=== PATIENT | male | born 1955 | race Caucasian/White ===

== ENCOUNTER 2023-01-25 06:43 | Emergency (ER) | payer OTHER ==
--- OUTSIDE RECORDS SUMMARY | 2023-01-25 06:51 | XMS REPORT | Continuity of Care Document ---
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 insulin 2020-08 Yes 80U Inject 80 [facility] glargine 2-13 Units into Colle ge (LANTUS) 13:08: the skin. of 100 UNIT/ML 50 Medicin injection e lisinopril 2020-08 Yes 10mg Take 10 mg [facility] (PRINIVIL, 2-13 by mouth. Sharad BERG) 10 13:08: of MG tablet 50 Medicin e Multiple 2020-08 Yes Take by [facility] Vitamins-Mi 2-13 mouth. [facility] e nerals 13:08: of (CENTRUM) 50 Medicin CHEW e rosuvastati 2020-08 Yes 10mg Take 10 mg Juan J n (CRESTOR) 2-13 by mouth. Col lege 10 MG 13:08: of tablet 50 Medicin e Icosapent 2020-08 Yes Take by [facility] Ethyl 1 g 2-13 mouth. [facility] CAPS 13:08: of 50 Medicin e clopidogrel 2020-08 Yes 75mg Take 75 mg Juan J (PLAVIX) 75 2-13 by mouth. [facility] lege MG tablet 13:08: of 50 Medicin e Coenzyme 2020-08 Yes 200mg Take 200 [facility] Q-10 200 MG 2-13 mg by [facility] CAPS 13:08: mouth. of 50 Medicin e folic acid 2020-08 Yes 1mg Take 1 mg [facility] (FOLVITE) 1 2-13 by mouth. [facility] lege MG tablet 13:08: of 50 Medicin e insulin 2020-08 Yes 80U Inject 80 [facility] glargine 2-13 Units into Colle ge (LANTUS) 13:08: the skin. of 100 UNIT/ML 50 Medicin injection e lisinopril 2020-08 Yes 10mg Take 10 mg [facility] (PRINIVIL, 2-13 by mouth. Sharad ege ZESTRIL) 10 13:08: of MG tablet 50 Medicin e Multiple 2020-08 Yes Take by [facility] Vitamins-Mi 2-13 mouth. [facility] e nerals 13:08: of (CENTRUM) 50 Medicin CHEW e rosuvastati 2020-08 Yes 10mg Take 10 mg [facility] n (CRESTOR) 2-13 by mouth. Col lege 10 MG 13:08: of tablet 50 Medicin e Icosapent 2020-08 Yes Take by [facility] Ethyl 1 g 2-13 mouth. College CAPS 13:08: of 50 Medicin e clopidogrel 2020-08 Yes 75mg Take 75 mg Juan J (PLAVIX) 75 1-08 by mouth. Col lege MG tablet 13:54: of 48 Medicin e Coenzyme 2020-08 Yes 200mg Take 200 [facility] Q-10 200 MG 1-08 mg by [facility] CAPS 13:54: mouth. of 48 Medicin e folic acid 2020-08 Yes 1mg Take 1 mg [facility] (FOLVITE) 1 1-08 by mouth. Col lege MG tablet 13:54: of 48 Medicin e insulin 2020-08 Yes 80U Inject 80 [facility] glargine 1-08 Units into Colle ge (LANTUS) 13:54: the skin. of 100 UNIT/ML 48 Medicin injection e lisinopril 2020-08 Yes 10mg Take 10 mg [facility] (PRINIVIL, 1-08 by mouth. Sharad GAYLERIL) 10 13:54: of MG tablet 48 Medicin e Multiple 2020-08 Yes Take by [facility] Vitamins-Mi 1-08 mouth. [facility] e nerals 13:54: of (CENTRUM) 48 Medicin CHEW e rosuvastati 2020-08 Yes 10mg Take 10 mg Juan J n (CRESTOR) 1-08 by mouth. Col lege 10 MG 13:54: of tablet 48 Medicin e Icosapent 2020-08 Yes Take by [facility] Ethyl 1 g 1-08 mouth. College CAPS 13:54: of 48 Medicin e insulin 2019-0 Yes 80U Inject 80 [facility] glargine 6-29 Units into Colle ge (LANTUS) 19:55: the skin. of 100 UNIT/ML 23 Medicin injection e lisinopril 0 Yes 10mg Take 10 mg [facility] (PRINIVIL, 6-29 by mouth. Sharad BERG) 10 19:55: of MG tablet 23 Medicin e Multiple 2020-0 Yes Take by [facility] Vitamins-Mi 6-29 mouth. [facility] e nerals 19:55: of (CENTRUM) 23 Medicin CHEW e rosuvastati 2020-0 Yes 10mg Take 10 mg [facility] n (CRESTOR) 6-29 by mouth. Col lege 10 MG 19:55: of tablet 23 Medicin e Icosapent 2020-0 Yes Take by [facility] Ethyl 6-29 mouth. [facility] 1 19:55: of g CAPS 23 Medicin e clopidogrel 2020-0 Yes 75mg Take 75 mg Juan J (PLAVIX) 75 6-29 by mouth. Col lege MG tablet 19:55: of 23 Medicin e folic acid 2020-0 Yes 1mg Take 1 mg [facility] (FOLVITE) 1 6-29 by mouth. Col lege MG tablet 19:55: of 23 Medicin e insulin 2020-0 Yes 80U Inject 80 [facility] glargine 6-29 Units into Colle ge (LANTUS) 19:55: the skin. of 100 UNIT/ML 23 Medicin injection e lisinopril 2020-0 Yes 10mg Take 10 mg [facility] (PRINIVIL, 6-29 by mouth. Sharad BERG) 10 19:55: of MG tablet 23 Medicin e Multiple 2020-0 Yes Take by [facility] Vitamins-Mi 6-29 mouth. [facility] e nerals 19:55: of (CENTRUM) 23 Medicin CHEW e rosuvastati 2020-0 Yes 10mg Take 10 mg [facility] n (CRESTOR) 6-29 by mouth. Col lege 10 MG 19:55: of tablet 23 Medicin e Icosapent 2020-0 Yes Take by [facility] Ethyl 6-29 mouth. [place] ([facility] 1 19:55: of g CAPS 23 Medicin e clopidogrel 2020-0 Yes 75mg Take 75 mg Juan J (PLAVIX) 75 6-29 by mouth. Col lege MG tablet 19:55: of 23 Medicin e folic acid 2020-0 Yes 1mg Take 1 mg [facility] (FOLVITE) 1 6-29 by mouth. Col lege MG tablet 19:55: of 23 Medicin e arginine 2020-0 2020- No 1000mg Take 1,000 Juan J 500 MG 6-29 06-29 mg by [place] tablet 19:55: 00:00 mouth. of 23 :00 Medicin e B Complex 2020-0 2020- No 1{tbl} Take 1 Altha kathy Vitamins 6-29 06-29 tablet by [facility] (VITAMIN-B 19:55: 00:00 mouth. of COMPLEX) 23 :00 Medicin TABS e Icosapent 2020-0 Yes Take by [facility] Ethyl 4-09 mouth. [place] (VASCEPA) 1 15:05: of g CAPS 18 Medicin e arginine 2020-0 Yes 1000mg Take 1,000 B aylor 500 MG 4-09 mg by [place] tablet 15:04: mouth. of 05 Medicin e B Complex 2020-0 Yes 1{tbl} Take 1 [facility]l or Vitamins 4-09 tablet by [facility] (VITAMIN-B 15:04: mouth. of COMPLEX) 05 Medicin TABS e clopidogrel 2020-0 Yes 75mg Take 75 mg [facility] (PLAVIX) 75 4-09 by mouth. Col lege MG tablet 15:04: of 05 Medicin e Coenzyme 2020-0 Yes 200mg Take 200 [facility] or Q-10 200 MG 4-09 mg by [place] CAPS 15:04: mouth. of 05 Medicin e folic acid 2020-0 Yes 1mg Take 1 mg [facility] (FOLVITE) 1 4-09 by mouth. Col lege MG tablet 15:04: of 05 Medicin e insulin 2020-0 Yes 80U Inject 80 [facility] r glargine 4-09 Units into [facility] (LANTUS) 15:04: the skin. of 100 UNIT/ML 05 Medicin injection e lisinopril 2020-0 Yes 10mg Take 10 mg [facility] (PRINIVIL, 4-09 by mouth. Sharad ege ZESTRIL) 10 15:04: of MG tablet 05 Medicin e Multiple 2020-0 Yes Take by [facility] Vitamins-Mi 4-09 mouth. [facility] nerals 15:04: of (CENTRUM) 05 Medicin CHEW e rosuvastati 2020-0 Yes 10mg Take 10 mg [facility] n (CRESTOR) 4-09 by mouth. Col lege 10 MG 15:04: of tablet 05 Medicin e Coenzyme 2019-0 Yes 200mg Take 200 [facility] Q-10 200 MG 4-09 mg by [facility] CAPS 15:04: mouth. of 05 Medicin e Coenzyme 2019-0 Yes 200mg Take 200 [facility] Q-10 200 MG 4-09 mg by [facility] CAPS 15:04: mouth. of 05 Medicin e Garlic 1000 2020- No 1000mg Take 1,000 Juan J MG CAPS 4 04-09 mg by College 15:04: 00:00 mouth. of 05 :00 Medicin e RaNITidine 2020- No 150mg Take 150 [facility] HCl 150 MG 4- 04-09 mg by [facility] CAPS 15:03: 00:00 mouth. of 50 :00 Medicin e Newborn-3-aci 2019- No 2g Take 2 g [facility] d Ethyl 11-25 04-09 by mouth. Colleg e Esters 1 g 15:03: 00:00 of CAPS 17 :00 Medicin e levofloxaci 2017-08 2020- No 750mg Take 1 Tab Juan J n 2-21 04-09 by mouth [place] ([facility]) 00:00: 00:00 daily. of 750 MG 00 :00 Medicin tablet e multivit-ir 2017-08 Yes Chew. Metho di on-min-foli 2-10 st c acid 10:35: Hospita (multivitam 06 l in-iron-min erals-folic acid) 3,500-18-0. 4 unit-mg-mg tablet,chew able chewable tablet folic acid 2017-08 Yes 1mg Take 1 mg [facility] (FOLVITE) 1 2-[address] [facility] tablet 10:35: Hospita 06 l ranitidine 2017-08 Yes 150mg Take 150 [facility] (ZANTAC) 2-[address] 150 MG 10:35: mouth. Hospita capsule 06 l TRULICITY 2017-08 Yes INJECT 1 [facility] 0.75 mg/0.5 0-[address] mL pen 00:00: ONCE A Hospita injector 00 WEEK l Cadexomer 2017-08 2020- No Apply to Altha kathy Iodine 0.9 0-03 04-09 affected Sharad ege % GEL 00:00: 00:00 area every of 00 :00 other day Medicin e omega-3 Yes TAKE 2 [facility] acid ethyl 05-[address] esters 00:00: BY MOUTH 2 Hospi ta (LOVAZA) 1 00 TIMES A l gram DAY capsule NOVOLOG 100 2017-0 Yes USE PER [facility] UNIT/ML 05-09 SLIDING College injection 00:00: SCALE of 00 TWICE A Medicin DAY e NOVOLOG 100 2018-0 Yes USE PER [facility] UNIT/ML 05-09 SLIDING College injection 00:00: SCALE of 00 TWICE A Medicin DAY e NOVOLOG 100 2018-0 Yes USE PER Juan J UNIT/ML 05-09 SLIDING College injection 00:00: SCALE of 00 TWICE A Medicin DAY e NOVOLOG 100 2017-0 Yes USE PER [facility] UNIT/ML 05-09 SLIDING College injection 00:00: SCALE of 00 TWICE A Medicin DAY e NOVOLOG 100 2017-0 Yes USE PER Juan J UNIT/ML 05-09 SLIDING College injection 00:00: SCALE of 00 TWICE A Medicin DAY e NOVOLOG 100 2018-0 Yes USE PER [facility] UNIT/ML 05-09 SLIDING College injection 00:00: SCALE of 00 TWICE A Medicin DAY e NOVOLOG 100 2017-0 Yes USE PER [facility] UNIT/ML 05-09 SLIDING College injection 00:00: SCALE of 00 TWICE A Medicin DAY e NOVOLOG 100 2018-0 Yes USE PER [facility] UNIT/ML 05-09 SLIDING College injection 00:00: SCALE of 00 TWICE A Medicin DAY e NOVOLOG 100 2018-0 Yes USE PER Juan J UNIT/ML 05-09 SLIDING College injection 00:00: SCALE of 00 TWICE A Medicin DAY e NOVOLOG 100 2018-0 Yes USE PER Juan J UNIT/ML 05-09 SLIDING College injection 00:00: SCALE of 00 TWICE A Medicin DAY e NOVOLOG 100 2018-0 Yes USE PER Juan J UNIT/ML 05-09 SLIDING College injection 00:00: SCALE of 00 TWICE A Medicin DAY e NOVOLOG 100 2018-0 Yes USE PER Juan J UNIT/ML 05-09 SLIDING College injection 00:00: SCALE of 00 TWICE A Medicin DAY e NOVOLOG 100 2018-0 Yes USE PER [facility] UNIT/ML 05-09 SLIDING College injection 00:00: SCALE of 00 TWICE A Medicin DAY e insulin 2018-0 Yes 20U Inject 20 Metho di ASPART 9-[address] (NovoLOG) 00:00: under the Hos nghia 100 unit/mL 00 skin. l injection NOVOLOG Yes USE PER Meth roula U-100 - SLIDING st INSULIN 00:00: SCALE Hospita ASPART 100 00 TWICE A l unit/mL DAY 90 injection lisinopril Yes 10mg Take 10 mg M ethodi (PRINIVIL,Z -[address] ESTRIL) 10 00:00: Hospita mg tablet 00 l rosuvastati Yes TAKE 1 Meth r[facility] n (CRESTOR) 05-[address] 10 MG 00:00: MOUTH Hospita tablet 00 EVERY l NIGHT AT BEDTIME 90 clopidogrel 2020- No TAKE 1 Altha kathy (PLAVIX) 75 05-08- TABLET BY Co llege MG tablet 00:00: 00:00 MOUTH of 00 :00 EVERY DAY Medicin e lisinopril 2019- No TAKE 1 [facility] (PRINIVIL, 05-08- TABLET BY Col legfarzana ZERIL) 10 00:00: 00:00 MOUTH of MG tablet 00 :00 EVERY DAY Medic in e ONE TOUCH Yes TEST TWICE [facility] ULTRA TEST 18 DAILY College 00:00: of 00 Medicin e ONE TOUCH Yes TEST TWICE [facility] ULTRA TEST 05-06 DAILY College 00:00: of 00 Medicin e ONE TOUCH Yes TEST TWICE [facility] ULTRA TEST 05-06 DAILY College 00:00: of 00 Medicin e ONE TOUCH Yes TEST TWICE [facility] ULTRA TEST 18 DAILY College 00:00: of 00 Medicin e ONE TOUCH Yes TEST TWICE [facility] ULTRA TEST 18 DAILY College 00:00: of 00 Medicin e ONE TOUCH Yes TEST TWICE [facility] ULTRA TEST 18 DAILY College 00:00: of 00 Medicin e ONE TOUCH Yes TEST TWICE [facility] ULTRA TEST 18 DAILY College 00:00: of 00 Medicin e ONE TOUCH Yes TEST TWICE [facility] ULTRA TEST 18 DAILY College 00:00: of 00 Medicin e ONE TOUCH Yes TEST TWICE [facility] ULTRA TEST 18 DAILY College 00:00: of 00 Medicin e ONE TOUCH Yes TEST TWICE [facility] ULTRA TEST 05-06 DAILY College 00:00: Medicin e ONE TOUCH Yes TEST TWICE [facility] ULTRA TEST 05-06 DAILY College 00:00: Medicin e ONE TOUCH Yes TEST TWICE [facility] ULTRA TEST 05-06 DAILY College 00:00: Medicin e ONE TOUCH Yes TEST TWICE [facility] ULTRA TEST 05-06 DAILY College 00:00: of Medicin e insulin Yes INJECT [facility] detemir 03-[address] U-100 00:00: SKIN 70 Hospita (LEVEMIR 00 UNITS l U-100 DAILY INSULIN) 100 unit/mL injection LEVEMIR 100 2019- No INJECT Altha kathy UNIT/ML 03-12 UNDER THE Colleg e injection 00:00: 00:00 SKIN 70 of 00 :00 UNITS Medicin DAILY e mafenide 2019- No Apply [facility] (SULFAMYLON 2-13 11-25 topically. C ollege ) cream 00:00: 00:00 of 00 :00 Medicin e nitrofurant nitrofurant No nitrofuran Mata oin oin toin [facility] monohydrate monohydrate monohydrat Urology /macrocryst /macrocryst e/macrocry als 100 mg als 100 mg stals 100 capsule capsule mg capsule Take 1 Take 1 Take 1 capsule capsule capsule every 12 every 12 every 12 hours by hours by hours by oral route. oral route. oral route. omega-3 omega-3 No omega-3 [place] acid ethyl acid ethyl acid ethyl [facility] esters 1 esters 1 esters 1 Uro logy gram gram gram capsule capsule capsule TAKE 2 TAKE 2 TAKE 2 CAPSULES BY CAPSULES BY CAPSULES MOUTH TWICE MOUTH TWICE BY MOUTH A DAY A DAY TWICE A DAY rosuvastati rosuvastati No rosuvastat [place] n 40 mg n 40 mg in 40 mg [facility] tablet TAKE tablet TAKE tablet Urology 1 TABLET BY 1 TABLET BY TAKE 1 MOUTH EVERY MOUTH EVERY TABLET BY DAY WITH DAY WITH MOUTH EVENING EVENING EVERY DAY MEAL MEAL WITH EVENING MEAL Rybelsus 3 Rybelsus 3 No Rybelsus 3 Mtaa mg tablet mg tablet mg tablet [facility] PLEASE SEE PLEASE SEE PLEASE SEE Urology ATTACHED ATTACHED ATTACHED FOR FOR FOR DETAILED DETAILED DETAILED DIRECTIONS DIRECTIONS DIRECTIONS Spiriva Spiriva No Spiriva [place] Respimat Respimat Respimat Met ro 1.25 1.25 1.25 Urology mcg/actuati mcg/actuati mcg/actuat on solution on solution ion for for solution inhalation inhalation for INHALE 2 INHALE 2 inhalation PUFFS BY PUFFS BY INHALE 2 MOUTH DAILY MOUTH DAILY PUFFS BY MOUTH DAILY tadalafil tadalafil No tadalafil [place] 10 mg 10 mg 10 mg [facility] tablet TAKE tablet TAKE tablet Urology ONE (1) ONE (1) TAKE ONE TABLET(S) TABLET(S) (1) BY MOUTH BY MOUTH TABLET(S) DAILY. DAILY. BY MOUTH DAILY. tamsulosin tamsulosin No tamsulosin [place] 0.4 mg 0.4 mg 0.4 mg [facility] capsule capsule capsule Urolog y TAKE ONE TAKE ONE TAKE ONE (1) (1) (1) CAPSULE(S) CAPSULE(S) CAPSULE(S) BY MOUTH BY MOUTH BY MOUTH DAILY. DAILY. DAILY. amoxicillin amoxicillin No amoxicilli [place] 500 mg 500 mg n 500 mg [facility] capsule capsule capsule Urolog y TAKE 1 TAKE 1 TAKE 1 CAPSULE BY CAPSULE BY CAPSULE BY MOUTH THREE MOUTH THREE MOUTH TIMES A DAY TIMES A DAY THREE UNTIL UNTIL TIMES A FINISHED FINISHED DAY UNTIL FINISHED BD Veo BD Veo No BD Veo [place] Insulin Insulin Insulin [facility] Syringe Syringe Syringe Urolog y Ultra-Fine Ultra-Fine Ultra-Fine 1 mL 31 1 mL 31 1 mL 31 gauge x gauge x gauge x 15/64" USE 15/64" USE 15/64" USE FOR INSULIN FOR INSULIN FOR INJECTIONS INJECTIONS INSULIN 3 TIMES A 3 TIMES A INJECTIONS DAY DAY 3 TIMES A DAY brimonidine brimonidine No brimonidin [place] 0.2 % eye 0.2 % eye e 0.2 % Me tro drops drops eye drops Urology INSTILL 1 INSTILL 1 INSTILL 1 DROP INTO DROP INTO DROP INTO BOTH EYES BOTH EYES BOTH EYES TWICE A DAY TWICE A DAY TWICE A DAY ciprofloxac ciprofloxac No ciprofloxa [place] in 500 mg in 500 mg yasmine 500 mg [facility] tablet TAKE tablet TAKE tablet Urology 1 TABLET BY 1 TABLET BY TAKE 1 MOUTH EVERY MOUTH EVERY TABLET BY 12 HOURS 12 HOURS MOUTH EVERY 12 HOURS clopidogrel clopidogrel No clopidogre Mata 75 mg 75 mg l 75 mg [facility] tablet TAKE tablet TAKE tablet Urology 1 TABLET BY 1 TABLET BY TAKE 1 MOUTH EVERY MOUTH EVERY TABLET BY DAY DAY MOUTH EVERY DAY Co Q-10 100 Co Q-10 100 No Co Q-10 Mata mg capsule mg capsule 100 mg M etro capsule Urology hydrocodone hydrocodone No hydrocodon [place] 10 10 e 10 [facility] mg-acetamin mg-acetamin mg-acetami Urology ophen 325 ophen 325 nophen 325 mg tablet mg tablet mg tablet TAKE 1 TAKE 1 TAKE 1 TABLET BY TABLET BY TABLET BY MOUTH EVERY MOUTH EVERY MOUTH 6 HOURS 6 HOURS EVERY 6 NEEDED NEEDED HOURS NEEDED Lantus Lantus No Lantus [place] U-100 U-100 U-100 [facility] Insulin Insulin Insulin Urolog y Lantus Lantus No Lantus [place] U-100 U-100 U-100 [facility] Insulin 100 Insulin 100 Insulin Urology unit/mL unit/mL 100 subcutaneou subcutaneou unit/mL s solution s solution subcutaneo INJECT 90 INJECT 90 us UNITS UNITS solution SUBCUTANEOU SUBCUTANEOU INJECT 90 SLY ONCE A SLY ONCE A UNITS DAY AT THE DAY AT THE SUBCUTANEO SAME TIME SAME TIME USLY ONCE A DAY AT THE SAME TIME lisinopril lisinopril No lisinopril [place] 20 mg 20 mg 20 mg [facility] tablet TAKE tablet TAKE tablet Urology 1 TABLET BY 1 TABLET BY TAKE 1 MOUTH EVERY MOUTH EVERY TABLET BY DAY DAY MOUTH EVERY DAY metoprolol metoprolol No metoprolol [place] succinate succinate succinate [facility] ER 25 mg ER 25 mg ER 25 mg Uro logy tablet,exte tablet,exte tablet,ext nded nded ended release 24 release 24 release 24 hr TAKE 1 hr TAKE 1 hr TAKE 1 TABLET BY TABLET BY TABLET BY MOUTH EVERY MOUTH EVERY MOUTH DAY DAY EVERY DAY nitrofurant nitrofurant No nitrofuran [place] oin oin toin [facility] macrocrysta macrocrysta macrocryst Urology l 100 mg l 100 mg al 100 mg capsule capsule capsule TAKE 1 TAKE 1 TAKE 1 CAPSULE BY CAPSULE BY CAPSULE BY MOUTH EVERY MOUTH EVERY MOUTH DAY FOR 90 DAY FOR 90 EVERY DAY DAYS DAYS FOR 90 DAYS nitrofurant nitrofurant No nitrofuran [place] oin oin toin [facility] monohydrate monohydrate monohydrat Urology /macrocryst /macrocryst e/macrocry als 100 mg als 100 mg stals 100 capsule capsule mg capsule Take 1 Take 1 Take 1 capsule capsule capsule every 12 every 12 every 12 hours by hours by hours by oral route. oral route. oral route. Novolog Novolog No Novolog [place] U-100 U-100 U-100 [facility] Insulin Insulin Insulin Urolog y aspart aspart aspart omega-3 omega-3 No omega-3 [place] acid ethyl acid ethyl acid ethyl [facility] esters 1 esters 1 esters 1 Uro logy gram gram gram capsule capsule capsule TAKE 2 TAKE 2 TAKE 2 CAPSULES BY CAPSULES BY CAPSULES MOUTH TWICE MOUTH TWICE BY MOUTH A DAY A DAY TWICE A DAY rosuvastati rosuvastati No rosuvastat [place] n 20 mg n 20 mg in 20 mg [facility] tablet tablet tablet Urology rosuvastati rosuvastati No rosuvastat [place] n 40 mg n 40 mg in 40 mg [facility] tablet TAKE tablet TAKE tablet Urology 1 TABLET BY 1 TABLET BY TAKE 1 MOUTH EVERY MOUTH EVERY TABLET BY DAY WITH DAY WITH MOUTH EVENING EVENING EVERY DAY MEAL MEAL WITH EVENING MEAL Rybelsus 3 Rybelsus 3 No Rybelsus 3 Mata mg tablet mg tablet mg tablet [facility] PLEASE SEE PLEASE SEE PLEASE SEE Urology ATTACHED ATTACHED ATTACHED FOR FOR FOR DETAILED DETAILED DETAILED DIRECTIONS DIRECTIONS DIRECTIONS amoxicillin amoxicillin No amoxicilli [place] 500 mg 500 mg n 500 mg [facility] capsule capsule capsule Urolog y TAKE 1 TAKE 1 TAKE 1 CAPSULE BY CAPSULE BY CAPSULE BY MOUTH THREE MOUTH THREE MOUTH TIMES A DAY TIMES A DAY THREE UNTIL UNTIL TIMES A FINISHED FINISHED DAY UNTIL FINISHED Spiriva Spiriva No Spiriva [place] Respimat Respimat Respimat Met ro 1.25 1.25 1.25 Urology mcg/actuati mcg/actuati mcg/actuat on solution on solution ion for for solution inhalation inhalation for INHALE 2 INHALE 2 inhalation PUFFS BY PUFFS BY INHALE 2 MOUTH DAILY MOUTH DAILY PUFFS BY MOUTH DAILY tadalafil tadalafil No tadalafil [place] 10 mg 10 mg 10 mg [facility] tablet TAKE tablet TAKE tablet Urology ONE (1) ONE (1) TAKE ONE TABLET(S) TABLET(S) (1) BY MOUTH BY MOUTH TABLET(S) DAILY. DAILY. BY MOUTH DAILY. tadalafil tadalafil No tadalafil [place] 20 mg 20 mg 20 mg [facility] tablet TAKE tablet TAKE tablet Urology ONE (1) ONE (1) TAKE ONE TABLET(S) TABLET(S) (1) BY MOUTH BY MOUTH TABLET(S) DAILY. DAILY. BY MOUTH DAILY. tamsulosin tamsulosin No tamsulosin [place] 0.4 mg 0.4 mg 0.4 mg [facility] capsule capsule capsule Urolog y TAKE ONE TAKE ONE TAKE ONE (1) (1) (1) CAPSULE(S) CAPSULE(S) CAPSULE(S) BY MOUTH BY MOUTH BY MOUTH DAILY. DAILY. DAILY. BD Veo BD Veo No BD Veo [facility] Insulin Insulin Insulin [facility] Syringe Syringe Syringe Urolog y Ultra-Fine Ultra-Fine Ultra-Fine 1 mL 31 1 mL 31 1 mL 31 gauge x gauge x gauge x " USE " USE " USE FOR INSULIN FOR INSULIN FOR INJECTIONS INJECTIONS INSULIN 3 TIMES A 3 TIMES A INJECTIONS DAY DAY 3 TIMES A DAY brimonidine brimonidine No brimonidin Mata 0.2 % eye 0.2 % eye e 0.2 % Me tro drops PUT drops PUT eye drops Urology ONE DROP ONE DROP PUT ONE TWICE A DAY TWICE A DAY DROP TWICE INTO RIGHT INTO RIGHT A DAY INTO EYE EYE RIGHT EYE Cialis 10 Cialis 10 No 1 Q1D Cialis 10 Mata mg tablet mg tablet mg tablet [facility] Take 1 Take 1 Take 1 Urology tablet tablet tablet every day every day every day by oral by oral by oral route. route. route. ciprofloxac ciprofloxac No ciprofloxa [place] in 500 mg in 500 mg yasmine 500 mg [facility] tablet TAKE tablet TAKE tablet Urology 1 TABLET BY 1 TABLET BY TAKE 1 MOUTH TWICE MOUTH TWICE TABLET BY A DAY A DAY MOUTH TWICE A DAY clopidogrel clopidogrel No clopidogre [place] 75 mg 75 mg l 75 mg [facility] tablet TAKE tablet TAKE tablet Urology 1 TABLET BY 1 TABLET BY TAKE 1 MOUTH EVERY MOUTH EVERY TABLET BY DAY DAY MOUTH EVERY DAY Flomax 0.4 Flomax 0.4 No 1capsul Q1D Flomax 0.4 Mata mg capsule mg capsule e(s) mg capsule [facility] Take 1 Take 1 Take 1 Urology capsule capsule capsule every day every day every day by oral by oral by oral route. route. route. hydrocodone hydrocodone No hydrocodon [place] 10 10 e 10 [facility] mg-acetamin mg-acetamin mg-acetami Urology ophen 325 ophen 325 nophen 325 mg tablet mg tablet mg tablet TAKE 1 TAKE 1 TAKE 1 TABLET BY TABLET BY TABLET BY MOUTH EVERY MOUTH EVERY MOUTH 6 HOURS 6 HOURS EVERY 6 NEEDED NEEDED HOURS NEEDED Lantus Lantus No Lantus [place] U-100 U-100 U-100 [facility] Insulin 100 Insulin 100 Insulin Urology unit/mL unit/mL 100 subcutaneou subcutaneou unit/mL s solution s solution subcutaneo INJECT 90 INJECT 90 us UNITS UNITS solution SUBCUTANEOU SUBCUTANEOU INJECT 90 SLY ONCE A SLY ONCE A UNITS DAY AT THE DAY AT THE SUBCUTANEO SAME TIME SAME TIME USLY ONCE A DAY AT THE SAME TIME lisinopril lisinopril No lisinopril [place] 20 mg 20 mg 20 mg [facility] tablet TAKE tablet TAKE tablet Urology 1 TABLET BY 1 TABLET BY TAKE 1 MOUTH EVERY MOUTH EVERY TABLET BY DAY DAY MOUTH EVERY DAY metoprolol metoprolol No metoprolol [place] succinate succinate succinate [facility] ER 25 mg ER 25 mg ER 25 mg Uro logy tablet,exte tablet,exte tablet,ext nded nded ended release 24 release 24 release 24 hr TAKE 1 hr TAKE 1 hr TAKE 1 TABLET BY TABLET BY TABLET BY MOUTH EVERY MOUTH EVERY MOUTH DAY DAY EVERY DAY omega-3 omega-3 No omega-3 [place] acid ethyl acid ethyl acid ethyl [facility] esters 1 esters 1 esters 1 Uro logy gram gram gram capsule capsule capsule TAKE 2 TAKE 2 TAKE 2 CAPSULES BY CAPSULES BY CAPSULES MOUTH TWICE MOUTH TWICE BY MOUTH A DAY A DAY TWICE A DAY rosuvastati rosuvastati No rosuvastat [place] n 40 mg n 40 mg in 40 mg [facility] tablet TAKE tablet TAKE tablet Urology 1 TABLET BY 1 TABLET BY TAKE 1 MOUTH EVERY MOUTH EVERY TABLET BY DAY WITH DAY WITH MOUTH EVENING EVENING EVERY DAY MEAL MEAL WITH EVENING MEAL Rybelsus 3 Rybelsus 3 No Rybelsus 3 Mata mg tablet mg tablet mg tablet [facility] PLEASE SEE PLEASE SEE PLEASE SEE Urology ATTACHED ATTACHED ATTACHED FOR FOR FOR DETAILED DETAILED DETAILED DIRECTIONS DIRECTIONS DIRECTIONS Spiriva Spiriva No Spiriva [place] Respimat Respimat Respimat Met ro 1.25 1.25 1.25 Urology mcg/actuati mcg/actuati mcg/actuat on solution on solution ion for for solution inhalation inhalation for INHALE 2 INHALE 2 inhalation PUFFS BY PUFFS BY INHALE 2 MOUTH DAILY MOUTH DAILY PUFFS BY MOUTH DAILY amoxicillin amoxicillin No amoxicilli [place] 500 mg 500 mg n 500 mg [facility] capsule capsule capsule Urolog y TAKE 1 TAKE 1 TAKE 1 CAPSULE BY CAPSULE BY CAPSULE BY MOUTH THREE MOUTH THREE MOUTH TIMES A DAY TIMES A DAY THREE UNTIL UNTIL TIMES A FINISHED FINISHED DAY UNTIL FINISHED BD Veo BD Veo No BD Veo [facility] Insulin Insulin Insulin [facility] Syringe Syringe Syringe Urolog y Ultra-Fine Ultra-Fine Ultra-Fine 1 mL 31 1 mL 31 1 mL 31 gauge x gauge x gauge x " USE " USE " USE FOR INSULIN FOR INSULIN FOR INJECTIONS INJECTIONS INSULIN 3 TIMES A 3 TIMES A INJECTIONS DAY DAY 3 TIMES A DAY brimonidine brimonidine No brimonidin [place] 0.2 % eye 0.2 % eye e 0.2 % Me tro drops PUT drops PUT eye drops Urology ONE DROP ONE DROP PUT ONE TWICE A DAY TWICE A DAY DROP TWICE INTO RIGHT INTO RIGHT A DAY INTO EYE EYE RIGHT EYE Cialis 20 Cialis 20 No 1 Q1D Cialis 20 Mata mg tablet mg tablet mg tablet [facility] Take 1 Take 1 Take 1 Urology tablet tablet tablet every day every day every day by oral by oral by oral route. route. route. ciprofloxac ciprofloxac No ciprofloxa [place] in 500 mg in 500 mg yasmine 500 mg [facility] tablet TAKE tablet TAKE tablet Urology 1 TABLET BY 1 TABLET BY TAKE 1 MOUTH TWICE MOUTH TWICE TABLET BY A DAY A DAY MOUTH TWICE A DAY clopidogrel clopidogrel No clopidogre [place] 75 mg 75 mg l 75 mg [facility] tablet TAKE tablet TAKE tablet Urology 1 TABLET BY 1 TABLET BY TAKE 1 MOUTH EVERY MOUTH EVERY TABLET BY DAY DAY MOUTH EVERY DAY hydrocodone hydrocodone No hydrocodon [place] 10 10 e 10 [facility] mg-acetamin mg-acetamin mg-acetami Urology ophen 325 ophen 325 nophen 325 mg tablet mg tablet mg tablet TAKE 1 TAKE 1 TAKE 1 TABLET BY TABLET BY TABLET BY MOUTH EVERY MOUTH EVERY MOUTH 6 HOURS 6 HOURS EVERY 6 NEEDED NEEDED HOURS NEEDED Lantus Lantus No Lantus [place] U-100 U-100 U-100 [facility] Insulin 100 Insulin 100 Insulin Urology unit/mL unit/mL 100 subcutaneou subcutaneou unit/mL s solution s solution subcutaneo INJECT 90 INJECT 90 us UNITS UNITS solution SUBCUTANEOU SUBCUTANEOU INJECT 90 SLY ONCE A SLY ONCE A UNITS DAY AT THE DAY AT THE SUBCUTANEO SAME TIME SAME TIME USLY ONCE A DAY AT THE SAME TIME lisinopril lisinopril No lisinopril [place] 20 mg 20 mg 20 mg [facility] tablet TAKE tablet TAKE tablet Urology 1 TABLET BY 1 TABLET BY TAKE 1 MOUTH EVERY MOUTH EVERY TABLET BY DAY DAY MOUTH EVERY DAY metoprolol metoprolol No metoprolol [place] succinate succinate succinate [facility] ER 25 mg ER 25 mg ER 25 mg Uro logy tablet,exte tablet,exte tablet,ext nded nded ended release 24 release 24 release 24 hr TAKE 1 hr TAKE 1 hr TAKE 1 TABLET BY TABLET BY TABLET BY MOUTH EVERY MOUTH EVERY MOUTH DAY DAY EVERY DAY nitrofurant nitrofurant No 1capsul Q1D nitrofuran [place] oin oin e(s) toin [facility] macrocrysta macrocrysta macrocryst U[facility] l 100 mg l 100 mg al 100 mg capsule capsule capsule Take 1 Take 1 Take 1 capsule capsule capsule every day every day every day by oral by oral by oral route for route for route for 90 days. 90 days. 90 days. take twice take twice take twice a day for a day for a day for the first the first the first week, then week, then week, then take one take one take one pill daily pill daily pill daily x 3 months x 3 months x 3 months Vital Signs Vital Name Observation Time Observation Value Comments Source HEIGHT 2023-01-07 11:46:00 180.3 cm WEIGHT 2023-01-07 11:46:00 88.451 kg HEIGHT 2023-01-07 11:46:00 180.3 cm WEIGHT 2023-01-07 11:46:00 88.451 kg HEIGHT 2023-01-07 11:46:00 180.3 cm WEIGHT 2023-01-07 11:46:00 88.451 kg Body height 2022-11-01 16:16:00 180.3 cm [facility] [place] weight 2022-11-01 16:16:00 94.802 kg [facility] BMI 2022-11-01 16:16:00 29.15 kg/m2 [facility] HEIGHT 2022-10-17 10:05:00 180.3 cm WEIGHT 2022-10-17 10:05:00 92.3 kg HEIGHT 2022-09-27 11:34:00 180.3 cm WEIGHT 2022-09-27 11:34:00 89.359 kg HEIGHT 2022-10-17 10:05:00 180.3 cm WEIGHT 2022-10-17 10:05:00 92.3 kg HEIGHT 2022-09-27 11:34:00 180.3 cm WEIGHT 2022-09-27 11:34:00 89.359 kg HEIGHT 2022-10-17 10:05:00 180.3 cm WEIGHT 2022-10-17 10:05:00 92.3 kg HEIGHT 2022-09-27 11:34:00 180.3 cm WEIGHT 2022-09-27 11:34:00 89.359 kg Height 2022-10-11 00:00:00 71 [in_i] [facility] Urolog BMI (Body Mass Index) 2022-10-11 00:00:00 27.2 kg/m2 [facility] Body Weight 2022-10-11 00:00:00 195 [lb_av] [facility] Systolic blood 2022-07-24 15:45:00 130 mm[Hg] [facility] of pressure Medicine Diastolic blood 2022-07-24 15:45:00 80 mm[Hg] [facility] of pressure Medicine Heart rate 2022-07-24 15:45:00 78 /min [facility] Body height 2022-07-24 15:45:00 180.3 cm [facility] Body weight 2022-07-24 15:45:00 90.719 kg [facility] BMI 2022-07-24 15:45:00 27.89 kg/m2 [facility] Body height 2022-07-16 21:31:00 180.3 cm [facility] Body weight 2022-07-16 21:31:00 90.719 kg [facility] BMI 2022-07-16 21:31:00 27.89 kg/m2 [facility] Height 2022-07-16 00:00:00 71 [in_i] [facility] Urolog BMI (Body Mass Index) 2022-07-16 00:00:00 27.2 kg/m2 [facility] Body Weight 2022-07-16 00:00:00 195 [lb_av] [facility] BP Diastolic 2022-05-22 00:00:00 84 mm[Hg] [facility] Height 2022-05-22 00:00:00 71 [in_i] [facility] BMI (Body Mass Index) 2022-05-22 00:00:00 27.2 kg/m2 [facility] BP Systolic 2022-05-22 00:00:00 138 mm[Hg] [facility] Body Weight 2022-05-22 00:00:00 195 [lb_av] [facility] Body height 2021-11-16 16:08:00 180.3 cm [facility] Body weight 2021-11-16 16:08:00 90.719 kg [facility] BMI 2021-11-16 16:08:00 27.89 kg/m2 [facility] Body height 2021-10-19 14:55:00 180.3 cm [facility] Body weight 2021-10-19 14:55:00 90.719 kg [facility] BMI 2021-10-19 14:55:00 27.89 kg/m2 [facility] HEIGHT 2021-10-04 13:55:00 180.3 cm WEIGHT 2021-10-04 13:55:00 90.719 kg HEIGHT 2021-09-25 17:17:00 180.3 cm WEIGHT 2021-09-25 17:17:00 90.719 kg HEIGHT 2021-10-04 13:55:00 180.3 cm WEIGHT 2021-10-04 13:55:00 90.719 kg HEIGHT 2021-09-25 17:17:00 180.3 cm WEIGHT 2021-09-25 17:17:00 90.719 kg Body height 2021-08-10 15:04:00 180.3 cm [facility] Body weight 2021-08-10 15:04:00 90.719 kg [facility] BMI 2021-08-10 15:04:00 27.89 kg/m2 [facility] Body height 2021-08-08 20:15:00 180.3 cm [facility] Body weight 2021-08-08 20:15:00 90.719 kg [facility] BMI 2021-08-08 20:15:00 27.89 kg/m2 [facility] Systolic blood 2021-08-03 15:29:00 153 mm[Hg] [facility] Medicine Diastolic blood 2021-08-03 15:29:00 66 mm[Hg] [facility] Medicine Heart rate 2021-08-03 15:29:00 74 /min [facility] Body temperature 2021-08-03 15:29:00 36.11 Lelo [facility] Body height 2021-08-03 15:29:00 180.3 cm [facility] Body weight 2021-08-03 15:29:00 92.987 kg [facility] ol[facility] of Medicine BMI 2021-08-03 15:29:00 28.59 kg/m2 [facility] Systolic blood 2021-07-31 19:08:00 176 mm[Hg] [facility] Medicine Diastolic blood 2021-07-31 19:08:00 74 mm[Hg] [facility] Medicine Heart rate 2021-07-31 19:08:00 76 /min [facility] Body height 2021-07-31 19:08:00 180.3 cm [facility] Body weight 2021-07-31 19:08:00 92.987 kg [facility] ol[facility] of Medicine BMI 2021-07-31 19:08:00 28.59 kg/m2 [facility] ol[facility] of Medicine Systolic blood 2021-06-26 19:52:00 192 mm[Hg] [facility] pressure Medicine Diastolic blood 2021-06-26 19:52:00 72 mm[Hg] [facility] Medicine Heart rate 2021-06-26 19:52:00 78 /min [facility] ol[facility] of Medicine Respiratory rate 2021-06-26 19:52:00 17 /min [facility] Body height 2021-06-26 19:52:00 180.3 cm [facility] of Medicine Body weight 2021-06-26 19:52:00 93.078 kg [facility] ol[facility] of Medicine BMI 2021-06-26 19:52:00 28.62 kg/m2 [facility] ol[facility] of Medicine Systolic blood 2020-02-15 19:54:00 158 mm[Hg] [facility] Medicine Diastolic blood 2020-02-15 19:54:00 75 mm[Hg] [facility] Medicine Heart rate 2020-02-15 19:54:00 84 /min [facility] ol[facility] of Medicine Body height 2020-02-15 19:54:00 180.3 cm [facility] of Medicine Body weight 2020-02-15 19:54:00 90.719 kg [facility] ol[facility] of Medicine BMI 2020-02-15 19:54:00 27.89 kg/m2 [facility] of Medicine Systolic blood 2019-11-26 15:04:00 160 mm[Hg] [facility] Medicine Diastolic blood 2019-11-26 15:04:00 75 mm[Hg] [facility] Medicine Heart rate 2019-11-26 15:04:00 80 /min [facility] of Medicine Body height 2019-11-26 15:04:00 180.3 cm [facility] of Medicine Body weight 2019-11-26 15:04:00 90.719 kg [facility] of Medicine BMI 2019-11-26 15:04:00 27.89 kg/m2 [facility] of Medicine Systolic blood 2023-01-16 13:20:00 126 mm[Hg] [facility] Diastolic blood 2023-01-16 13:20:00 57 mm[Hg] [facility] Heart rate 2023-01-16 13:20:00 78 /min [facility] Body temperature 2023-01-16 13:20:00 36.17 Leol [facility] Respiratory rate 2023-01-16 13:20:00 16 /min [facility] Oxygen saturation in 2023-01-16 13:20:00 100 /min [facility] Arterial blood by Medical Ce nter Pulse oximetry Body height 2023-01-07 11:46:00 180.3 cm [facility] Body weight 2023-01-07 11:46:00 88.451 kg [facility] BMI 2023-01-07 11:46:00 27.20 kg/m2 [facility] Systolic blood 2022-10-18 07:06:00 148 mm[Hg] [facility] Diastolic blood 2022-10-18 07:06:00 70 mm[Hg] [facility] Heart rate 2022-10-18 07:06:00 75 /min [facility] Body temperature 2022-10-18 07:06:00 36.61 Lelo [facility] Respiratory rate 2022-10-18 07:06:00 17 /min [facility] Oxygen saturation in 2022-10-18 07:06:00 93 /min [facility] Arterial blood by Medical Ce nter Pulse oximetry Body height 2022-10-17 10:05:00 180.3 cm [facility] Body weight 2022-10-17 10:05:00 92.3 kg [facility] BMI 2022-10-17 10:05:00 28.38 kg/m2 [facility] Procedures Procedure Date / Time Performing Clinician Source Performed POCT-GLUCOSE METER 2023-01-16 17:03:00 [facility] ARTHROPLASTY, HIP 2023-01-16 13:20:00 [place] [facility] PROCEDURE W/ C-ARM 2023-01-16 13:20:00 [facility] POCT-GLUCOSE METER 2023-01-16 11:37:00 [facility] XR PELVIS 1 OR 2 VIEWS 2023-01-16 10:23:00 Marcia Doan [facility] POCT-GLUCOSE METER 2023-01-16 09:54:00 Martinez Michael [facility] ANESTHESIA SPINAL BLOCK 2023-01-16 07:53:02 Bar Henderson [facility] ARTHROPLASTY, HIP, 2023-01-16 07:29:[address] [facility] ANTERIOR APPROACH [facility] PROCEDURE W/ C-ARM 2023-01-16 07:29:00 [place] [facility] TYPE AND SCREEN, 2023-01-16 07:13:[address] [facility] AUTOMATED [facility] POCT-GLUCOSE METER 2023-01-16 07:12:00 Martinez [facility] POCT-GLUCOSE METER 2022-10-18 07:03:00 Henriquez, [facility] HEMOGLOBIN AND HEMATOCRIT 2022-10-18 03:55:00 Mary Marshall [facility] BASIC METABOLIC PANEL 2022-10-18 03:55:00 Mary Marshall [facility] POCT-GLUCOSE METER 2022-10-17 20:25:00 Martinez Michael [facility] POCT-GLUCOSE METER 2022-10-17 16:45:00 Alexus Henriquezvyn [facility] XR KNEE 1 OR 2 VIEWS 2022-10-17 15:24:[address] [facility] RIGHT [facility] POCT-GLUCOSE METER 2022-10-17 15:06:00 Michael Henriquez [facility] TISSUE EXAM 2022-10-17 13:26:00 Martinez Michael [facility] ANESTHESIA PERIPHERAL 2022-10-17 13:25:06 Enzo Lopez [facility] ANESTHESIA SPINAL BLOCK 2022-10-17 13:22:04 Enzo Lopez I [facility] ARTHROPLASTY, KNEE, 2022-10-17 12:54:00 Michael Henriquez [facility] UNILATERAL [facility] POCT-GLUCOSE METER 2022-10-17 10:12:00 Michael Henriquez [facility] TYPE AND SCREEN, 2022-10-17 10:11:00 ChriseloisadanyelleTommie [facility] s [facility] HANDICAPPED MEREARD 2022-08-31 14:54:27 [facility] LARGE JOINT 2022-08-31 13:50:53 [facility] Colle ge of INJECTION/ARTHROCENTESIS Medicin e MO ARTHROCENTESIS 2022-07-16 22:10:14 Sherie Becerra [facility]/INJ MAJOR JT/BURSA Medici ne W/O US LARGE JOINT 2022-07-16 16:10:14 [facility] of INJECTION/ARTHROCENTESIS Medicin e AMB REF TO PHYSICAL MED 2022-07-16 16:05:39 [facility] Plan of Care Planned Activity Planned Date Details Comments Source Future Scheduled 2024-01-[address] [facility] Test 00:00:00 [facility] (12+) [code = Tobacco Cessation Counseling and Screening (12+)] Future Scheduled 2023-10-[address] [facility] Test 00:00:00 [facility] r Screening (12+) [code = Tobacco Cessation Counseling and Screening (12+)] Future Scheduled 2023-04-[address] [facility] Test 00:00:00 (Season Ended) [code Medical Center = INFLUENZA VACCINE (Season Ended)] Future Scheduled 2022-11-18 COVID-[address] Test 02:51:19 (#1) [code = Hospital COVID-19 VACCINE (#1)] Future Scheduled 2022-11-18 Screening for [facility] Test 02:51:19 malignant neoplasm Hospital of colon (procedure) [code = 509125419] Future Scheduled 2022-11-18 SHINGLES VACCINES (1 [facility] Test 02:51:19 of 2) [code = Hospital SHINGLES VACCINES (1 of 2)] Future Scheduled 2022-11-18 65+ PNEUMOCOCCAL [facility] Test 02:51:19 VACCINE (1 - PCV) Hospital [code = 65+ PNEUMOCOCCAL VACCINE (1 - PCV)] Future Scheduled 2022-11-18 INFLUENZA VACCINE Method ist Test 02:51:19 [code = INFLUENZA Hospital VACCINE] Future Scheduled 2022-11-05 Screening for [facility]ge Test 13:57:56 malignant neoplasm of Medici ne of colon (procedure) [code = 808454678] Future Scheduled 2022-11-05 COVID-19 Vaccine [facility] Test 13:57:56 (#1) [code = of Medicine COVID-19 Vaccine (#1)] Future Scheduled 2022-11-05 Pneumococcal 65+ (1 [facility] Test 13:57:56 - PCV) [code = of Medicine Pneumococcal 65+ (1 - PCV)] Future Scheduled 2022-11-05 TETANUS SHOT (ADULT) [facility] Test 13:57:56 [code = TETANUS SHOT of Medi cine (ADULT)] Future Scheduled 2022-11-05 Annual Diabetic [facility] Test 13:57:56 Retinopathy of Medicine Screening [code = Annual Diabetic Retinopathy Screening] Future Scheduled 2022-11-05 Hepatitis C [facility] Test 13:57:56 screening of Medicine (procedure) [code = 566535531] Future Scheduled 2022-11-05 ZOSTER VACCINE (1 of [facility] Test 13:57:56 2) [code = ZOSTER of Medicin e VACCINE (1 of 2)] Future Scheduled 2022-11-05 Abdominal aortic [facility] Test 13:57:56 aneurysm screening of Medici ne (procedure) [code = 102216327] Future Scheduled 2022-11-05 Diabetic foot [facility] Test 13:57:56 examination of Medicine (regime/therapy) [code = 368813877] Future Scheduled 2022-11-05 BMI Follow Up Plan [facility] Test 13:57:56 [code = BMI Follow of Medici ne Up Plan] Future Scheduled 2022-11-05 Medicare Awv [facility] Test 13:57:56 (Initial) [code = of Medicin e Medicare Awv (Initial)] Future Scheduled 2022-11-05 Fall Screen [code = [facility] Test 13:57:56 Fall Screen] of Medicine Future Scheduled 2022-08-19 FALLS RISK SCREENING [facility] Test 00:00:00 [code = FALLS RISK Medical C enter SCREENING] Future Scheduled 2022-08-19 FALLS RISK SCREENING [facility] Test 00:00:00 [code = FALLS RISK Medical C enter SCREENING] Future Scheduled 2022-07-24 MRI LUMBAR SPINE WO 1 Occurrences [facility] College Test 10:46:11 CONTRAST [code = starting of Medicine 39493-9] 07/24/2022 until 07/24/2023 Future Scheduled 2022-07-24 Screening for [facility] Test 09:45:57 malignant neoplasm of Medici ne of colon (procedure) [code = 865582088] Future Scheduled 2022-07-24 COVID-19 Vaccine [facility] Test 09:45:57 (#1) [code = of Medicine COVID-19 Vaccine (#1)] Future Scheduled 2022-07-24 Pneumococcal 65+ (1 [facility] Test 09:45:57 - PCV) [code = of Medicine Pneumococcal 65+ (1 - PCV)] Future Scheduled 2022-07-24 TETANUS SHOT (ADULT) [facility] Test 09:45:57 [code = TETANUS SHOT of Medi cine (ADULT)] Future Scheduled 2022-07-24 ANNUAL DIABETIC [facility] Test 09:45:57 RETINOPATHY of Medicine SCREENING [code = ANNUAL DIABETIC RETINOPATHY SCREENING] Future Scheduled 2022-07-24 Hepatitis C [facility] Test 09:45:57 screening of Medicine (procedure) [code = 464295209] Future Scheduled 2022-07-24 ZOSTER VACCINE (1 of [facility] Test 09:45:57 2) [code = ZOSTER of Medicin e VACCINE (1 of 2)] Future Scheduled 2022-07-24 Abdominal aortic [facility] Test 09:45:57 aneurysm screening of Medici ne (procedure) [code = 018937321] Future Scheduled 2022-07-24 Diabetic foot [facility] Test 09:45:57 examination of Medicine (regime/therapy) [code = 927863016] Future Scheduled 2022-07-24 BMI FOLLOW UP PLAN [facility] Test 09:45:57 [code = BMI FOLLOW of Medici ne UP PLAN] Future Scheduled 2022-07-24 MEDICARE AWV [facility] Test 09:45:57 (Initial) [code = of Medicin e MEDICARE AWV (Initial)] Future Scheduled 2022-07-24 FALL SCREEN [code = [facility] Test 09:45:57 FALL SCREEN] of Medicine Future Scheduled 2022-07-16 Screening for [facility] Test 16:15:21 malignant neoplasm of Medici ne of colon (procedure) [code = 253372362] Future Scheduled 2022-07-16 COVID-19 Vaccine [facility] Test 16:15:21 (#1) [code = of Medicine COVID-19 Vaccine (#1)] Future Scheduled 2022-07-16 Pneumococcal 65+ (1 [facility] Test 16:15:21 - PCV) [code = of Medicine Pneumococcal 65+ (1 - PCV)] Future Scheduled 2022-07-16 TETANUS SHOT (ADULT) [facility] Test 16:15:21 [code = TETANUS SHOT of Medi cine (ADULT)] Future Scheduled 2022-07-16 ANNUAL DIABETIC [facility] Test 16:15:21 RETINOPATHY of Medicine SCREENING [code = ANNUAL DIABETIC RETINOPATHY SCREENING] Future Scheduled 2022-07-16 Hepatitis C [facility] Test 16:15:21 screening of Medicine (procedure) [code = 849279317] Future Scheduled 2022-07-16 ZOSTER VACCINE (1 of [facility] Test 16:15:21 2) [code = ZOSTER of Medicin e VACCINE (1 of 2)] Future Scheduled 2022-07-16 Abdominal aortic [facility] Test 16:15:21 aneurysm screening of Medici ne (procedure) [code = 158368085] Future Scheduled 2022-07-16 Diabetic foot [facility] Test 16:15:21 examination of Medicine (regime/therapy) [code = 736881952] Future Scheduled 2022-07-16 BMI FOLLOW UP PLAN [facility] Test 16:15:21 [code = BMI FOLLOW of Medici ne UP PLAN] Future Scheduled 2022-07-16 MEDICARE AWV [facility] Test 16:15:21 (Initial) [code = of Medicin e MEDICARE AWV (Initial)] Future Scheduled 2022-07-16 FALL SCREEN [code = [facility] [place] Test 16:15:21 FALL SCREEN] of Medicine Diagnostic Test 2022-07-16 culture, urine + [facility] Pending 00:00:00 sensitivity [code = Urology culture, urine + sensitivity] Future Scheduled 2022-04-[address] [facility] Test 00:00:00 (#1) [code = Medical Center INFLUENZA VACCINE (#1)] Future Scheduled 2022-01-[address] [facility] Test 00:00:00 WELLNESS (YEAR 2 or Medical Center FIRST YEAR if no IPPE) [code = MEDICARE ANNUAL WELLNESS (YEAR 2 or FIRST YEAR if no IPPE)] Future Scheduled 2022-01-[address] [facility] Test 00:00:00 WELLNESS (YEAR 2 or Medical Center FIRST YEAR if no IPPE) [code = MEDICARE ANNUAL WELLNESS (YEAR 2 or FIRST YEAR if no IPPE)] Future Scheduled 2021-11-16 Screening for [facility] Test 11:22:52 malignant neoplasm of Medici ne of colon (procedure) [code = 516771232] Future Scheduled 2021-11-16 COVID-19 Vaccine (1) [facility] Test 11:22:52 [code = COVID-19 of Medicine Vaccine (1)] Future Scheduled 2021-11-16 TETANUS SHOT (ADULT) [facility] Test 11:22:52 [code = TETANUS SHOT of Medi cine (ADULT)] Future Scheduled 2021-11-16 ANNUAL DIABETIC [facility] Test 11:22:52 RETINOPATHY of Medicine SCREENING [code = ANNUAL DIABETIC RETINOPATHY SCREENING] Future Scheduled 2021-11-16 Hepatitis C [facility] Test 11:22:52 screening of Medicine (procedure) [code = 565777324] Future Scheduled 2021-11-16 ZOSTER VACCINE (1 of [facility] Test 11:22:52 2) [code = ZOSTER of Medicin e VACCINE (1 of 2)] Future Scheduled 2021-11-16 Abdominal aortic [facility] Test 11:22:52 aneurysm screening of Medici ne (procedure) [code = 187960608] Future Scheduled 2021-11-16 Pneumococcal 65+ (1 [facility] 11:22:52 of 1 - PPSV23) [code of Medi cine = Pneumococcal 65+ (1 of 1 - PPSV23)] Future Scheduled 2021-11-16 Diabetic foot [facility] Test 11:22:52 examination of Medicine (regime/therapy) [code = 307618800] Future Scheduled 2021-11-16 BMI FOLLOW UP PLAN [facility] Test 11:22:52 [code = BMI FOLLOW of Medici ne UP PLAN] Future Scheduled 2021-11-16 MEDICARE IPPE [facility] Test 11:22:52 (WELCOME TO of Medicine MEDICARE) [code = MEDICARE IPPE (WELCOME TO MEDICARE)] Future Scheduled 2021-11-16 FALL SCREEN [code = [facility] [employer] [facility] 11:22:52 FALL SCREEN] of Medicine Future Scheduled 2021-11-16 ORT - XR KNEE BILAT Ordered: [facility] [employer] [facility] 11:22:33 4V (CHARGE ONLY) 11/16/2021 of Medicine [code = 64853] Future Scheduled 2021-11-16 ORT - XR HIP RIGHT Ordered: [employer] [employer] Test 11:06:46 2V (CHARGE ONLY) 11/16/2021 of Medicine [code = 84816] Future Scheduled 2021-11-16 ORT - XR PELVIS AP Ordered: [employer] [facility] 11:06:46 (CHARGE ONLY) [code 11/16/2021 of Medic ine = 41262] Future Scheduled 2021-10-19 Screening for [facility] Test 08:56:23 malignant neoplasm of Medici ne of colon (procedure) [code = 208208443] Future Scheduled 2021-10-19 COVID-19 Vaccine (1) [facility] [employer] Test 08:56:23 [code = COVID-19 of Medicine Vaccine (1)] Future Scheduled 2021-10-19 TETANUS SHOT (ADULT) [facility] [employer] Test 08:56:23 [code = TETANUS SHOT of Medi cine (ADULT)] Future Scheduled 2021-10-19 ANNUAL DIABETIC [facility] Test 08:56:23 RETINOPATHY of Medicine SCREENING [code = ANNUAL DIABETIC RETINOPATHY SCREENING] Future Scheduled 2021-10-19 Hepatitis C [facility] Test 08:56:23 screening of Medicine (procedure) [code = 577424041] Future Scheduled 2021-10-19 ZOSTER VACCINE (1 of [facility] [employer] Test 08:56:23 2) [code = ZOSTER of Medicin e VACCINE (1 of 2)] Future Scheduled 2021-10-19 Abdominal aortic [facility] Test 08:56:23 aneurysm screening of Medici ne (procedure) [code = 003267437] Future Scheduled 2021-10-19 Pneumococcal 65+ (1 [facility] [employer] [facility] 08:56:23 of 1 - PPSV23) [code of Medi cine = Pneumococcal 65+ (1 of 1 - PPSV23)] Future Scheduled 2021-10-19 Diabetic foot [facility] [employer] [facility] 08:56:23 examination of Medicine (regime/therapy) [code = 063018024] Future Scheduled 2021-10-19 BMI FOLLOW UP PLAN [employer] Test 08:56:23 [code = BMI FOLLOW of Medici ne UP PLAN] Future Scheduled 2021-10-19 MEDICARE IPPE [facility] [employer] [facility] 08:56:23 (WELCOME TO of Medicine MEDICARE) [code = MEDICARE IPPE (WELCOME TO MEDICARE)] Future Scheduled 2021-10-19 FALL SCREEN [code = [employer] [facility] 08:56:23 FALL SCREEN] of Medicine Future Scheduled 2021-08-10 Screening for [facility] [employer] Test 09:27:06 malignant neoplasm of Medici ne of colon (procedure) [code = 182937916] Future Scheduled 2021-08-10 Pneumococcal 65+ (1 [employer] Test 09:27:06 of 2 - PPSV23) [code of Medi cine = Pneumococcal 65+ (1 of 2 - PPSV23)] Future Scheduled 2021-08-10 COVID-19 Vaccine (1) [facility] [employer] Test 09:27:06 [code = COVID-19 of Medicine Vaccine (1)] Future Scheduled 2021-08-10 TETANUS SHOT (ADULT) [employer] Test 09:27:06 [code = TETANUS SHOT of Medi cine (ADULT)] Future Scheduled 2021-08-10 ANNUAL DIABETIC [facility] [employer] Test 09:27:06 RETINOPATHY of Medicine SCREENING [code = ANNUAL DIABETIC RETINOPATHY SCREENING] Future Scheduled 2021-08-10 Hepatitis C [facility] [employer] Test 09:27:06 screening of Medicine (procedure) [code = 434924935] Future Scheduled 2021-08-10 ZOSTER VACCINE (1 of [employer] Test 09:27:06 2) [code = ZOSTER of Medicin e VACCINE (1 of 2)] Future Scheduled 2021-08-10 Abdominal aortic [facility] [employer] Test 09:27:06 aneurysm screening of Medici ne (procedure) [code = 763417492] Future Scheduled 2021-08-10 Diabetic foot [facility] [employer] Test 09:27:06 examination of Medicine (regime/therapy) [code = 860881085] Future Scheduled 2021-08-10 BMI FOLLOW UP PLAN [facility] [employer] Test 09:27:06 [code = BMI FOLLOW of Medici ne UP PLAN] Future Scheduled 2021-08-10 MEDICARE IPPE [facility] [employer] Test 09:27:06 (WELCOME TO of Medicine MEDICARE) [code = MEDICARE IPPE (WELCOME TO MEDICARE)] Future Scheduled 2021-08-10 FALL SCREEN [code = [employer] 09:27:06 FALL SCREEN] of Medicine Future Scheduled 2021-08-08 Screening for [employer] [facility] 14:21:31 malignant neoplasm of Medici ne of colon (procedure) [code = 038765928] Future Scheduled 2021-08-08 Pneumococcal 65+ (1 [employer] Test 14:21:31 of 2 - PPSV23) [code of Medi cine = Pneumococcal 65+ (1 of 2 - PPSV23)] Future Scheduled 2021-08-08 COVID-19 Vaccine (1) [facility] [employer] Test 14:21:31 [code = COVID-19 of Medicine Vaccine (1)] Future Scheduled 2021-08-08 TETANUS SHOT (ADULT) [facility] Test 14:21:31 [code = TETANUS SHOT of Medi cine (ADULT)] Future Scheduled 2021-08-08 ANNUAL DIABETIC [facility] [employer] Test 14:21:31 RETINOPATHY of Medicine SCREENING [code = ANNUAL DIABETIC RETINOPATHY SCREENING] Future Scheduled 2021-08-08 Hepatitis C [facility] [employer] Test 14:21:31 screening of Medicine (procedure) [code = 843967560] Future Scheduled 2021-08-08 ZOSTER VACCINE (1 of [facility] [employer] Test 14:21:31 2) [code = ZOSTER of Medicin e VACCINE (1 of 2)] Future Scheduled 2021-08-08 Abdominal aortic [facility] [employer] Test 14:21:31 aneurysm screening of Medici ne (procedure) [code = 834632497] Future Scheduled 2021-08-08 Diabetic foot [employer] [facility] 14:21:31 examination of Medicine (regime/therapy) [code = 544973850] Future Scheduled 2021-08-08 BMI FOLLOW UP PLAN [facility] [employer] Test 14:21:31 [code = BMI FOLLOW of Medici ne UP PLAN] Future Scheduled 2021-08-08 MEDICARE IPPE [facility] [employer] Test 14:21:31 (WELCOME TO of Medicine MEDICARE) [code = MEDICARE IPPE (WELCOME TO MEDICARE)] Future Scheduled 2021-08-08 FALL SCREEN [code = [employer] 14:21:31 FALL SCREEN] of Medicine Future Scheduled 2021-08-08 ORT - XR PELVIS AP Ordered: [employer] 14:19:44 (CHARGE ONLY) [code 08/08/2021 of Medic ine = 82095] Future Scheduled 2021-08-08 ORT - XR HIP BILAT Ordered: [employer] Test 14:19:44 2V W AP PELVIS 08/08/2021 of Medicine (CHARGE ONLY) [code = 98037] Future Scheduled 2021-08-03 MRI LUMBAR SPINE WO 1 Occurrences [facility] Test 10:25:12 CONTRAST [code = starting of Medicine 40637-9] 08/03/2021 until 08/03/2022 Future Scheduled 2021-08-03 Screening for [facility] [employer] Test 09:29:33 malignant neoplasm of Medici ne of colon (procedure) [code = 336048210] Future Scheduled 2021-08-03 Pneumococcal 65+ (1 [employer] Test 09:29:33 of 2 - PPSV23) [code of Medi cine = Pneumococcal 65+ (1 of 2 - PPSV23)] Future Scheduled 2021-08-03 COVID-19 Vaccine (1) [facility] Test 09:29:33 [code = COVID-19 of Medicine Vaccine (1)] Future Scheduled 2021-08-03 TETANUS SHOT (ADULT) [facility] Test 09:29:33 [code = TETANUS SHOT of Medi cine (ADULT)] Future Scheduled 2021-08-03 ANNUAL DIABETIC [facility] [employer] Test 09:29:33 RETINOPATHY of Medicine SCREENING [code = ANNUAL DIABETIC RETINOPATHY SCREENING] Future Scheduled 2021-08-03 Hepatitis C [facility] [employer] Test 09:29:33 screening of Medicine (procedure) [code = 753795045] Future Scheduled 2021-08-03 ZOSTER VACCINE (1 of [facility] Test 09:29:33 2) [code = ZOSTER of Medicin e VACCINE (1 of 2)] Future Scheduled 2021-08-03 Abdominal aortic [facility] Test 09:29:33 aneurysm screening of Medici ne (procedure) [code = 253040237] Future Scheduled 2021-08-03 Diabetic foot [facility] [employer] Test 09:29:33 examination of Medicine (regime/therapy) [code = 042249990] Future Scheduled 2021-08-03 BMI FOLLOW UP PLAN [employer] 09:29:33 [code = BMI FOLLOW of Medici ne UP PLAN] Future Scheduled 2021-08-03 MEDICARE IPPE [facility] [employer] Test 09:29:33 (WELCOME TO of Medicine MEDICARE) [code = MEDICARE IPPE (WELCOME TO MEDICARE)] Future Scheduled 2021-08-03 FLU VACCINE > 6 [facility] [employer] Test 09:29:33 MONTHS [code = FLU of Medici ne VACCINE > 6 MONTHS] Future Scheduled 2021-08-03 FALL SCREEN [code = [employer] 09:29:33 FALL SCREEN] of Medicine Future Scheduled 2021-08-01 Screening for [facility] [employer] Test 08:24:04 malignant neoplasm of Medici ne of colon (procedure) [code = 933923538] Future Scheduled 2021-08-01 Pneumococcal 65+ (1 [employer] Test 08:24:04 of 2 - PPSV23) [code of Medi cine = Pneumococcal 65+ (1 of 2 - PPSV23)] Future Scheduled 2021-08-01 COVID-19 Vaccine (1) [employer] 08:24:04 [code = COVID-19 of Medicine Vaccine (1)] Future Scheduled 2021-08-01 TETANUS SHOT (ADULT) [employer] 08:24:04 [code = TETANUS SHOT of Medi cine (ADULT)] Future Scheduled 2021-08-01 ANNUAL DIABETIC [facility] [employer] Test 08:24:04 RETINOPATHY of Medicine SCREENING [code = ANNUAL DIABETIC RETINOPATHY SCREENING] Future Scheduled 2021-08-01 Hepatitis C [facility] [employer] Test 08:24:04 screening of Medicine (procedure) [code = 297308002] Future Scheduled 2021-08-01 ZOSTER VACCINE (1 of [employer] Test 08:24:04 2) [code = ZOSTER of Medicin e VACCINE (1 of 2)] Future Scheduled 2021-08-01 Abdominal aortic [facility] [employer] Test 08:24:04 aneurysm screening of Medici ne (procedure) [code = 201866089] Future Scheduled 2021-08-01 Diabetic foot [facility] [employer] Test 08:24:04 examination of Medicine (regime/therapy) [code = 733865803] Future Scheduled 2021-08-01 BMI FOLLOW UP PLAN [employer] Test 08:24:04 [code = BMI FOLLOW of Medici ne UP PLAN] Future Scheduled 2021-08-01 MEDICARE IPPE [facility] [employer] Test 08:24:04 (WELCOME TO of Medicine MEDICARE) [code = MEDICARE IPPE (WELCOME TO MEDICARE)] Future Scheduled 2021-08-01 FLU VACCINE > 6 [facility] [employer] Test 08:24:04 MONTHS [code = FLU of Medici ne VACCINE > 6 MONTHS] Future Scheduled 2021-08-01 FALL SCREEN [code = [employer] 08:24:04 FALL SCREEN] of Medicine Future Scheduled 2021-07-31 US ARTERIAL LEGS 1 Occurrences [facility] [employer] Test 14:00:46 BILATERAL [code = starting of Medicin e 94699-8] 07/31/2021 until 07/31/2022 Future Scheduled 2021-07-31 EMG NEUROLOGY [code Ordered: [employer] 13:59:03 = NOCPT] 07/31/2021 of Medicine Future Scheduled 2021-07-31 MRI LUMBAR SPINE W 1 Occurrences [employer] Test 13:59:03 WO CONTRAST [code = starting of Medic ine 98202-8] 07/31/2021 until 07/31/2022 Future Scheduled 2021-07-05 Screening for [facility] [employer] [facility] 08:44:47 malignant neoplasm of Medici ne of colon (procedure) [code = 653705132] Future Scheduled 2021-07-05 Pneumococcal 65+ (1 [employer] Test 08:44:47 of 2 - PPSV23) [code of Medi cine = Pneumococcal 65+ (1 of 2 - PPSV23)] Future Scheduled 2021-07-05 COVID-19 Vaccine (1) [employer] Test 08:44:47 [code = COVID-19 of Medicine Vaccine (1)] Future Scheduled 2021-07-05 TETANUS SHOT (ADULT) [employer] Test 08:44:47 [code = TETANUS SHOT of Medi cine (ADULT)] Future Scheduled 2021-07-05 ANNUAL DIABETIC [facility] [employer] Test 08:44:47 RETINOPATHY of Medicine SCREENING [code = ANNUAL DIABETIC RETINOPATHY SCREENING] Future Scheduled 2021-07-05 Hepatitis C [facility] [employer] Test 08:44:47 screening of Medicine (procedure) [code = 369742249] Future Scheduled 2021-07-05 ZOSTER VACCINE (1 of [facility] Test 08:44:47 2) [code = ZOSTER of Medicin e VACCINE (1 of 2)] Future Scheduled 2021-07-05 Abdominal aortic [facility] Test 08:44:47 aneurysm screening of Medici ne (procedure) [code = 483401482] Future Scheduled 2021-07-05 FALL SCREEN [code = [facility] Test 08:44:47 FALL SCREEN] of Medicine Future Scheduled 2021-07-05 Diabetic foot [facility] [employer] Test 08:44:47 examination of Medicine (regime/therapy) [code = 550974151] Future Scheduled 2021-07-05 BMI FOLLOW UP PLAN [facility] Test 08:44:47 [code = BMI FOLLOW of Medici ne UP PLAN] Future Scheduled 2021-07-05 FLU VACCINE > 6 [facility] [employer] Test 08:44:47 MONTHS [code = FLU of Medici ne VACCINE > 6 MONTHS] Future Scheduled 2021-06-26 CTA ABD AORTA AND 1 Occurrences [facility] Test 14:26:38 ILIOFEMORAL RUNOFF starting of Medici ne [code = 84461] 06/26/2021 until 06/26/2022 Future Scheduled 2019-01-[address] [facility] Test 00:00:00 [facility] (procedure) [code = 79279419] Future Scheduled 2019-01-[address] [facility] Test 00:00:00 [facility] (procedure) [code = 56638633] Future Scheduled 2005 SHINGLES VACCINES ([address] [facility] Test 00:00:00 of 2) [code = Medical Center SHINGLES VACCINES (1 of 2)] Future Scheduled 2005 SHINGLES VACCINES ([address] [facility] Test 00:00:00 of 2) [code = Medical Center SHINGLES VACCINES (1 of 2)] Future Scheduled 1974 DTAP/TDAP/TD [facility] Test 00:00:00 VACCINES (1 - Tdap) [facility] Center [code = DTAP/TDAP/TD VACCINES (1 - Tdap)] Future Scheduled 1974 DTAP/TDAP/TD [facility] Test 00:00:00 VACCINES (1 - Tdap) [facility] [code = DTAP/TDAP/TD VACCINES (1 - Tdap)] Future Scheduled [address] [facility] Test 00:00:00 SCREENING [code = Medical Ce nter HEPATITIS C SCREENING] Future Scheduled [address] [facility] Test 00:00:00 SCREENING [code = Medical Ce nter HEPATITIS C SCREENING] Future Scheduled 1965 DIABETIC EYE EXAM [facility] Test 00:00:00 [code = DIABETIC EYE Medical Center EXAM] Future Scheduled [address] [facility] 00[facility] examination [facility] Center (regime/therapy) [code = 247586421] Future Scheduled 1965 Urine screening for [facility] Test 00:00:00 protein (procedure) Medical Center [code = 482724552] Future Scheduled 1965 DIABETIC EYE EXAM [facility] Test 00:00:00 [code = DIABETIC EYE Medical Center EXAM] Future Scheduled [address] [facility] Test 00:00:00 examination Medical Center (regime/therapy) [code = 727468593] Future Scheduled 1965 Urine screening for [facility] Test 00:00:00 protein (procedure) Medical Center [code = 930153852] Future Scheduled 1961 PNEUMOCOCCAL 65+ YRS [facility] Test 00:00:00 (1 - PCV) [code = Medical Ce nter PNEUMOCOCCAL 65+ YRS (1 - PCV)] Future Scheduled 1961 PNEUMOCOCCAL 65+ YRS [facility] Test 00:00:00 (1 - PCV) [code = Medical Ce nter PNEUMOCOCCAL 65+ YRS (1 - PCV)] Future Scheduled 1956-04-13 COVID-[address] [facility] Test 00:00:00 (#1) [code = Medical Center COVID-19 VACCINE (#1)] Future Scheduled 1956-04-13 COVID-[address] [facility] Test 00:00:00 (#1) [code = Medical Center COVID-19 VACCINE (#1)] Future Scheduled [address] [facility] Test 00:00:00 (combo) [code = CT Medical C enter Colonography (combo)] Future Scheduled [address] [facility] Test 00:00:00 malignant neoplasm Medical C enter of colon (procedure) [code = 638697030] Future Scheduled [address] [facility] Test 00:00:00 malignant neoplasm Medical C enter of colon (procedure) [code = 030518783] Future Scheduled [address] [facility] Test 00:00:00 malignant neoplasm Medical C enter of colon (procedure) [code = 540378022] Future Scheduled [address] [facility] Test 00:00:00 malignant neoplasm Medical C enter of colon (procedure) [code = 684846672] Future Scheduled 1955 Sigmoidoscopy [code [facility] Test 00:00:00 = Sigmoidoscopy] [facility] Future Scheduled [address] [facility] Test 00:00:00 (combo) [code = CT Medical C enter Colonography (combo)] Future Scheduled [address] [facility] Test 00:00:00 malignant neoplasm Medical C enter of colon (procedure) [code = 352459037] Future Scheduled [address] [facility] Test 00:00:00 malignant neoplasm Medical C enter of colon (procedure) [code = 604454869] Future Scheduled [address] [facility] Test 00:00:00 malignant neoplasm Medical C enter of colon (procedure) [code = 150274586] Future Scheduled [address] [facility] Test 00:00:00 malignant neoplasm Medical C enter of colon (procedure) [code = 015189288] Future Scheduled 1955 Sigmoidoscopy [code [facility] Test 00:00:00 = Sigmoidoscopy] [facility] Future Scheduled COLON CANCER [facility] [employer] Test SCREENING: of Medicine COLONOSCOPY [code = COLON CANCER SCREENING: COLONOSCOPY] Future Scheduled TETANUS SHOT (ADULT) [facility] Test [code = TETANUS SHOT of Medi cine (ADULT)] Future Scheduled ANNUAL DIABETIC [facility] Test RETINOPATHY of Medicine SCREENING [code = ANNUAL DIABETIC RETINOPATHY SCREENING] Future Scheduled HEPATITIS C [facility] [employer] Test SCREENING [code = of Medicin e HEPATITIS C SCREENING] Future Scheduled HIV SCREENING [code [employer] Test = HIV SCREENING] of Medicine Future Scheduled ZOSTER VACCINE (1 of [employer] Test 2) [code = ZOSTER of Medicin e VACCINE (1 of 2)] Future Scheduled FLU VACCINE > 6 [facility] Test MONTHS [code = FLU of Medici ne VACCINE > 6 MONTHS] Future Scheduled Diabetic foot [facility] [employer] [facility] Test examination of Medicine (regime/therapy) [code = 092624463] Future Scheduled BMI FOLLOW UP PLAN [employer] Test [code = BMI FOLLOW of Medici ne UP PLAN] Future Scheduled COLON CANCER [facility] [employer] Test SCREENING: of Medicine COLONOSCOPY [code = COLON CANCER SCREENING: COLONOSCOPY] Future Scheduled TETANUS SHOT (ADULT) [employer] Test [code = TETANUS SHOT of Medi cine (ADULT)] Future Scheduled ANNUAL DIABETIC [facility] Test RETINOPATHY of Medicine SCREENING [code = ANNUAL DIABETIC RETINOPATHY SCREENING] Future Scheduled HEPATITIS C [facility] [employer] Test SCREENING [code = of Medicin e HEPATITIS C SCREENING] Future Scheduled HIV SCREENING [code [employer] [facility] = HIV SCREENING] of Medicine Future Scheduled FLU VACCINE > 6 [facility] C [facility] Test MONTHS [code = FLU of Medici ne VACCINE > 6 MONTHS] Future Scheduled Diabetic foot [facility] [employer] Test examination of Medicine (regime/therapy) [code = 012129963] Future Scheduled BMI FOLLOW UP PLAN [employer] Test [code = BMI FOLLOW of Medici ne UP PLAN] Future Scheduled COLON CANCER [facility] J [employer] Test SCREENING: of Medicine COLONOSCOPY [code = COLON CANCER SCREENING: COLONOSCOPY] Future Scheduled TETANUS SHOT (ADULT) [employer] Test [code = TETANUS SHOT of Medi cine (ADULT)] Future Scheduled ANNUAL DIABETIC [facility] [employer] Test RETINOPATHY of Medicine SCREENING [code = ANNUAL DIABETIC RETINOPATHY SCREENING] Future Scheduled HEPATITIS C [facility] [employer] Test SCREENING [code = of Medicin e HEPATITIS C SCREENING] Future Scheduled HIV SCREENING [code [employer] [facility] = HIV SCREENING] of Medicine Future Scheduled FLU VACCINE > 6 [facility] C [facility]lege Test MONTHS [code = FLU of Medici ne VACCINE > 6 MONTHS] Future Scheduled Diabetic foot [facility] Test examination of Medicine (regime/therapy) [code = 941037282] Future Scheduled BMI FOLLOW UP PLAN [employer] Test [code = BMI FOLLOW of Medici ne UP PLAN] Future Scheduled US ARTERIAL LEG 1 Occurrences [facility] [employer] Test RIGHT [code = 10564] starting of Medi cine 11/26/2019 until 11/25/2020 Future Scheduled XR FOOT RIGHT 1 Occurrences [facility] llege Test (COMPLETE) [code = [place] [address]-3] 11/26/2019 until 06/27/2020 Future Scheduled XR FOOT BILATERAL 1 Occurrences [facility] Test (COMPLETE) [code = [place] [address]-8] 11/26/2019 until 06/27/2020 Future Appointment 2023-10-11 James Hidalgo, [address] 00:00:00 [place] [address]; , [place] [address] Encounters Start End Encounter Admission Attending Care Care Encounter Source Date/Time Date/Time Type Type Clinicians Facility Department ID 2023-01-16 2023-01-16 [facility] [id number] [facility] 06:21:00 18:35:00 [facility] 2023-01-16 2023-01-16 [facility] [id number] [id number] 06:21:00 18:35:00 Encounter [facility] 2023-01-16 2023-01-16 Surgery [facility] [id number] 07:30:00 10:00:00 [facility] 2023-01-16 2023-01-16 Anesthesia [facility] [id number] 07:29:00 09:51:00 Event [facility] 2023-01-16 2023-01-16 Travel [facility] [id number] [facility] 00:[facility]00 [facility] 2023-01-07 2023-01-07 [facility] [id number] [id number] 11:30:00 11:30:00 Encounter [facility] 2023-01-07 2023-01-07 Outpatient [facility] [id number] SLE 00:00:00 00:00:00 2023-01-07 2023-01-07 Travel [facility] [id number] [facility] 00:[facility] 00:00:00 [facility] 2022-12-10 2022-12-10 Outpatient MARTINEZ [facility] [id number] [facility] 09:43:47 12:54:07 MICHAEL [facility] [employer] 2022-12-10 2022-12-10 Outpatient [facility] [id number] [facility] 10:05:47 10:05:47 [facility] [employer] 2022-11-01 2022-11-01 Office NOHEMY Henriquez [id number] [facility] 11:00:00 13:05:37 Visit Michael AMBULATOR 350.1.13.21 College Y 0.2.7.2.686 of [id number] Medi yasmine 600 e 2022-10-17 2022-10-18 [facility] [place] [id number] 20 [id number] [facility] 09:04:00 11:55:00 Encounter [facility] 2022-10-17 2022-10-18 Outpatient [facility] Surgery [id number] [facility] 09:04:00 11:55:00 MICHAEL 2022-10-17 2022-10-18 [facility] [id number] [facility] 09:04:00 11:55:00 Encounter [facility] 2022-10-17 2022-10-17 Surgery [facility] [id number] [facility] 15:10:00 17:33:00 Michael [facility] 2022-10-17 2022-10-17 Surgery [facility] [id number] 15:10:00 17:33:00 [facility] 2022-10-17 2022-10-17 Anesthesia Ranjit Carney [facility] [id number] [facility] 12:54:00 15:05:00 Event Home Connelly [facility] 2022-10-17 2022-10-17 Anesthesia Ranjit Carney [facility] [id number] [facility] 12:54:00 15:05:00 Home Fregoso [facility] 2022-10-17 2022-10-17 Travel [facility] [id number] [facility] 00:00:00 00:00:00 [facility] 2022-10-17 2022-10-17 Travel [facility] [id number] [facility] 00:[facility]00 00:00:00 [facility] 2022-10-11 2022-10-11 Outpatient Goldfarb_D [facility] [address] [place] 00:00:00 00:00:00 [id number] [facility] 2022-10-11 2022-10-11 [facility] [place] - [id number] Paulino boyce 00:00:00 00:00:00 GersonEarl Roca y MD: [id number] [facility] [place] [address], [place] [address] , Ph. 2022-09-27 2022-09-27 Outpatient [facility] [id number] [facility] 00:00:00 00:00:00 2022-09-27 2022-09-27 Travel [facility] [id number] [facility] 00:[facility] 00:00:00 [facility] 2022-09-27 2022-09-27 Travel [facility] [id number] [facility] 00:[facility]00 00:00:00 [facility] 2022-09-15 2022-09-15 Outpatient Goldfarb_D [facility] [place] 00:00:00 00:00:00 [id number] [facility] 2022-09-06 2022-09-06 Outpatient Goldfarb_D [facility] [address] [place] 00:00:00 00:00:00 [id number] [facility] 2022-09-06 2022-09-06 Outpatient Goldfarb_D [facility] [address] [place] 00:00:00 00:00:00 [id number] [facility] 2022-08-31 2022-08-31 Outpatient PAILY, WALI [facility] [id number] [facility] 13:48:29 15:49:17 [facility] 2022-08-31 2022-08-31 Outpatient [facility] [id number] [facility] 13:53:01 13:53:01 [facility] 2022-08-21 2022-08-21 Outpatient [facility] [id number] [facility] 14:01:01 14:01:01 [facility] 2022-08-02 2022-08-02 Outpatient Goldfarb_D [facility] [address] [place] 00:00:00 00:00:00 [id number] [facility] 2022-07-24 2022-07-24 Office WALI [facility] [id number] [facility] 09:41:01 09:41:01 Visit AMBULATOR 350.1.13.21 College Y 0.2.7.2.686 of [id number] Medi yasmine 800 e 2022-07-23 2022-07-23 Outpatient Goldfarb_D [facility] [address] [place] 00:00:00 00:00:00 [id number] [facility] 2022-07-16 2022-07-16 Office MARTINEZ JESSICAJanice [id number] [facility] 15:01:55 16:33:42 Visit MICHAEL AMBULATOR 350.1.13.21 College Y 0.2.7.2.686 of [id number] Medi yasmine 600 e 2022-07-16 2022-07-16 Outpatient [facility] [id number] [facility] 15:31:06 15:31:06 [facility] [employer] [facility] 2022-07-16 2022-07-16 Outpatient [facility] [id number] [facility] 15:31:05 15:31:05 [facility] 2022-07-16 2022-07-16 Outpatient Goldfarb_D [facility] [address] [place] 00:00:00 00:00:00 [id number] [facility] 2022-07-16 2022-07-16 [facility] [place] - [id number] [facility] 00:00:00 00:00:00 Gerson Earl Garrido y : [address], [place] [address] , Ph. 2022-05-22 2022-05-22 Outpatient Goldfarb_D [facility] [address] [place] 00:00:00 00:00:00 [address] [facility] 2022-05-22 2022-05-22 [facility] [place] - [id number] [facility] 00:00:00 00:00:00 Gerson Mata Earl Beverly y : [address] [facility] [address], [place] [address] , Ph. 2022-05-15 2022-05-15 Outpatient Goldfarb_D [facility] [address] [place] 00:00:00 00:00:00 [id number] [facility] 2021-11-16 2021-11-16 Office NOHEMY Henriquez 1.2.840.114 [id number] [facility] 10:20:00 12:19:01 Visit Michael AMBULATOR 350.1.13.21 College Y 0.2.7.2.686 of [id number] Medi yasmine 600 e 2021-11-16 2021-11-16 Outpatient [facility] [id number] [facility] 11:23:07 11:23:07 [employer] e [employer] Medicin e 2021-11-16 2021-11-16 Outpatient [facility] [id number] [facility] 11:07:24 11:07:24 [employer] 2021-10-19 2021-10-19 Office JESSICA Henriquez 1.2.840.114 [id number] [facility] 08:30:00 09:33:30 Visit Michael AMBULATOR 350.1.13.21 College Y 0.2.7.2.686 of [id number] Medi yasmine 600 e 2021-10-04 2021-10-06 Inpatient EL MARTINEZ [facility] Surgery 3 [id number] [facility] 10:53:00 12:20:00 MICHAEL 2021-09-26 2021-09-26 [facility] [id number] [facility] 00:00:00 00:00:00 2021-09-25 2021-09-25 Outpatient EL SLE SLE [id number] SLE 17:34:11 23:59:00 2021-08-10 2021-08-10 Office NOHEMY HENRIQUEZ 1.2.840.114 [id number] [facility] 08:53:33 10:21:21 Visit MICHAEL AMBULATOR 350.1.13.21 College Y 0.2.7.2.686 of [id number] [facility] yasmine 600 e 2021-08-08 2021-08-08 Office NOHEMY BECERRA [id number] [facility] 14:09:43 15:43:53 Visit SHERIE AMBULATOR 350.1.13.21 College Y 0.2.7.2.686 of [id number] [facility] yasmine 600 e 2021-08-08 2021-08-08 Outpatient [facility] [id number] [facility] 14:27:15 14:27:15 [employer]in [employer] 2021-08-03 2021-08-03 Office NOHEMY BRYANT 1.2.840.114 [id number] [facility] 09:10:43 16:27:08 Visit ZACHARY AMBULATOR 350.1.13.21 College Y 0.2.7.2.686 of [id number] [facility] yasmine 805 e 2021-07-31 2021-07-31 Office NOHEMY Castillo 1.2.840.114 [id number] [facility] 13:00:00 15:39:06 Visit Jaun AMBULATOR 350.1.13.21 College Matt Y 0.2.7.2.686 of [id number] [facility] yasmine 825 e 2021-07-03 2021-07-03 Outpatient EL LETICIA, [facility] [id number] SLE 10:23:38 23:59:00 NAEL 2021-06-26 2021-06-26 Office NOHEMY CASTILLO 1.2.840.114 [id number] [facility] 13:08:39 14:38:47 Visit JAUN AMBULATOR 350.1.13.21 College Y 0.2.7.2.686 of [id number] [facility] 825 e 2021-06-26 2021-06-26 Outpatient [facility] [id number] [facility] 10:43:10 13:17:31 [employer]in [employer] 2020-02-15 2020-02-15 Office Jonathan ONHEMY 1.2.840.114 [id number] [facility] 13:12:09 16:03:02 Visit Jaun AMBULATOR 350.1.13.21 College Matt Y 0.2.7.2.686 of [id number] [facility] 825 e 2020-02-15 2020-02-15 Office NOHEMY Boswell 1.2.840.114 [id number] [facility] 13:10:49 16:02:55 Visit Arian Ramirez AMBULATOR 350.1.13.21 College Y 0.2.7.2.686 of [id number] [facility] 825 e 2020-02-15 2020-02-15 Outpatient LEPRAMESH, [facility] [id number] [facility] 00:00:00 00:00:00 [facility] 2020-02-15 2020-02-15 Outpatient EL ELBERT, [facility] [id number] [facility] 00:00:00 00:00:00 [facility] 2019-11-26 2019-11-26 Office JESSICA Boswell 1.2.840.114 [id number] [facility] 09:16:07 11:12:08 Visit Arian Ramirez AMBULATOR 350.1.13.21 College Y 0.2.7.2.686 of [id number] [facility] 825 e 2019-11-26 2019-11-26 Outpatient [facility]H [facility] [id number] [facility] 00:00:00 00:00:00 [id number] 2018-07-22 2018-07-22 Outpatient GORDON CASTILLO, [facility] [id number] [facility] 00:00:00 00:00:00 JAUN 2018-07-22 2018-07-22 Outpatient [facility] [id number] [facility] 00:00:00 00:00:00 [id number] Results Test Description Test Time Test Comments Results Result Comments Source POC-Glucose meter 2023-01-16 17:15:01 Test Item Value Reference Range Interpretation Comme nts POC-Glucose Meter (test code = 313 mg/dL 70-110 H : [facility] [address]) [place] [id number]: Inspector Crystal/Techni jordan ID = [id number] for TavonPat ca Lab Interpretation (test code = Abnormal 34757-4) [facility] [id number] 17:15:01 Test Item Value Reference Range Interpretation Comments POC-GLUCOSE METER 313 mg/dL 70-110 H : TESTED A T [facility] [address] (BEAKER) (test code [address] DG A, = 1538) [place] [address] 0: Inspector Crystal/Techni jordan ID = [id number] for Liseth Nix POCT-GLUCOSE [id number] 11:49:59 Test Item Value Reference Range Interpretation Comments POC-GLUCOSE METER 258 mg/dL 70-110 H : [facility] ([facility]ER[facility] (test code [place] E BLDG A, = 1538) [place] [address] 0: Inspector Crystal/Techni jordan ID = [id number] for Valentin bassett Alise RAD, PELVIS, 1 OR 2 [id number] 10:57:00Low AP pelvis showing the entire prosthesis on a single viewReason for exam:->Postop EvalShould this be performed at the bedside?->Yes [facility] 1955 Sex: MFINAL REPORT EXAMINATION: RAD, PELVIS, 1 OR 2 VIEWS INDICATION: Postop eval COMPARISON: Pelvis radiographs 10/04/2021 DISCUSSION:The osseous structures are partially obscured by stool and overlying bowel gas. Status post left total hip arthroplasty without evidence of acute hardware failure. Associated postsurgical changes in the surrounding soft tissues.Prior right total hip arthroplasty without evidence of hardware loosening or failure.No fracture or acute osseous abnormality.Partially visualized bilateral vascular stents with surgical clips in the inguinal soft tissues. Scatteredvascular calcifications. IMPRESSION:Status post left total hip arthroplasty without evidence of acute hardware complication. Associated postsurgical changes in the surrounding soft tissues. Signed: Timmy Mason MDReport Verified Date/Time: 01/16/2023 10:57:53 POCT-GLUCOSE [id number] 10:06:06 Test Item Value Reference Range Interpretation Comments POC-GLUCOSE METER 262 mg/dL 70-110 H : TESTED A T [facility] 7200 (BEAKER) (test code CAM[place] E BLDG A, = 1538) [place] [address] 0: Inspector Crystal/Techni jordan ID = [id number] for ALLEY DOW POCT-GLUCOSE [id number] 07:24:05 Test Item Value Reference Range Interpretation Comments POC-GLUCOSE METER 267 mg/dL 70-110 H : TESTED A T [facility] [address] (BEAKER) (test code [place] E BLDG A, = 1538) [place] [address] 0: Inspector Crystal/Techni jordan ID = [id number] for LISY FULTON Tissue [id number] 18:54:10 Test Item Value Reference Range Interpretation Comments Case Report (test code Surgical Pathology = 104) Report Case: [id number] Authorizing Provider: Michael Henriquez Collected: 10/17/2022 01:26 PM MD Naveen Ordering Location: [facility] OR Received: 10/18/2022 08:19 AM Perioperative Services Pathologist: Dany Durham MD Specimen: Condyle,Right Knee DIAGNOSIS (test code = e2lluGZxJWKdv0woCHHxoS 3220) FuZzEwMzNcZnRuYmpcdWMx IHtccnRmMVxlcGljOTYwMl ovmtWrCPJkaRKdE5Ywqhhc EMtjTT1vPE0yxCemeZIssU HxXWXuNwNrj0sbm865iBJn g5acLWCWejbxjPy9mNgpV6 4ll6Q0LovdX46feNXgUDR7 FLBcGAVnhXTtGXFsLFN7NS LemVEwS3zwKMSwMZ5mgggb YEgxVZpzLQQgfMH1WKNfcD EwN1XuMBIwXWjgYOIozcr9 EyUkQu8epEMivUfmPSwiGS HfTKWpQVuyKYXaXqHuTf1B EAmuQolBETIiP78KQVIOW2 5EWUxFLCAgQVJUSFJPUExB X2DULCOpzeCxWQ2iLF2PVT VPQVJUSFJJVElTIFxwYXJ9 h8inoKMpTRYtcOMgDOEgIC xhbnNpXGRlZmxhbmcxMDMz DFY2mmJpMJWoHXydQQCkJF huTz1vxWAfrJddXkWqKIIz f9tasfLLmogjvXt9x2uaHC CeTeD5kYNxMRseB1uuceVy oLQtZURaYNz6nP48OZMvvW 2bnNStFAnpubXiWvD8TJpl OKPnTdP0KVMobAQrNNEqB7 xyZWQwXGdyZWVuMFxibHVl VJU1xUama5U8jXDdvMHbmK dhYyJqBwYoMjAEc5PhQHu2 dSmxB7CvHPEoPeR0jAPcTO AhEDaiVOJyJETcowL3zX68 BEdbxpF4zJUeu0Aad39vd0 36wK2ewHXhNPJ7MZSmLJRj sUYkUACwQQK8ZBZqvJSpT7 uwGJSaHF4iuqgsFKxpCRjj MEWncAE9FSSvrMFxY0WnXM AxWWrtIARjrzl9CdIdUg6c fEOehSygECkzc7tpq9xtjM JrAcf9CMRlLyLmXqamTSrc r8Gfu5tsUKDgjn7xHWQ2mO LiwLycf3J9yVPrCUJheNQg SBEqPJ3fgTYxIIHcdY3umt xjXHBnYnJkcmhlYWRccGdi dgBeQk2rnUvvJJO3VDrrE4 ediF9aRfD4YEjuB3sgtH6f SNv1PEdfQBFktXO4dyB5EQ QbiHKgA6BubP4rBGEyNN5u iyg7s2yzTZA4ZZiwBMSyNx P7lkO4GJUiqEKsHWYvbWvz VMvbh038LAR5ObBuGNUfd0 CiG3NlnKnfV34oxOrqD22f XUCelOwrnC2bjIzhwQ6vIs MxQbOrTUludZzwUK1gRDEo I1kjnOXgQKLjWOJuT6rtNr AinB3acLpjYHemtfWjUFTw Exh9DOCjjNJjOYYbCcy2KA GfVWHcO14xextdLWO7vC9b w0bhx4HeJMirUDY9LDNot3 1wWPetgjP8TCbzAt48WYyq JAG7ZZioNMR4aA== CPT Code(s) (test code z6faaMJjGGYvaVN9TgRqIN = 3357) Bwg1mby2AymRBxnSZiPFkr mFAxdhWxkp14wJB1kN24MO 2rQOSlSiF0GPLylhZ2Jyp0 JIApSPEkwURbO591e8ixy1 cygwNbtRK5rOepAOMzgere RqI5QLabDLOhkucvHLc7QY dxLBKlkGM1HXEegSEeK2Cf FDNsPL6qccs8SZR3THzjSU TkZjY1VLVdxOBpYUJqoZgq SHfau372PBG0DjWaPCBnit VicGceaG3gTmQeBLR6NFLy NSwgODgzMTFccGFyfQ== CLINICAL HISTORY (test b7iojOXuPXUjtPV9RwXhTM code = 3356) Egw6lpr8WvdYAesPJyHLty pKEggiVzvf13kJJ0dU75WA 4lDQQePrF8RKVobxQ0Acv0 XNWoXVRdlKNeU152n3mly6 vgoyIyaXK7AZUbPNAtD0An YY0iAXWquZVyB90gvSSbUS G8CCQwYITdwNZwPARzVFT1 MXFdrJMzR7ypFHWqUL1qzf hpXVvlOBfzGXCarYQ2ODJu vQMnT1QeLNGpFChaEQWwcf m6MvUbTu2ffANtbVmoIPdi YXJkXHJpMVxwbGFpblxmcz IvIRQzIXDEx9Clt5BibOxp aXRpcyBvZiByaWdodCBrbm VlXHBhcn0= SPECIMEN SOURCE (test h3qjyOShSECpcRI1AcYlDA code = 3377) Rhb3cih2NylYGgpRGiUYhn uZLxwcKjcb06pWR1iX70JN 5jYFOeKfZ3FFUnjwI8Cby6 OAIpWOAhcYPcC498g8pth3 kaqeLanHX9xQrgOZTkuyef QkY1DTggCTGetfvzBSr9NI rsFGNunSJ0KOEkmHKoM5Nf FYBeMF6udsj0PXC3OGwbEA JnQlI5SEAghKUwSYJffAcd DGywz600DJJ7UoAuXHJohu VbqJhecA0tGoZsKQGPzKte dCBrbmVlXHBhcn0= GROSS DESCRIPTION (test k6hmfQHhNMYpnNWTZNYtB4 code = 8385765860) gpptYlJRDxwUPkS7Vvjnfi BKqrNQ3dCZ7sbIlevBOneW XzNN8UWSOoVeIlPURdnCYb klQxMyZmVCQyhHPjuLY2BF YzUU4oqqozBOycOEgwXRFl ydQ4XGOvrLSmB9UbYYGaAB 1lmacaCTL1HTmovW6fxeFU ChbcIm0sxAJhhQxjUnUuSg NoYXJzZXQwXGZuaWwgQXJp VDk2jD4NVoniDAA9LZYDDi gaYCVtYU1Zt8mkJQKnyRQw LMS7XYlaiKWjOLYmITZkTR i4FQZsUUdavWWcUE9lzKaj DvvsuQjtl4VinDAwLXewHC WfGDMgDEyoEXMeQG8DXsCf IHx7JzRuVnZlCNs8AFs9GR 7RQdZzAWVpFxo1FDx7BLZl MZb7YOmvAX9BDZU9SbLeBY T4BHM3HPr3LcQoQRVkStKp XGYgQXJpYWwgXFxmbCBcXG 7wnQiyeGZgluHTYtLGa82i yDlfRGPuQ7l3VQsuPYOqHD BhciANClxlcGljTmVzdERv YzEgDQpcbHRycGFyXGxpbj BccmluMCANClxsdHJjaFxm lhLmWBPxB8GiwpHiXApeSW Olpf3cuVfvLHblVbYwFGFi dGhlIHBhdGllbnQncyBuYW 9jKGZrO8Rbw6Edw29legPx LkOzGQXxMMHgM45gFQskYW yamsoawFZuz59nEOBqUOXz NY22bYLdpPzvRMEdaz60ES gtf3rjwNTdTpCjwNepqQTe ELJmqoCjAcHnS48qyuChAY CzZDXwkvIlS7SqZyHqgOOh JqQyBW10OAGsYJgbVOfaJY U3YKD7GDXsaUPye2keya1i YVVeLNAnlsVqA3KoLPIby9 YvZhXmHIWcqgJhaA7mlRcg nF0uOepyISk9XCrwAF89pV JmNKXozCRgnWD3cuNjZZNd TXXhHS0nFYUmgCHwKDUwt3 9pfzQjZ9fbPrLeuf4pBMDa OX3pAnFzY11hlB6qX0QnNP Xxh4KbWLhyNQ2kjP5cVFBf bmQgbXVsdGlwbGUgcGVyaX ZzTGYedGAas8Woo7UpzMJe ba0bHLIkAWLafPCry1XpNj VpORRxtzF9FQ9kiAKdgK07 LZU1roBtICX0xMA8HQRbID 8tNMKtjz0zYJNMPVBcPHBe sjBhcOa7CAWtULZ3eT5ady OzcwKcf6ZvmHp6aHVmWMzu SFFlLAEwARIycNwjg0csHf QbAAKeoYBrBklvNWHxd13b XHBhciANClxwYXIgDQpQaW qfptIKrvi1RYlsBILeWFNU LCBIVCAoQVNDUCkNClxwbG FpblxlcGljTmVzdERvYzBc nDazpY38SJZsmQPuIMB1OH 2rTHCkeiazDJYpHQMgWUK9 BLtpyC74iVGqLOOeZHZnxO TphV4JMCSxSHV8QFgmaD82 yNTjMY6KDIJwYRL6OVEbnN CmTRO1GM3jgM7EsF== MICROSCOPIC DESCRIPTION b3zufMLgDANlqHV9ZzPoWI (test code = 3371) Qfx7fae6PorCJdjHRyQElp lQVezvCuqe65mAP7dS89KX 5cHBLiCrP6HCXxjrL2Rim3 VHSkEWCfcFJtB181k8owv9 abakBibBU7oOarCVKvzmgr SbR6WHacTCLgteqbUQu0XZ wwRZRetCW1VEXhiZLkN4Ul KUUaXS0tman9YHX2VPopWN PtZlA6BWQusRHqGOUotFlh XPhwy782DTW6NrSkLYCjku ArbPjhvD1fFtWxMCPISUXv c3UkDUWsoUMrjB== Gross assessment was [facility] performed at ([facility], = 2777) Department of Pathology, [address] [place] [address] 20[address], Technical component was [facility] performed at ([facility], = 8337) Department of Pathology, [address] [place] [address] 8[address], Professional component [facility] was performed at ([facility], code = 2777) Department of Pathology, [address] [place] [address], [facility] [id number] 18:54:10 Test Item Value Reference Range Interpretation Comments Case Report (test code Surgical Pathology = 104) Report Case: [id number] Authorizing Provider: Michael Henriquez Collected: 10/17/2022 01:26 PM MD Naveen Ordering Location: [facility] OR Received: 10/18/2022 08:19 AM Perioperative Services Pathologist: Dany Durham MD Specimen: Condyle,Right Knee DIAGNOSIS (test code = u3jotQZoHURfp0qrHVVsoQ 3220) FuZzEwMzNcZnRuYmpcdWMx IHtccnRmMVxlcGljOTYwMl mgvxFvQTTjrLKuP5Hhqzoq HFtsNC7qTF5qgWyzlYLheU AzJLYbFvHyz1rnq452oZVi t6lbGMWMmcabmXh1qLexH8 5iu5P1DcprD38ahPFfDRD7 FITlPHUvtQQxUTZlOJC1CW FvuXVqE6uyDIWgTJ7avnqe SJriEKsuJHBjcAB8HHYziP FzK7PsSWKzONatHLFrtoy9 VtLvHi9yuJTylZjzNEyoPS BsOSPaYMkdNFVvYkIdKa5R BSmaNgjBKVRkF69XWUAUZ6 5EWUxFLCAgQVJUSFJPUExB X6LXNBEvueFfJL6lQZ5VJD VPQVJUSFJJVElTIFxwYXJ9 j2njgBRsCZXcjMMkRUKhSK xhbnNpXGRlZmxhbmcxMDMz SUQ6iqZuOUZoELbhLEUzTH skPc3zcZJxtBzgUoFgEEFs x6libkUWwmiacYu8k0gqUZ YqSrW0iFCzCJbkE2fapwWt mPMjLMWcECu3tK25OUGlmP 2mtYFeIFfztvKpSbT0WAfj ZBGoXpA2BFLwsZPxVLFrI5 xyZWQwXGdyZWVuMFxibHVl YUW8eGnvx4I9aWNxqWOkfO rzYaQaUaSgUzTUj3YyMHz7 pBjoY4JqATNiQyF3nORvQO JhTWugBMGtXSVjnbR6rE82 OXczzrU8gEDov1Qjb39yv2 36uN0axVBvXCU5LAKpFIIk sFJlGWCyIWR2GHXjgGTrD0 tmKPZiZA7ybincKBleRZoe ILWqzEG3JGCplUIhI9VmXM RuAOcwZSBaijd6OvIrMl7r cWRvdKtoYMsst4ort1hptM UoCzi6JRNeHvHkNnuuDHen f0Gog0pcDUDbez1rZJZ0hG DkbMjhs5N8rXOsCUIckJUq BEAeZR3vxWZzWZEnaK7msm xjXHBnYnJkcmhlYWRccGdi puDqYc9clSkrPOB1IOsjZ9 utyE9sYsD6QHvtQ0cicP9f EKt0OMevNCKhuXR6jeV0RS UkwJLcC8WbaY0mFIWkWB9j xnw7i3wsLON4GNwxXLYuWm O7baZ4RXAnkBUbSQMgdKqb AEjsi641NUD3XhDhTEHam6 AsF7RfnIamT58gtTtdT76s UBZrcMllsB9iwMskfK4pBz SoDhOpVDsdhKxdKL9nRTTv J1qzwUDaSZGkGCViD7gwJe HkzE0gqDooUZjhjvOnASWp Ysx9IXIiyFZwHDKxWwt8YO BuYXUeI63btiulFFJ3sW6x j6wgk5BfGSaaQOT0OKUrk9 9vJHiuhyZ5MXmxDi21OBwb MNW1WOzxXBN5uR== CPT Code(s) (test code a3dzjKRoMTQtcXJ8AkQlMR = 3357) Uaz4wqa5XhpGZwqOXfFBwa bZMonrXiba96sNR1tV78NJ 5wOFLwWfZ1CLFekqI4Ejm9 WEHpFGVzcIYgS141j4icn9 azeyZeeDQ4vJyxHTIumuzc BfT4KHdrPREdyrbcWFf9PD zxMEJcmDH6KGPokLYgJ0Bt SZVyMB2lgsf1UJF7CYljHG HvPrQ3UHMxxBHuRILeqEii NPwpp632OPT2VtLiNHDwex NmkAjbrY7kNdScJSE0WUCn NSwgODgzMTFccGFyfQ== CLINICAL HISTORY (test t3ywnFXrWYHpfYM8IwVsSW code = 3358) Pql5hsa2CqcEAqtEMjACex wKZiciFchk67kCE4kR18DD 8hWGAqWjI8KJHfosN0Ojq6 PNWwRGWsiCMkW494n7wak7 sqpbZwyIA4QNCsWLXyW9Fr TR1gERKpbBDvB79drSSgJG B2BDXmPRUiqFIdEFCfGXH2 NQImkIYpS6auNYLvDL2raf ygSUleZKmeFLBebGP8XZGs yASbJ5ZlWBEgYVkhBOBnfx a0VhVoNm2apPMhoHklGUse YXJkXHJpMVxwbGFpblxmcz PjKWCbQGQCr3Mzn7QkbHsk aXRpcyBvZiByaWdodCBrbm VlXHBhcn0= SPECIMEN SOURCE (test l1lnsKYdNLTryOF5PhBuTG code = 3377) Ted9guq0GfqIDnjBVwVZeh eWFxgaBgev47sNU4dA11IW 3bRXFhVdA0WNHbrrJ1Yea7 RWKkQVPutEZjS911i6mld6 ohymEpqJU3qWpiPCVviinl OvL6WXhkSHEhakvfWNh6BB aeJFMxeZI8CFGmlLJiN4Jb JZUwBV3gxqt7DTW4YQoxQP IkAcZ7DLHalQEbPHZlxHiv YHved074QIN9ZgIgBNJrey PuhRmpoX6sDuCkJWNMnGgq dCBrbmVlXHBhcn0= GROSS DESCRIPTION (test x1iqlMUcFSKzeHJNYOArT8 code = [id number]) xnruXhGMMrrRXeK7Rnawxh NFqsUB8pRP5ygSwaqTCukS DkCE0JORNlUrHlVAVffDDr ctVmGnIbARTzdZBwbKD0ZB QyAO7ovckqXEhrYHueKDLb jgL3VCSfxRZlF7RkPAOrSC 0qkbssKRL2CAqdrR2sghFH ZkzeCf3qoRZkbManPxQqAf NoYXJzZXQwXGZuaWwgQXJp QTj8cM7IWtphUOS1HRFJZu dvRCJnRE3Qo9lsKGItuZVs KDG2CSstzYCmXXJlNRTjPG w6NKWdONmoaLQzFQ6zkQaj YsezsLmrm2AdmFVpHVmtRG NbMKAmAXvjZKEhPT7HBwKg YEj0HsAtLsQfSHj4EBu8TS 9UWpNrHXGoGmi9LBn1VEXd TLq4AEavSV9TAKI2WeShOH R9ZCA7ECj7YwHmKVVoNbHv XGYgQXJpYWwgXFxmbCBcXG 6poVgocQTvqtFMKcIXm81r xWggHDQxE9s5KVpoQLTvKL BhciANClxlcGljTmVzdERv YzEgDQpcbHRycGFyXGxpbj BccmluMCANClxsdHJjaFxm feIeCOGdY7LsimDwPCahRW Ybna1dbBjbBUwaVeHaPKHx dGhlIHBhdGllbnQncyBuYW 5eTZSxV7Mzi1Wzn23ptpHv MqHsWLVpTRPfH07hCWvoKI dpydfkkDFvk12dPSPdVWEs LB66jXSwtBoiBEBlug96MY wsx2wngCKoPxNjlCvakKXc UNEkxqDkBpRoB54ffeGqIQ HuWPUkouHbG6XsOrKkvBQs NaIlLD46CDPeDPnpEGoeBP O2JVR0LAWguHHqf1jbwq8t SFBeOQHhknOrC0DlQMEzw0 FuUyBcBOUnsgYjlH9izYio jP1hHnezRUq1VYecCL41eU ShVWJrwXWcqCI4lxVaIFIy OAOjSY5rRHNljKAdQZLjv1 8zgvEvA4pyNpDdzz6kZENq BU7yNpWwY11ipC8yX4KwCJ Wah9OwWLszKB2vyK5kGENr bmQgbXVsdGlwbGUgcGVyaX QsWAGycCIaw6Brt5DrrMXo fv4tRIYiJAIxyFNpo9HvRu IeFOItppK0CT2srMPpeX49 ALP4foTfSRD3bTL7ROSmET 7oBMPlty2xWEYXPICkWPAg maJlyBu1YHYjZOW6oE5fnp ErobFzq1TnaYg9wXWvYXmm GLFnUFOtCHStgUhbh8ebWq IuJXHfzKYvPoviADDaz68o XHBhciANClxwYXIgDQpQaW wbxnOQfcn8YCrwGDAfWZVU LCBIVCAoQVNDUCkNClxwbG FpblxlcGljTmVzdERvYzBc jEpdvC87JWBztJYdLMM6PY 1zEWClrucfYYOrELCvUUZ1 NNhjgG73sCOcTXLhOLHvfI QzfV1IMOSgHUG4RGsqiQ17 kNYsKM6MYBHqYLT0OOInwE IiGUD4CF5gsC1YbH== MICROSCOPIC DESCRIPTION b7ukdYNjXHKfvTJ7PqGnNH (test code = 3371) Mno5otm6NqoGQkoWWmUVuk wEUnjjJiwh18pVW3yE25BG 4uFVEeEpE4QBKdvrE8Zaa6 DANyACXiyWAtC838p6any5 psugGdoUJ3fCbxMIOlqejj KfE3IYuzXYSdrfppNPi9OB diEKEwnJL3GEKftNCeU2Sl HCAfPA5iryh3ZJQ5ZCufHG NpQpY1GFMkbJCnIKPmqXon KEcau371XIR3YgOgYMMgao LkiOpwfN9nLhNjFZZOIINm f6KyYJKhnCDdnI== Gross assessment was [facility] performed at (test code [facility] [place], = 5124) Department of Pathology, [address] [place] [address], Technical component was [facility] performed at ([facility], = 2778) Department of Pathology, [address] [place] [address], Professional component [facility] was performed at ([facility], code = 2779) Department of Pathology, [address] [place] [address], [facility] [id number] 18:54:10Surgical Pathology Report Case: [id number] Authorizing Provider: Michael Henriquez Collected: 10/17/2022 01:26 PM MD Naveen Ordering Location: [facility] OR Received: 10/18/2022 08:19 AM Perioperative Services Pathologist: Dany Durham MD Specimen: Condyle,Right Knee BONE, RIGHT KNEE CONDYLE, ARTHROPLASTY - OSTEOARTHRITIS Signing Pathologist Direct Phone Line: [phone] signed by Dany Durham MD on 11/01/2022 at 6:54 [id number], [id number] of right kneeRight kneeA. Condyle,Right Knee.Received in formalin labeled the patient's name, accession number and "condyle,right knee" are multiple cortez- yellow trabeculated bone fragments that range from 1.3-8.4 cm in greatest dimension. The articular surface is smooth to finely granular, displays 2 areas of eburnation ranging from 1.8-2.5 cm in greatest dimension, and multiple peripheral osteophytes. The cut surface is cortez-yellow, trabeculated and firm. Cartography Supervisor sections are submitted in A1-A3 following decalcification.VIRA Cotto, HT (ASCP)PerformedBaylor Sharp [facility], Department of Pathology, [address] [place] [address], [facility], [facility] of Pathology, [address] [place] [address], [facility], Department of Pathology, [address] [place], [place] [id number], RYO, KNEE, 1 OR 2 VIEWS, [id number] 09:17:00Reason for exam:->[facility] 1955 Sex: MFINAL REPORT Radiographs of the right knee HISTORY: PostopCOMPARISON: None available. FINDINGS:Bones:No acute displaced fracture. Osseous alignment is within normal limits. Joints:Patient status post right knee replacement with associated postsurgical change. The surgical hardware is intact without evidence of failure or loosening. Soft tissues:Scattered vascular calcification. Surgical clips posteriorly. IMPRESSION: Patient status post right knee replacement with associated postsurgical change. The surgical hardware is intact without evidence of failure or loosening. Signed: Ruddy Patton Verified Date/Time: 10/18/2022 09:17:59 Reading Location: [facility] Reading Room [address] [place] [address] POC-Glucose meter 2022-10-18 07:14:11 Test Item Value Reference Range Interpretation Comments POC-Glucose Meter (test 89 mg/dL 70-110 : TE STED AT [facility] code = 1538) [address] [facility], [facility] 7 4959: Inspector Crystal/Techni jordan ID = [id number] for Sayra Schmidt Lab Interpretation (test Normal code = 22165-5) [facility]SE [id number] 07:14:11 Test Item Value Reference Range Interpretation Comments POC-GLUCOSE METER 89 mg/dL 70-110 : TESTED A T [facility] 7200 (BEAKER) (test code = [place] DGE BLDG A, 1538) [facility] 7703 0: Inspector Crystal/Techni jordan ID = [id number] for Sayra Dean BASIC METABOLIC [id number] 04:29:57 Test Item Value Reference Range Interpretation Comments SODIUM (BEAKER) 139 meq/L 136-145 (test code = 381) POTASSIUM 4.3 meq/L 3.5-5.1 Specimen slight ly (BEAKER) (test hemolyzed code = 379) CHLORIDE (BEAKER) 108 meq/L 98-107 H (test code = 382) CO2 (BEAKER) 24 meq/L 22-29 (test code = 355) BLOOD UREA 20 mg/dL 7-21 NITROGEN (BEAKER) (test code = 354) CREATININE 1.15 mg/dL 0.57-1.25 Specimen slight ly (BEAKER) (test hemolyzed code = 358) GLUCOSE RANDOM 95 mg/dL 70-105 (BEAKER) (test code = 652) CALCIUM (BEAKER) 7.6 mg/dL 8.4-10.2 L (test code = 697) EGFR (BEAKER) 71 Interpretatio n of eGFR (test code = mL/min/1.73 values Stage De scription 1092) sq m Result G1 Nilda l or high >=90 G2 Mildly decreased 60-89 G3a Mildl y to moderately 45-5 9 G3b Moderately to s everely 30-44 G4 Severl y decreased 15-29 G5 Kidney failure <15Reported eGF R is based on the CKD-EPI 2020 equation that d oes not use a race coefficientEsti mated GFR is not as accur ate as Creatinine Cindy wu in predicting glom erular filtration rate . Estimated GFR is not appl icable for dialysis patien ts HEMOGLOBIN AND [id number] 04:06:50 Test Item Value Reference Range Interpretation Comments HEMOGLOBIN (BEAKER) (test code = 12.1 GM/DL 13.7-17.5 L 410) HEMATOCRIT (BEAKER) (test code = 35.8 % 40.1-51.0 L 411) POCT-GLUCOSE [id number] 20:36:38 Test Item Value Reference Range Interpretation Comments POC-GLUCOSE METER 162 mg/dL 70-110 H : Notified RN/MD: TESTED (BEAKER) (test code AT [facility] 7200 MONICA = 1538) [facility], [place] [id number]: Inspector Crystal/Techni jordan ID = [id number] for La Reeves POCT-GLUCOSE [id number] 16:57:04 Test Item Value Reference Range Interpretation Comments POC-GLUCOSE METER 149 mg/dL 70-110 H : TESTED A T [facility] 7200 (BEAKER) (test code [place] Farzana DG A, = 1538) [place] [address] 0: Inspector Crystal/Techni jordan ID = [id number] for Sayra Dean POCT-GLUCOSE [id number] 15:18:06 Test Item Value Reference Range Interpretation Comments POC-GLUCOSE METER 153 mg/dL 70-110 H : TESTED A T [facility] 7200 (BEAKER) (test code [place] E BLDG A, = 1538) [place] [address] 0: Inspector Crystal/Techni jordan ID = [id number] for Paty Garcia POCT-GLUCOSE [id number] 10:23:43 Test Item Value Reference Range Interpretation Comments POC-GLUCOSE METER 195 mg/dL 70-110 H : TESTED A T [facility] 7200 (BEAKER) (test code [place] E DG A, = 1538) [place] [address] 0: Inspector Crystal/Techni jordan ID = [id number] for Kyler Woods Urinalysis macro (dipstick) panel - [id number] 15:46:00 Test Item Value Reference Range Interpretation Comments leukocytes (test code large neg A = leukocytes) urobilinogen (test 0.2 E.U./dL sm amt code = urobilinogen) (.5-1mg/dL) protein (test code = trace See_Comment A [Autom ated protein) message] The sy stem which generated this result transmitted reference range : <=150 mg/d. The reference range was not used to interpret this result as normal/abnormal . pH (test code = pH) 6.5 4.5-8 blood (test code = trace-intact See_Comment A [Automat ed blood) message] The sy stem which generated this result transmitted reference range : <=3 RBC. The reference range was not used to interpret this result as normal/abnormal . specific gravity 1.020 1.005-1.025 (test code = specific gravity) ketone (test code = negative none ketone) bilirubin (test code negative neg = bilirubin) glucose (test code = 100 mg/dL See_Comment A [Autom ated glucose) message] The sy stem which generated this result transmitted reference range : <=130 mg/d. The reference range was not used to interpret this result as normal/abnormal . color (test code = yellow yellow color) clarity (test code = turbid clear or cloudy clarity) nitrite (test code = negative neg nitrite) [facility] UrologyTISSUE [id number] 14:25:22Surgical Pathology Report Case: [id number] Authorizing Provider: Michael Henriquez Collected: 10/04/2021 02:48 PM Ascencion Hodge MD Ordering Location: [facility] OR Received: 10/05/2021 12:05 PM Perioperative Services Pathologist: Darvin Webb MD Specimen: Femoral Head, Right Hip A. FEMORAL HEAD, RIGHT HIP, ARTHROPLASTY: - OSTEOARTHRITIS AND CHRONIC SYNOVITIS Signing Pathologist Direct Phone Line: [phone] signed by Darvin Webb MD on 10/13/2021 at 2:25 [id number] osteoarthritis of hip, rightFemoral head, right hipA. Received fresh, labeled with thepatient's name, MRN and "femoral head, right hip" is a 5.1 x 4.9 x 4.7 cm femoral head with an attached femoral neck measuring 1.0 cm in length.The articular surface displays focal areas of eburnation with no identifiable osteophyte formation. The remaining medullary bone is yellow-red, heterogeneous and trabeculated. No gross lesions are identified. Cartography Supervisor sections are submitted as follows:Section code:A1: Femoral neck margin, en face following decalcificationA2-A3: Eburnation, sales representative canvas products following decalcificationVIRA De La Rosa studentPerformed. POCT-GLUCOSE [id number] 11:48:02 Test Item Value Reference Range Interpretation Comments POC-GLUCOSE METER 174 mg/dL 70-110 H : TESTED A T [facility] 7200 (BEAKER) (test code CAMBRIDG E BLDG A, = 1538) [place] [id number] 0: Inspector Crystal/Techni jordan ID = [id number] for CHERELLE ALVAREZ POCT-GLUCOSE [id number] 07:19:04 Test Item Value Reference Range Interpretation Comments POC-GLUCOSE METER 185 mg/dL 70-110 H : TESTED A T [facility] 7200 (BEAKER) (test code CAMBRIDG E BLDG A, = 1538) [place] [address] 0: Inspector Crystal/Techni jordan ID = [id number] for CHERELLE ALVAREZ BASIC METABOLIC [id number] 06:20:03 Test Item Value Reference Range Interpretation Comments SODIUM (BEAKER) 134 meq/L 136-145 L (test code = 381) POTASSIUM (BEAKER) 4.0 meq/L 3.5-5.1 (test code = 379) CHLORIDE (BEAKER) 103 meq/L 98-107 (test code = 382) CO2 (BEAKER) (test 23 meq/L 22-29 code = 355) BLOOD UREA NITROGEN 17 mg/dL 7-21 (BEAKER) (test code = 354) CREATININE (BEAKER) 1.27 mg/dL 0.57-1.25 H (test code = 358) GLUCOSE RANDOM 162 mg/dL 70-105 H (BEAKER) (test code = 652) CALCIUM (BEAKER) 8.2 mg/dL 8.4-10.2 L (test code = 697) EGFR (BEAKER) (test 57 mL/min/1.73 ESTIMA MARGIE GFR IS code = 1092) sq m NOT ACCURATE CREATININE CLEARANCE IN PREDICTING GLOMERULAR FILTRATION RATE . ESTIMATED GFR I S NOT APPLICABLE FOR DIALYSIS PATIEN TS. HEMOGLOBIN AND [id number] 05:53:03 Test Item Value Reference Range Interpretation Comments HEMOGLOBIN (BEAKER) (test code = 10.8 GM/DL 13.7-17.5 L 410) HEMATOCRIT (BEAKER) (test code = 33.4 % 40.1-51.0 L 411) POCT-GLUCOSE [id number] 22:02:04 Test Item Value Reference Range Interpretation Comments POC-GLUCOSE METER 156 mg/dL 70-110 H : TESTED A T [facility] 7200 (BEAKER) (test code CAMBRIDG E BLDG A, = 1538) [place] [address] 0: Inspector Crystal/Techni jordan ID = [id number] for Roc capps (V)Leona POCT-GLUCOSE [id number] 17:11:27 Test Item Value Reference Range Interpretation Comments POC-GLUCOSE METER 152 mg/dL 70-110 H : TESTED A T [facility] 7200 (BEAKER) (test code CAMBRIDG E BLDG A, = 1538) [place] [address] 0: Inspector Crystal/Techni jordan ID = [id number] for NIKHIL DELUCA POCT-GLUCOSE [id number] 12:33:52 Test Item Value Reference Range Interpretation Comments POC-GLUCOSE METER 179 mg/dL 70-110 H : TESTED A T [facility]200 (BEAKER) (test code CAMBRIDG E BLDG A, = 1538) [place] [address] 0: Inspector Crystal/Techni jordan ID = [id number] for TREY H, NASRA FL, FLUORO, NON-SPECIFIC, UP TO 1 [id number] 08:59:00Reason for exam:- >[facility] 1955 Sex: MFINAL REPORT TECHNIQUE: Fluoroscopic images from orthopedic procedure. INDICATION: Hip arthroplasty. COMPARISON: None. IMPRESSION:Fluoroscopic images from orthopedic procedure, not obtained by the undersigned. Please refer to operative note for more details of the procedure and findings. Fluoroscopy time: 24 secondsNumber of images: Two Signed: Marcella Ballesteros MDReport Verified Date/T víctor: 10/05/2021 08:59:16 Reading Location: [facility] Room [address] [place] [address] Electronically signedby: Marcella Ballesteros on 10/05/2021 08:59 AMRAD, PELVIS, 1 OR 2 [id number] 08:59:00Low AP pelvis showing the entire prosthesis on a single view (PACU)Reason for exam:->Postop EvalShould this be performed at the bedside?->Yes [facility] 1955 Sex: MFINAL REPORT Exam: AP pelvis History: Postoperative evaluation Comparison: None. Findings: See impression Impression: Postoperative radiograph of a right total hip arthroplasty with intact components. No complication. Signed: Marcella Ballesteros MDReport Verified Date/Time: 10/05/2021 08:59:57 Reading Location: [facility] Reading Room [address] [place] [address] POCT-GLUCOSE [id number] 07:56:18 Test Item Value Reference Range Interpretation Comments POC-GLUCOSE METER 197 mg/dL 70-110 H : TESTED A T [facility] 7200 (BEAKER) (test code CAMBRIDG E BLDG A, = 1538) [place] [id number] 0: Inspector Crystal/Techni jordan ID = [id number] for LISE NAKITANIKHIL BASIC METABOLIC [id number] 05:38:23 Test Item Value Reference Range Interpretation Comments SODIUM (BEAKER) 137 meq/L 136-145 (test code = 381) POTASSIUM (BEAKER) 4.4 meq/L 3.5-5.1 Specimen slightly (test code = 379) hemolyzed CHLORIDE (BEAKER) 106 meq/L 98-107 (test code = 382) CO2 (BEAKER) (test 24 meq/L 22-29 code = 355) BLOOD UREA NITROGEN 20 mg/dL 7-21 (BEAKER) (test code = 354) CREATININE (BEAKER) 1.12 mg/dL 0.57-1.25 Specimen slightly (test code = 358) hemolyzed GLUCOSE RANDOM 231 mg/dL 70-105 H (BEAKER) (test code = 652) CALCIUM (BEAKER) 7.6 mg/dL 8.4-10.2 L (test code = 697) EGFR (BEAKER) (test 66 mL/min/1.73 ESTIMA MARGIE GFR IS code = 1092) sq m NOT ACCURATE CREATININE CLEARANCE IN PREDICTING GLOMERULAR FILTRATION RATE . ESTIMATED GFR I S NOT APPLICABLE FOR DIALYSIS PATIEN TS. HEMOGLOBIN AND [id number] 05:19:20 Test Item Value Reference Range Interpretation Comments HEMOGLOBIN (BEAKER) (test code = 11.4 GM/DL 13.7-17.5 L 410) HEMATOCRIT (BEAKER) (test code = 34.0 % 40.1-51.0 L 411) POCT-GLUCOSE [id number] 21:07:52 Test Item Value Reference Range Interpretation Comments POC-GLUCOSE METER 226 mg/dL 70-110 H : TESTED A T [facility] (BEAKER) (test code CAMBRIDG E BLDG A, = 1538) [place] [id number] 0: Inspector Crystal/Techni jordan ID = [id number] for ALISE ROSAS POCT-GLUCOSE [id number] 17:19:02 Test Item Value Reference Range Interpretation Comments POC-GLUCOSE METER 126 mg/dL 70-110 H : TESTED A T [facility]200 (BEAKER) (test code CAMBRIDG E BLDG A, = 1538) [place] [address] 0: Inspector Crystal/Techni jordan ID = [id number] for Scarlet El POCT-GLUCOSE [id number] 11:44:07 Test Item Value Reference Range Interpretation Comments POC-GLUCOSE METER 128 mg/dL 70-110 H : TESTED A T [facility] (BEAKER) (test code CAMBRIDG E BLDG A, = 1538) [place] [address] 0: Inspector Crystal/Techni jordan ID = [id number] for WILR ICH, AARON CT, CTA, AAA, WITH BOB. EXT. [id number] 15:57:00 [facility] 1955 Sex: MFINAL REPORT EXAM: CTA ABDOMEN AND PELVIS AND BILATERAL LOWER EXTREMITY, WITH CONTRAST. INDICATION: Claudication COMPARISON: CTA abdomen and pelvis and lower extremity dated 02/11/2019. Technique: Multidetector [address] scanning with 2 mm cuts of the abdomen, pelvis and bilateral thighs after administration of 100 cc IV of Omnipaque 350. Coronal and sagittal multiplanar, MIP thin and thick cuts, and 3-D volume-rendering reformations were obtained. In addition, delay images of thelower extremities below the knee were obtained. IV CONTRAST: 150 mL of Isovue 370ORAL CONTRAST: NoneCOMPLICATIONS: None RADIATION DOSE:Total DLP: 1503 mGy*cmEstimated effective dose: 1503 x 0.015 mSvCTDIvol has been reviewed. It is below the limits set by the Radiation Protocol Committee (RPC). FINDINGS:Potential study limitations: None. VASCULAR WITH ADVANCED 3-D OFF-LINE POSTPROCESSING: The abdominal aorta is normal in course, caliber, and contour. Spotty and semicircumferential calcifications identified in the infrarenal abdominal aorta. There is no acute aortic pathology. Specifically, no aneurysm, focal dissection, contained rupture, intramural hematoma or penetrating ulcer. PELVIS VESSELS: Bilateral common, external, and internal iliac arteries are patent with associated eccentric atherosclerotic calcifications without significant stenosis. There are eccentric nonobstructive calcified plaques in the proximal segment of the right external iliac artery resulting in 30-40% stenosis. There are eccentric nonobstructive calcified plaques at the origin of the left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 CELL COUNT (BEAKER) 2.94 M/ L 4.63-6.08 L (test code = 761) HEMOGLOBIN (BEAKER) (test code = 8.7 GM/DL 13.7-17.5 L 410) HEMATOCRIT (BEAKER) (test code = 25.8 % 40.1-51.0 L 411) MEAN CORPUSCULAR VOLUME (BEAKER) 87.8 fL 79.0-92.2 (test code = 753) MEAN CORPUSCULAR HEMOGLOBIN 29.6 pg 25.7-32.2 (BEAKER) (test code = 751) MEAN CORPUSCULAR HEMOGLOBIN CONC 33.7 GM/DL 32.3-36.5 (BEAKER) (test code = 752) RED CELL DISTRIBUTION WIDTH 13.4 % 11.6-14.4 (BEAKER) (test code = 412) PLATELET COUNT (BEAKER) (test 161 K/CU MM 150-450 code = 756) MEAN PLATELET VOLUME (BEAKER) 9.6 fL 9.4-12.4 (test code = 754) NUCLEATED RED BLOOD CELLS 0 /100 WBC 0-0 (BEAKER) (test code = 413) BASIC METABOLIC [id number] 00:41:00 Test Item Value Reference Range Interpretation Comments SODIUM (BEAKER) 133 meq/L 136-145 L (test code = 381) POTASSIUM (BEAKER) 4.2 meq/L 3.5-5.1 (test code = 379) CHLORIDE (BEAKER) 101 meq/L 98-107 (test code = 382) CO2 (BEAKER) (test 24 meq/L 22-29 code = 355) BLOOD UREA NITROGEN 17 mg/dL 7-21 (BEAKER) (test code = 354) CREATININE (BEAKER) 0.93 mg/dL 0.57-1.25 (test code = 358) GLUCOSE RANDOM 159 mg/dL 70-105 H (BEAKER) (test code = 652) CALCIUM (BEAKER) 8.5 mg/dL 8.4-10.2 (test code = 697) EGFR (BEAKER) (test 82 mL/min/1.73 ESTIMA MARGIE GFR IS code = 1092) sq m NOT ACCURATE CREATININE CLEARANCE IN PREDICTING GLOMERULAR FILTRATION RATE . ESTIMATED GFR I S NOT APPLICABLE FOR DIALYSIS PATIEN TS. CBC W/PLT COUNT & AUTO [id number] 00:18:00 Test Item Value Reference Range Interpretation Comments WHITE BLOOD CELL COUNT (BEAKER) 10.7 K/ L 3.5-10.5 H (test code = 775) RED BLOOD CELL COUNT (BEAKER) 2.93 M/ L 4.63-6.08 L (test code = 761) HEMOGLOBIN (BEAKER) (test code = 8.9 GM/DL 13.7-17.5 L 410) HEMATOCRIT (BEAKER) (test code = 25.8 % 40.1-51.0 L 411) MEAN CORPUSCULAR VOLUME (BEAKER) 88.1 fL 79.0-92.2 (test code = 753) MEAN CORPUSCULAR HEMOGLOBIN 30.4 pg 25.7-32.2 (BEAKER) (test code = 751) MEAN CORPUSCULAR HEMOGLOBIN CONC 34.5 GM/DL 32.3-36.5 (BEAKER) (test code = 752) RED CELL DISTRIBUTION WIDTH 13.5 % 11.6-14.4 (BEAKER) (test code = 412) PLATELET COUNT (BEAKER) (test 163 K/CU MM 150-450 code = 756) MEAN PLATELET VOLUME (BEAKER) 9.3 fL 9.4-12.4 L (test code = 754) NUCLEATED RED BLOOD CELLS 0 /100 WBC 0-0 (BEAKER) (test code = 413) NEUTROPHILS RELATIVE PERCENT 68 % (BEAKER) (test code = 429) LYMPHOCYTES RELATIVE PERCENT 19 % (BEAKER) (test code = 430) MONOCYTES RELATIVE PERCENT 11 % (BEAKER) (test code = 431) EOSINOPHILS RELATIVE PERCENT 2 % (BEAKER) (test code = 432) BASOPHILS RELATIVE PERCENT 0 % (BEAKER) (test code = 437) NEUTROPHILS ABSOLUTE COUNT 7.22 K/ L 1.78-5.38 H (BEAKER) (test code = 670) LYMPHOCYTES ABSOLUTE COUNT 2.00 K/ L 1.32-3.57 (BEAKER) (test code = 414) MONOCYTES ABSOLUTE COUNT (BEAKER) 1.17 K/ L 0.30-0.82 H (test code = 415) EOSINOPHILS ABSOLUTE COUNT 0.18 K/ L 0.04-0.54 (BEAKER) (test code = 416) BASOPHILS ABSOLUTE COUNT (BEAKER) 0.03 K/ L 0.01-0.08 (test code = 417) IMMATURE GRANULOCYTES-RELATIVE 1 % 0-1 PERCENT (BEAKER) (test code = 2801) POCT-GLUCOSE [id number] 00:14:00 Test Item Value Reference Range Interpretation Comments POC-GLUCOSE METER 176 mg/dL 70-110 H TESTED AT [place] [address] ([facility]) (test code = [facility] [email or web address] [facility] 1538) [id number] TROPONIN [id number] 22:44:00 Test Item Value Reference Range Interpretation Comments TROPONIN I ([facility]) (test code = 3.71 ng/mL 0.00-0.03 HH 397) Troponin I (TnI) levels must be interpreted in the context of the presenting symptoms and the clinical findings. Elevated TnI levels indicate myocardial damage, but are not specific for ischemic heart disease. Elevated TnI levels are seen in patients with other cardiac conditions (including myocarditis and congestive heart failure), and slight TnI elevations occur in patients with other conditions, including sepsis, renal failure, acidosis, acute neurological disease, and persistent tachyarrhythmia.CREATINE KINASE (CK)2018-07-24 22:33:00 Test Item Value Reference Range Interpretation Comments CREATINE KINASE TOTAL ([facility]) (test 1409 U/L 29-200 H code = 380) POCT-GLUCOSE [id number] 17:21:00 Test Item Value Reference Range Interpretation Comments POC-GLUCOSE METER 176 mg/dL 70-110 H TESTED AT [facility] 6720 ([facility]) (test code = [facility] 1538) [id number] TROPONIN [id number] 16:41:00 Test Item Value Reference Range Interpretation Comments TROPONIN I (BEAKER) (test code = 4.64 ng/mL 0.00-0.03 397) Troponin I (TnI) levels must be interpreted in the context of the presenting symptoms and the clinical findings. Elevated TnI levels indicate myocardial damage, but are not specific for ischemic heart disease. Elevated TnI levels are seen in patients with other cardiac conditions (including myocarditis and congestive heart failure), and slight TnI elevations occur in patients with other conditions, including sepsis, renal failure, acidosis, acute neurological disease, and persistent tachyarrhythmia.BASIC METABOLIC [id number] 16:33:00 Test Item Value Reference Range Interpretation Comments SODIUM (BEAKER) 133 meq/L 136-145 L (test code = 381) POTASSIUM (BEAKER) 4.3 meq/L 3.5-5.1 Specimen slightly (test code = 379) hemolyzed CHLORIDE (BEAKER) 101 meq/L 98-107 (test code = 382) CO2 (BEAKER) (test 26 meq/L 22-29 code = 355) BLOOD UREA NITROGEN 16 mg/dL 7-21 (BEAKER) (test code = 354) CREATININE (BEAKER) 0.98 mg/dL 0.57-1.25 Specimen slightly (test code = 358) hemolyzed GLUCOSE RANDOM 170 mg/dL 70-105 H (BEAKER) (test code = 652) CALCIUM (BEAKER) 8.4 mg/dL 8.4-10.2 (test code = 697) EGFR (BEAKER) (test 78 mL/min/1.73 ESTIMA MARGIE GFR IS code = 1092) sq m NOT ACCURATE CREATININE CLEARANCE IN PREDICTING GLOMERULAR FILTRATION RATE . ESTIMATED GFR I S NOT APPLICABLE FOR DIALYSIS PATIEN TS. CREATINE KINASE (CK)2018-07-24 16:33:00 Test Item Value Reference Range Interpretation Comments CREATINE KINASE TOTAL (BEAKER) (test 1630 U/L 29-200 H code = 380) POCT-GLUCOSE [id number] 12:34:00 Test Item Value Reference Range Interpretation Comments POC-GLUCOSE METER 179 mg/dL 70-110 H TESTED AT [facility] 6720 (BEAKER) (test code = [facility]L[place] [facility] 1538) [id number] POCT-GLUCOSE [id number] 11:54:00 Test Item Value Reference Range Interpretation Comments POC-GLUCOSE METER 189 mg/dL 70-110 H TESTED AT [place] [address] ([facility]) (test code = [facility] [facility] 1538) [address] TROPONIN [id number] 10:05:00 Test Item Value Reference Range Interpretation Comments TROPONIN I ([facility]) (test code = 4.49 ng/mL 0.00-0.03 [facility]) Troponin I (TnI) levels must be interpreted in the context of the presenting symptoms and the clinical findings. Elevated TnI levels indicate myocardial damage, but are not specific for ischemic heart disease. Elevated TnI levels are seen in patients with other cardiac conditions (including myocarditis and congestive heart failure), and slight TnI elevations occur in patients with other conditions, including sepsis, renal failure, acidosis, acute neurological disease, and persistent tachyarrhythmia.CREATINE KINASE (CK)2018-07-24 09:53:00 Test Item Value Reference Range Interpretation Comments CREATINE KINASE TOTAL ([facility]) (test 1688 U/L 29-200 H code = 380) POCT-GLUCOSE [id number] 08:46:00 Test Item Value Reference Range Interpretation Comments POC-GLUCOSE METER 204 mg/dL 70-110 H TESTED AT [place] [address] ([facility]) (test code = [facility] [facility] 1538) [id number] POCT-GLUCOSE [id number] 06:42:00 Test Item Value Reference Range Interpretation Comments POC-GLUCOSE METER 241 mg/dL 70-110 H TESTED AT [place] [address] ([facility]) (test code = [facility] [facility] 1538) [address] POCT-GLUCOSE [id number] 06:03:00 Test Item Value Reference Range Interpretation Comments POC-GLUCOSE METER 246 mg/dL 70-110 H TESTED AT [place] [address] ([facility]) (test code = [place] Muñiz [place] [id number]) [address] CALCIUM, [id number] 04:35:00 Test Item Value Reference Range Interpretation Comments CALCIUM IONIZED ([facility]) (test 1.01 mmol/L 1.12-1.27 L code = 698) PH, BLOOD ([facility]) (test code = 7.53 1810) TROPONIN [id number] 04:28:00 Test Item Value Reference Range Interpretation Comments TROPONIN I (BEAKER) (test code = 4.49 ng/mL 0.00-0.03 HH 397) Troponin I (TnI) levels must be interpreted in the context of the presenting symptoms and the clinical findings. Elevated TnI levels indicate myocardial damage, but are not specific for ischemic heart disease. Elevated TnI levels are seen in patients with other cardiac conditions (including myocarditis and congestive heart failure), and slight TnI elevations occur in patients with other conditions, including sepsis, renal failure, acidosis, acute neurological disease, and persistent tachyarrhythmia.[id number] 04:18:00 Test Item Value Reference Range Interpretation Comments PHOSPHORUS (BEAKER) (test code = 3.1 mg/dL 2.3-4.7 604) [id number] 04:18:00 Test Item Value Reference Range Interpretation Comments MAGNESIUM (BEAKER) (test code = 2.0 mg/dL 1.6-2.6 627) BASIC METABOLIC [id number] 04:18:00 Test Item Value Reference Range Interpretation Comments SODIUM (BEAKER) 135 meq/L 136-145 L (test code = 381) POTASSIUM (BEAKER) 4.5 meq/L 3.5-5.1 (test code = 379) CHLORIDE (BEAKER) 104 meq/L 98-107 (test code = 382) CO2 (BEAKER) (test 23 meq/L 22-29 code = 355) BLOOD UREA NITROGEN 20 mg/dL 7-21 (BEAKER) (test code = 354) CREATININE (BEAKER) 1.01 mg/dL 0.57-1.25 (test code = 358) GLUCOSE RANDOM 172 mg/dL 70-105 H (BEAKER) (test code = 652) CALCIUM (BEAKER) 8.1 mg/dL 8.4-10.2 L (test code = 697) EGFR (BEAKER) (test 75 mL/min/1.73 ESTIMA MARGIE GFR IS code = 1092) sq m NOT ACCURATE CREATININE CLEARANCE IN PREDICTING GLOMERULAR FILTRATION RATE . ESTIMATED GFR I S NOT APPLICABLE FOR DIALYSIS PATIEN TS. CREATINE KINASE (CK)2018-07-24 04:18:00 Test Item Value Reference Range Interpretation Comments CREATINE KINASE TOTAL (BEAKER) (test 1936 U/L 29-200 H code = 380) LACTIC ACID, ARTERIAL, WHOLE [id number] 04:15:00 Test Item Value Reference Range Interpretation Comments LACTATE BLOOD ARTERIAL (2) 0.8 mmol/L 0.5-2.2 (BEAKER) (test code = 2874) CBC (HEMOGRAM ONLY)2018-07-24 04:01:00 Test Item Value Reference Range Interpretation Comments WHITE BLOOD CELL COUNT (BEAKER) 9.9 K/ L 3.5-10.5 (test code = 775) RED BLOOD CELL COUNT (BEAKER) 2.89 M/ L 4.63-6.08 L (test code = 761) HEMOGLOBIN (BEAKER) (test code = 8.6 GM/DL 13.7-17.5 L 410) HEMATOCRIT (BEAKER) (test code = 25.3 % 40.1-51.0 L 411) MEAN CORPUSCULAR VOLUME (BEAKER) 87.5 fL 79.0-92.2 (test code = 753) MEAN CORPUSCULAR HEMOGLOBIN 29.8 pg 25.7-32.2 (BEAKER) (test code = 751) MEAN CORPUSCULAR HEMOGLOBIN CONC 34.0 GM/DL 32.3-36.5 (BEAKER) (test code = 752) RED CELL DISTRIBUTION WIDTH 14.0 % 11.6-14.4 (BEAKER) (test code = 412) PLATELET COUNT (BEAKER) (test 159 K/CU MM 150-450 code = 756) MEAN PLATELET VOLUME (BEAKER) 9.8 fL 9.4-12.4 (test code = 754) NUCLEATED RED BLOOD CELLS 0 /100 WBC 0-0 (BEAKER) (test code = 413) LACTIC ACID, ARTERIAL, WHOLE [id number] 00:42:00 Test Item Value Reference Range Interpretation Comments LACTATE BLOOD ARTERIAL (2) 1.1 mmol/L 0.5-2.2 (BEAKER) (test code = 2874) POCT-GLUCOSE [id number] 00:15:00 Test Item Value Reference Range Interpretation Comments POC-GLUCOSE METER 207 mg/dL 70-110 H TESTED AT [facility] 6720 (BEAKER) (test code = [facility] [place] 1538) [address] POCT-GLUCOSE [id number] 23:53:00 Test Item Value Reference Range Interpretation Comments POC-GLUCOSE METER 170 mg/dL 70-110 H TESTED AT [facility] 6720 (BEAKER) (test code = [place] 1538) [id number] TROPONIN [id number] 21:58:00 Test Item Value Reference Range Interpretation Comments TROPONIN I (BEAKER) (test code = 1.31 ng/mL 0.00-0.03 HH 397) Troponin I (TnI) levels must be interpreted in the context of the presenting symptoms and the clinical findings. Elevated TnI levels indicate myocardial damage, but are not specific for ischemic heart disease. Elevated TnI levels are seen in patients with other cardiac conditions (including myocarditis and congestive heart failure), and slight TnI elevations occur in patients with other conditions, including sepsis, renal failure, acidosis, acute neurological disease, and persistent tachyarrhythmia.CREATINE KINASE (CK)2018-07-23 21:49:00 Test Item Value Reference Range Interpretation Comments CREATINE KINASE TOTAL (BEAKER) (test 1930 U/L 29-200 H code = 380) LACTIC ACID, ARTERIAL, WHOLE [id number] 21:26:00 Test Item Value Reference Range Interpretation Comments LACTATE BLOOD ARTERIAL (2) 1.3 mmol/L 0.5-2.2 (AKER) (test code = 2874) CBC (HEMOGRAM ONLY)2018-07-23 18:27:00 Test Item Value Reference Range Interpretation Comments WHITE BLOOD CELL COUNT (BEAKER) 9.5 K/ L 3.5-10.5 (test code = 775) RED BLOOD CELL COUNT (BEAKER) 2.55 M/ L 4.63-6.08 L (test code = 761) HEMOGLOBIN (BEAKER) (test code = 7.7 GM/DL 13.7-17.5 L 410) HEMATOCRIT (BEAKER) (test code = 22.8 % 40.1-51.0 L 411) MEAN CORPUSCULAR VOLUME (BEAKER) 89.4 fL 79.0-92.2 (test code = 753) MEAN CORPUSCULAR HEMOGLOBIN 30.2 pg 25.7-32.2 (BEAKER) (test code = 751) MEAN CORPUSCULAR HEMOGLOBIN CONC 33.8 GM/DL 32.3-36.5 (BEAKER) (test code = 752) RED CELL DISTRIBUTION WIDTH 13.8 % 11.6-14.4 (BEAKER) (test code = 412) PLATELET COUNT (BEAKER) (test 189 K/CU MM 150-450 code = 756) MEAN PLATELET VOLUME (BEAKER) 10.0 fL 9.4-12.4 (test code = 754) NUCLEATED RED BLOOD CELLS 0 /100 WBC 0-0 (BEAKER) (test code = 413) POCT-GLUCOSE [id number] 17:52:00 Test Item Value Reference Range Interpretation Comments POC-GLUCOSE METER 230 mg/dL 70-110 H TESTED AT [place] [address] ([facility] (test code = [facility] 1538) [address] BASIC METABOLIC [id number] 16:31:00 Test Item Value Reference Range Interpretation Comments SODIUM (BEAKER) 136 meq/L 136-145 (test code = 381) POTASSIUM (BEAKER) 4.2 meq/L 3.5-5.1 (test code = 379) CHLORIDE (BEAKER) 106 meq/L 98-107 (test code = 382) CO2 (BEAKER) (test 24 meq/L 22-29 code = 355) BLOOD UREA NITROGEN 21 mg/dL 7-21 (BEAKER) (test code = 354) CREATININE (BEAKER) 1.02 mg/dL 0.57-1.25 (test code = 358) GLUCOSE RANDOM 116 mg/dL 70-105 H (BEAKER) (test code = 652) CALCIUM (BEAKER) 8.3 mg/dL 8.4-10.2 L (test code = 697) EGFR (BEAKER) (test 74 mL/min/1.73 ESTIMA MARGIE GFR IS code = 1092) sq m NOT ACCURATE CREATININE CLEARANCE IN PREDICTING GLOMERULAR FILTRATION RATE . ESTIMATED GFR I S NOT APPLICABLE FOR DIALYSIS PATIEN TS. LACTIC ACID, ARTERIAL, WHOLE [id number] 16:28:00 Test Item Value Reference Range Interpretation Comments LACTATE BLOOD ARTERIAL (2) 1.3 mmol/L 0.5-2.2 (BEAKER) (test code = 2874) POCT-GLUCOSE [id number] 15:51:00 Test Item Value Reference Range Interpretation Comments POC-GLUCOSE METER 148 mg/dL 70-110 H TESTED AT [facility] 67 ([facility]) (test code = [facility] 1538) [address] HEMOGLOBIN [id number] 15:41:00 Test Item Value Reference Range Interpretation Comments HEMOGLOBIN A1C (BEAKER) (test code = 7.2 % 4.3-6.1 H 368) POCT-GLUCOSE [id number] 14:58:00 Test Item Value Reference Range Interpretation Comments POC-GLUCOSE METER 77 mg/dL 70-110 TESTED AT [facility] 6720 (BEAKER) (test code = [place] [address] 1538) POCT-GLUCOSE [id number] 14:58:00 Test Item Value Reference Range Interpretation Comments POC-GLUCOSE METER 101 mg/dL 70-110 TESTED AT [facility] 6720 (BEAKER) (test code = [place] 1538) [address] [id number] 13:31:00 Test Item Value Reference Range Interpretation Comments POTASSIUM (BEAKER) (test code = 4.1 meq/L 3.5-5.1 379) CREATINE KINASE (CK)2018-07-23 13:31:00 Test Item Value Reference Range Interpretation Comments CREATINE KINASE TOTAL (BEAKER) (test 1976 U/L 29-200 H code = 380) [id number] 13:31:00 Test Item Value Reference Range Interpretation Comments GLUCOSE RANDOM (BEAKER) (test code 150 mg/dL 70-105 H = 652) BASIC METABOLIC [id number] 13:31:00 Test Item Value Reference Range Interpretation Comments SODIUM (BEAKER) 137 meq/L 136-145 (test code = 381) POTASSIUM (BEAKER) 4.1 meq/L 3.5-5.1 (test code = 379) CHLORIDE (BEAKER) 108 meq/L 98-107 H (test code = 382) CO2 (BEAKER) (test 23 meq/L 22-29 code = 355) BLOOD UREA NITROGEN 22 mg/dL 7-21 H (BEAKER) (test code = 354) CREATININE (BEAKER) 1.09 mg/dL 0.57-1.25 (test code = 358) GLUCOSE RANDOM 150 mg/dL 70-105 H (BEAKER) (test code = 652) CALCIUM (BEAKER) 8.3 mg/dL 8.4-10.2 L (test code = 697) EGFR (BEAKER) (test 69 mL/min/1.73 ESTIMA MARGIE GFR IS code = 1092) sq m NOT ACCURATE CREATININE CLEARANCE IN PREDICTING GLOMERULAR FILTRATION RATE . ESTIMATED GFR I S NOT APPLICABLE FOR DIALYSIS PATIEN TS. LACTIC ACID, ARTERIAL, WHOLE [id number] 13:08:00 Test Item Value Reference Range Interpretation Comments LACTATE BLOOD ARTERIAL (2) 2.4 mmol/L 0.5-2.2 H ([facility]) (test code = 2874) POCT-GLUCOSE [id number] 13:07:00 Test Item Value Reference Range Interpretation Comments POC-GLUCOSE METER 135 mg/dL 70-110 H TESTED AT [place] [address] ([facility]) (test code = [place] 1538) [address] POCT-GLUCOSE [id number] 12:25:00 Test Item Value Reference Range Interpretation Comments POC-GLUCOSE METER 183 mg/dL 70-110 H TESTED AT [place] [address] ([facility]) (test code = [place] 1538) [address] POCT-GLUCOSE [id number] 12:25:00 Test Item Value Reference Range Interpretation Comments POC-GLUCOSE METER 209 mg/dL 70-110 H TESTED AT [place] [address] ([facility]) (test code = [place] 1538) [address] POCT-GLUCOSE [id number] 09:03:00 Test Item Value Reference Range Interpretation Comments POC-GLUCOSE METER 281 mg/dL 70-110 H TESTED AT [place] [address] ([facility]) (test code = [place] 1538) [address] POCT-GLUCOSE [id number] 08:59:00 Test Item Value Reference Range Interpretation Comments POC-GLUCOSE METER 267 mg/dL 70-110 H TESTED AT [place] [address] ([facility]) (test code = [place] 1538) [address] LACTIC ACID, ARTERIAL, WHOLE [id number] 08:42:00 Test Item Value Reference Range Interpretation Comments LACTATE BLOOD ARTERIAL (2) 2.4 mmol/L 0.5-2.2 H ([facility]) (test code = 2874) CBC (HEMOGRAM ONLY)2018-07-23 08:28:00 Test Item Value Reference Range Interpretation Comments WHITE BLOOD CELL COUNT ([facility]) 10.2 K/ L 3.5-10.5 (test code = 775) RED BLOOD CELL COUNT (BEAKER) 2.60 M/ L 4.63-6.08 L (test code = 761) HEMOGLOBIN (BEAKER) (test code = 7.8 GM/DL 13.7-17.5 L 410) HEMATOCRIT (BEAKER) (test code = 23.3 % 40.1-51.0 L 411) MEAN CORPUSCULAR VOLUME (BEAKER) 89.6 fL 79.0-92.2 (test code = 753) MEAN CORPUSCULAR HEMOGLOBIN 30.0 pg 25.7-32.2 (BEAKER) (test code = 751) MEAN CORPUSCULAR HEMOGLOBIN CONC 33.5 GM/DL 32.3-36.5 (BEAKER) (test code = 752) RED CELL DISTRIBUTION WIDTH 13.3 % 11.6-14.4 (BEAKER) (test code = 412) PLATELET COUNT (BEAKER) (test 168 K/CU MM 150-450 code = 756) MEAN PLATELET VOLUME (BEAKER) 9.8 fL 9.4-12.4 (test code = 754) NUCLEATED RED BLOOD CELLS 0 /100 WBC 0-0 (BEAKER) (test code = 413) POCT-GLUCOSE [id number] 06:26:00 Test Item Value Reference Range Interpretation Comments POC-GLUCOSE METER 243 mg/dL 70-110 H TESTED AT [facility] 6720 (BEAKER) (test code = [place] 1538) [address] CALCIUM, [id number] 05:07:00 Test Item Value Reference Range Interpretation Comments CALCIUM IONIZED (BEAKER) (test 1.10 mmol/L 1.12-1.27 L code = 698) PH, BLOOD (BEAKER) (test code = 7.38 1810) CBC (HEMOGRAM ONLY)2018-07-23 04:58:00 Test Item Value Reference Range Interpretation Comments WHITE BLOOD CELL COUNT (BEAKER) 11.3 K/ L 3.5-10.5 H (test code = 775) RED BLOOD CELL COUNT (BEAKER) 2.34 M/ L 4.63-6.08 L (test code = 761) HEMOGLOBIN (BEAKER) (test code = 7.0 GM/DL 13.7-17.5 L 410) HEMATOCRIT (BEAKER) (test code = 21.5 % 40.1-51.0 L 411) MEAN CORPUSCULAR VOLUME (BEAKER) 91.9 fL 79.0-92.2 (test code = 753) MEAN CORPUSCULAR HEMOGLOBIN 29.9 pg 25.7-32.2 (BEAKER) (test code = 751) MEAN CORPUSCULAR HEMOGLOBIN CONC 32.6 GM/DL 32.3-36.5 (BEAKER) (test code = 752) RED CELL DISTRIBUTION WIDTH 12.9 % 11.6-14.4 (BEAKER) (test code = 412) PLATELET COUNT (BEAKER) (test 185 K/CU MM 150-450 code = 756) MEAN PLATELET VOLUME (BEAKER) 10.0 fL 9.4-12.4 (test code = 754) NUCLEATED RED BLOOD CELLS 0 /100 WBC 0-0 (BEAKER) (test code = 413) BASIC METABOLIC [id number] 04:44:00 Test Item Value Reference Range Interpretation Comments SODIUM (BEAKER) 138 meq/L 136-145 (test code = 381) POTASSIUM (BEAKER) 4.9 meq/L 3.5-5.1 (test code = 379) CHLORIDE (BEAKER) 108 meq/L 98-107 H (test code = 382) CO2 (BEAKER) (test 22 meq/L 22-29 code = 355) BLOOD UREA NITROGEN 19 mg/dL 7-21 (BEAKER) (test code = 354) CREATININE (BEAKER) 0.97 mg/dL 0.57-1.25 (test code = 358) GLUCOSE RANDOM 262 mg/dL 70-105 H (BEAKER) (test code = 652) CALCIUM (BEAKER) 7.9 mg/dL 8.4-10.2 L (test code = 697) EGFR (BEAKER) (test 78 mL/min/1.73 ESTIMA MARGIE GFR IS code = 1092) sq m NOT ACCURATE CREATININE CLEARANCE IN PREDICTING GLOMERULAR FILTRATION RATE . ESTIMATED GFR I S NOT APPLICABLE FOR DIALYSIS PATIEN TS. [id number] 04:43:00 Test Item Value Reference Range Interpretation Comments PHOSPHORUS (BEAKER) (test code = 3.8 mg/dL 2.3-4.7 604) [id number] 04:43:00 Test Item Value Reference Range Interpretation Comments MAGNESIUM (BEAKER) (test code = 2.0 mg/dL 1.6-2.6 627) CREATINE KINASE (CK)2018-07-23 04:43:00 Test Item Value Reference Range Interpretation Comments CREATINE KINASE TOTAL (BEAKER) (test 1526 U/L 29-200 H code = 380) LACTIC ACID, ARTERIAL, WHOLE [id number] 04:37:00 Test Item Value Reference Range Interpretation Comments LACTATE BLOOD ARTERIAL (2) 3.4 mmol/L 0.5-2.2 H (BEAKER) (test code = 2874) CREATINE KINASE (CK)2018-07-23 00:57:00 Test Item Value Reference Range Interpretation Comments CREATINE KINASE TOTAL (BEAKER) (test 419 U/L 29-200 H code = 380) BLOOD GAS, [id number] 00:45:00 Test Item Value Reference Range Interpretation Comments PH ARTERIAL (BEAKER) (test code = 7.38 7.35-7.45 383) PCO2 ARTERIAL (BEAKER) (test code 33 mmHg 35-45 L = 384) PO2 ARTERIAL (BEAKER) (test code 170 mmHg 80-90 H = 385) O2 SATURATION ARTERIAL (BEAKER) 99.2 % 96.0-97.0 H (test code = 386) HCO3 ARTERIAL (BEAKER) (test code 19 mmol/L 21-29 L = 388) BASE EXCESS ARTERIAL (BEAKER) -5.3 mmol/L -2.0-3.0 L (test code = 387) PATIENT TEMPERATURE (BEAKER) 36.5 C (test code = 1818) FIO2 (BEAKER) (test code = 1819) 28.0 % LACTIC ACID, ARTERIAL, WHOLE [id number] 00:13:00 Test Item Value Reference Range Interpretation Comments LACTATE BLOOD ARTERIAL (2) 3.3 mmol/L 0.5-2.2 H (BEAKER) (test code = 2874) [id number] 00:12:00 Test Item Value Reference Range Interpretation Comments POTASSIUM (BEAKER) (test code = 5.2 meq/L 3.5-5.1 H 379) HEMOGLOBIN AND [id number] 23:59:00 Test Item Value Reference Range Interpretation Comments HEMOGLOBIN (BEAKER) (test code = 8.1 GM/DL 13.7-17.5 L 410) HEMATOCRIT (BEAKER) (test code = 24.3 % 40.1-51.0 L 411) POCT-GLUCOSE [id number] 23:56:00 Test Item Value Reference Range Interpretation Comments POC-GLUCOSE METER 350 mg/dL 70-110 H TESTED AT [facility] 6720 (DESIRAE) (test code = [place] 1538) [address] [id number] 22:02:00 Test Item Value Reference Range Interpretation Comments POTASSIUM (BEAKER) (test code = 5.4 meq/L 3.5-5.1 H 379) RAD, CHEST, 1 VIEW, NON [id number] 21:05:00Reason for exam:->postopShould this be performed at the bedside?->YesFINAL REPORT EXAMINATION: AP PORTABLE CHEST RADIOGRAPH CLINICAL INDICATION: Shortness of breath. Recent surgical intervention. IMPRESSION: Compared with 05/07/2018. Exam is mildly limited by the AP portable semiupright technique and superimposed objects which are external to the patient. Subtle curvilinear reticular opacities are noted in both lungs. Morphology and distribution favor subsegmental atelectasis and/or scarring. An underlying pneumonia is difficult to completely exclude. No definite evidence of pulmonary edema, large pleural effusion or pneumothorax. The heart is borderline enlarged but stable. Mediastinal contours are grossly similar to the prior study. Multiple rib fractures and a left clavicle fracture are again noted. The majority the fractures appear old withcallus. However, if there is clinical concern for acute osseous injury, dedicated rib series or CT could be performed for further evaluation. Signed: Arian Saez MDReport Verified Date/Time: 07/22/2018 21:05:52 Reading Location: [address] Reading Room [id number] 20:59:00 Test Item Value Reference Range Interpretation Comments PROTIME (BEAKER) (test code = 16.1 seconds 11.7-14.7 H 759) INR (BEAKER) (test code = 370) 1.3 <=5.9 PARTIAL THROMBOPLASTIN TIME 50.7 seconds 22.5-36.0 H (BEAKER) (test code = 760) RECOMMENDED COUMADIN/WARFARIN INR THERAPY RANGESSTANDARD DOSE: 2.0 - 3.0 Includes: PROPHYLAXIS for venous thrombosis, systemic embolization; TREATMENT for venous thrombosis and/or pulmonary embolus.HIGH RISK: Target INR is 2.5-3.5 for patients with mechanical heart valves.[id number] 20:30:00 Test Item Value Reference Range Interpretation Comments PHOSPHORUS (BEAKER) (test code = 4.7 mg/dL 2.3-4.7 604) [id number] 20:30:00 Test Item Value Reference Range Interpretation Comments MAGNESIUM (BEAKER) (test code = 1.5 mg/dL 1.6-2.6 L 627) COMPREHENSIVE METABOLIC [id number] 20:30:00 Test Item Value Reference Range Interpretation Comments TOTAL PROTEIN 5.7 gm/dL 6.0-8.3 L (BEAKER) (test code = 770) ALBUMIN (BEAKER) 3.7 g/dL 3.5-5.0 (test code = 1145) ALKALINE PHOSPHATASE 34 U/L 40-150 L (BEAKER) (test code = 346) BILIRUBIN TOTAL 0.7 mg/dL 0.2-1.2 (BEAKER) (test code = 377) SODIUM (BEAKER) (test 134 meq/L 136-145 L code = 381) POTASSIUM (BEAKER) 5.6 meq/L 3.5-5.1 H (test code = 379) CHLORIDE (BEAKER) 106 meq/L 98-107 (test code = 382) CO2 (BEAKER) (test 19 meq/L 22-29 L code = 355) BLOOD UREA NITROGEN 18 mg/dL 7-21 (BEAKER) (test code = 354) CREATININE (BEAKER) 1.03 mg/dL 0.57-1.25 (test code = 358) GLUCOSE RANDOM 284 mg/dL 70-105 H (BEAKER) (test code = 652) CALCIUM (BEAKER) 8.3 mg/dL 8.4-10.2 L (test code = 697) AST (SGOT) (BEAKER) 28 U/L 5-34 (test code = 353) ALT (SGPT) (BEAKER) 34 U/L 6-55 (test code = 347) EGFR (BEAKER) (test 73 mL/min/1.73 ESTIMA MARGIE GFR IS code = 1092) sq m NOT ACCURATE CREATININE CLEARANCE IN PREDICTING GLOMERULAR FILTRATION RATE . ESTIMATED GFR I S NOT APPLICABLE FOR DIALYSIS PATIEN TS. CALCIUM, [id number] 20:26:00 Test Item Value Reference Range Interpretation Comments CALCIUM IONIZED (BEAKER) (test 1.06 mmol/L 1.12-1.27 L code = 698) PH, BLOOD (BEAKER) (test code = 7.38 1810) LACTIC ACID, ARTERIAL, WHOLE [id number] 20:24:00 Test Item Value Reference Range Interpretation Comments LACTATE BLOOD ARTERIAL (2) 2.8 mmol/L 0.5-2.2 H (BEAKER) (test code = 2874) CBC W/PLT COUNT & AUTO [id number] 20:11:00 Test Item Value Reference Range Interpretation Comments WHITE BLOOD CELL COUNT (BEAKER) 13.1 K/ L 3.5-10.5 H (test code = 775) RED BLOOD CELL COUNT (BEAKER) 3.01 M/ L 4.63-6.08 L (test code = 761) HEMOGLOBIN (BEAKER) (test code = 9.2 GM/DL 13.7-17.5 L 410) HEMATOCRIT (BEAKER) (test code = 27.2 % 40.1-51.0 L 411) MEAN CORPUSCULAR VOLUME (BEAKER) 90.4 fL 79.0-92.2 (test code = 753) MEAN CORPUSCULAR HEMOGLOBIN 30.6 pg 25.7-32.2 (BEAKER) (test code = 751) MEAN CORPUSCULAR HEMOGLOBIN CONC 33.8 GM/DL 32.3-36.5 (BEAKER) (test code = 752) RED CELL DISTRIBUTION WIDTH 12.6 % 11.6-14.4 (BEAKER) (test code = 412) PLATELET COUNT (BEAKER) (test 208 K/CU MM 150-450 code = 756) MEAN PLATELET VOLUME (BEAKER) 9.6 fL 9.4-12.4 (test code = 754) NUCLEATED RED BLOOD CELLS 0 /100 WBC 0-0 (BEAKER) (test code = 413) NEUTROPHILS RELATIVE PERCENT 91 % (BEAKER) (test code = 429) LYMPHOCYTES RELATIVE PERCENT 6 % (BEAKER) (test code = 430) MONOCYTES RELATIVE PERCENT 2 % (BEAKER) (test code = 431) EOSINOPHILS RELATIVE PERCENT 0 % (BEAKER) (test code = 432) BASOPHILS RELATIVE PERCENT 0 % (BEAKER) (test code = 437) NEUTROPHILS ABSOLUTE COUNT 11.93 K/ L 1.78-5.38 H (BEAKER) (test code = 670) LYMPHOCYTES ABSOLUTE COUNT 0.79 K/ L 1.32-3.57 L (BEAKER) (test code = 414) MONOCYTES ABSOLUTE COUNT (BEAKER) 0.30 K/ L 0.30-0.82 (test code = 415) EOSINOPHILS ABSOLUTE COUNT 0.00 K/ L 0.04-0.54 L (BEAKER) (test code = 416) BASOPHILS ABSOLUTE COUNT (BEAKER) 0.02 K/ L 0.01-0.08 (test code = 417) IMMATURE GRANULOCYTES-RELATIVE 1 % 0-1 PERCENT (BEAKER) (test code = 2801) FL, 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 Castillo, as an intra-procedure imaging consultation was not requested. Reported fluoroscopy time: 2.1 minutes. Signed: Jeanmarie Corral Verified Date/Time: 07/22/2018 17:46:32 Reading Location: [facility] Radiology Reading Room [id number] 17:16:00 Test Item Value Reference Range Interpretation Comments ACTIVATED CLOTTING TIME 235 sec TEST ED AT [place] [address] ([facility]) (test code = [place] [facility] 441) [address] [id number] 17:16:00 Test Item Value Reference Range Interpretation Comments ACTIVATED CLOTTING TIME 224 sec TEST ED AT [place] [address] ([facility]) (test code = [place] 441) [address] [id number] 17:16:00 Test Item Value Reference Range Interpretation Comments ACTIVATED CLOTTING TIME 257 sec TEST ED AT [facility] 6720 (BEAKER) (test code = [place] 441) [address] [id number] 17:15:00 Test Item Value Reference Range Interpretation Comments ACTIVATED CLOTTING TIME 241 sec TEST ED AT [facility] 6720 (BEAKER) (test code = [place] [facility] 441) [address] [id number]-STAT [id number] 16:29:00 Test Item Value Reference Range Interpretation Comments POTASSIUM (BEAKER) (test code = 4.7 meq/L 3.6-5.5 379) BLOOD GAS, [id number] 16:29:00 Test Item Value Reference Range Interpretation Comments PH ARTERIAL (BEAKER) (test code = 7.36 7.35-7.45 383) PCO2 ARTERIAL (BEAKER) (test code 40 mmHg 35-45 = 384) PO2 ARTERIAL (BEAKER) (test code 207 mmHg 80-90 H = 385) O2 SATURATION ARTERIAL (BEAKER) 99.4 % 96.0-97.0 H (test code = 386) HCO3 ARTERIAL (BEAKER) (test code 22 mmol/L 21-29 = 388) BASE EXCESS ARTERIAL (BEAKER) -3.0 mmol/L -2.0-3.0 L (test code = 387) PATIENT TEMPERATURE (BEAKER) 36.2 C (test code = 1818) FIO2 (BEAKER) (test code = 1819) 54.0 % SODIUM NA-STAT [id number] 16:29:00 Test Item Value Reference Range Interpretation Comments SODIUM (BEAKER) (test code = 381) 134 meq/L 135-148 L GLUCOSE-STAT [id number] 16:29:00 Test Item Value Reference Range Interpretation Comments GLUCOSE RANDOM (BEAKER) (test code 205 mg/dL 70-110 H = 652) HGB/HCT (H&H) - STAT [id number] 16:29:00 Test Item Value Reference Range Interpretation Comments HEMOGLOBIN (BEAKER) (test code = 11.2 g/dL 13.0-16.8 L 410) HEMATOCRIT (BEAKER) (test code = 33.0 % 40.0-50.0 L 411) CALCIUM, [id number] 16:28:00 Test Item Value Reference Range Interpretation Comments CALCIUM IONIZED (BEAKER) (test 1.13 mmol/L 1.12-1.27 code = 698) PH, BLOOD (BEAKER) (test code = 7.35 1810) GLUCOSE-STAT [id number] 14:52:00 Test Item Value Reference Range Interpretation Comments GLUCOSE RANDOM (BEAKER) (test code 177 mg/dL 70-110 H = 652) HGB/HCT (H&H) - STAT [id number] 14:52:00 Test Item Value Reference Range Interpretation Comments HEMOGLOBIN (BEAKER) (test code = 12.4 g/dL 13.0-16.8 L 410) HEMATOCRIT (BEAKER) (test code = 36.0 % 40.0-50.0 L 411) BLOOD GAS, [id number] 14:52:00 Test Item Value Reference Range Interpretation Comments PH ARTERIAL (BEAKER) (test code = 7.40 7.35-7.45 383) PCO2 ARTERIAL (BEAKER) (test code 39 mmHg 35-45 = 384) PO2 ARTERIAL (BEAKER) (test code 192 mmHg 80-90 H = 385) O2 SATURATION ARTERIAL (BEAKER) 99.3 % 96.0-97.0 H (test code = 386) HCO3 ARTERIAL (BEAKER) (test code 24 mmol/L 21-29 = 388) BASE EXCESS ARTERIAL (BEAKER) -1.4 mmol/L -2.0-3.0 (test code = 387) PATIENT TEMPERATURE (BEAKER) 36.0 C (test code = 1818) FIO2 (BEAKER) (test code = 1819) 52.0 % CALCIUM, [id number] 14:52:00 Test Item Value Reference Range Interpretation Comments CALCIUM IONIZED (BEAKER) (test 1.03 mmol/L 1.12-1.27 L code = 698) PH, BLOOD (BEAKER) (test code = 7.38 1810) SODIUM NA-STAT [id number] 14:51:00 Test Item Value Reference Range Interpretation Comments SODIUM (BEAKER) (test code = 381) 135 meq/L 135-148 POTASSIUM-STAT [id number] 14:51:00 Test Item Value Reference Range Interpretation Comments POTASSIUM (BEAKER) (test code = 4.8 meq/L 3.6-5.5 379) [id number] 14:14:00 Test Item Value Reference Range Interpretation Comments ACTIVATED CLOTTING TIME 296 sec TEST ED AT [facility] 6720 (BEAKER) (test code = [place] 441) [address] CALCIUM, [id number] 13:12:00 Test Item Value Reference Range Interpretation Comments CALCIUM IONIZED (BEAKER) (test 1.07 mmol/L 1.12-1.27 L code = 698) PH, BLOOD (BEAKER) (test code = 7.39 1810) BLOOD GAS, [id number] 13:12:00 Test Item Value Reference Range Interpretation Comments PH ARTERIAL (BEAKER) (test code = 7.41 7.35-7.45 383) PCO2 ARTERIAL (BEAKER) (test code 39 mmHg 35-45 = 384) PO2 ARTERIAL (BEAKER) (test code 264 mmHg 80-90 H = 385) O2 SATURATION ARTERIAL (BEAKER) 99.6 % 96.0-97.0 H (test code = 386) HCO3 ARTERIAL (BEAKER) (test code 24 mmol/L 21-29 = 388) BASE EXCESS ARTERIAL (BEAKER) -0.7 mmol/L -2.0-3.0 (test code = 387) PATIENT TEMPERATURE (BEAKER) 35.6 C (test code = 1818) FIO2 (BEAKER) (test code = 1819) 55.0 % GLUCOSE-STAT [id number] 13:12:00 Test Item Value Reference Range Interpretation Comments GLUCOSE RANDOM (BEAKER) (test code 163 mg/dL 70-110 H = 652) HGB/HCT (H&H) - STAT [id number] 13:12:00 Test Item Value Reference Range Interpretation Comments HEMOGLOBIN (BEAKER) (test code = 12.9 g/dL 13.0-16.8 L 410) HEMATOCRIT (BEAKER) (test code = 38.0 % 40.0-50.0 L 411) SODIUM NA-STAT [id number] 13:11:00 Test Item Value Reference Range Interpretation Comments SODIUM (BEAKER) (test code = 381) 135 meq/L 135-148 POTASSIUM-STAT [id number] 13:11:00 Test Item Value Reference Range Interpretation Comments POTASSIUM (BEAKER) (test code = 4.6 meq/L 3.6-5.5 379) BASIC METABOLIC [id number] 11:20:00 Test Item Value Reference Range Interpretation Comments SODIUM (BEAKER) 139 meq/L 136-145 (test code = 381) POTASSIUM (BEAKER) 4.7 meq/L 3.5-5.1 (test code = 379) CHLORIDE (BEAKER) 106 meq/L 98-107 (test code = 382) CO2 (BEAKER) (test 23 meq/L 22-29 code = 355) BLOOD UREA NITROGEN 17 mg/dL 7-21 (BEAKER) (test code = 354) CREATININE (BEAKER) 1.02 mg/dL 0.57-1.25 (test code = 358) GLUCOSE RANDOM 180 mg/dL 70-105 H (BEAKER) (test code = 652) CALCIUM (BEAKER) 9.4 mg/dL 8.4-10.2 (test code = 697) EGFR (BEAKER) (test 74 mL/min/1.73 ESTIMA MARGIE GFR IS code = 1092) sq m NOT ACCURATE CREATININE CLEARANCE IN PREDICTING GLOMERULAR FILTRATION RATE . ESTIMATED GFR I S NOT APPLICABLE FOR DIALYSIS PATIEN TS. CBC W/PLT COUNT & AUTO [id number] 09:56:00 Test Item Value Reference Range Interpretation Comments WHITE BLOOD CELL COUNT (BEAKER) 7.4 K/ L 3.5-10.5 (test code = 775) RED BLOOD CELL COUNT (BEAKER) 4.52 M/ L 4.63-6.08 L (test code = 761) HEMOGLOBIN (BEAKER) (test code = 13.5 GM/DL 13.7-17.5 L 410) HEMATOCRIT (BEAKER) (test code = 40.0 % 40.1-51.0 L 411) MEAN CORPUSCULAR VOLUME (BEAKER) 88.5 fL 79.0-92.2 (test code = 753) MEAN CORPUSCULAR HEMOGLOBIN 29.9 pg 25.7-32.2 (BEAKER) (test code = 751) MEAN CORPUSCULAR HEMOGLOBIN CONC 33.8 GM/DL 32.3-36.5 (BEAKER) (test code = 752) RED CELL DISTRIBUTION WIDTH 12.3 % 11.6-14.4 (BEAKER) (test code = 412) PLATELET COUNT (BEAKER) (test 233 K/CU MM 150-450 code = 756) MEAN PLATELET VOLUME (BEAKER) 9.7 fL 9.4-12.4 (test code = 754) NUCLEATED RED BLOOD CELLS 0 /100 WBC 0-0 (BEAKER) (test code = 413) NEUTROPHILS RELATIVE PERCENT 65 % (BEAKER) (test code = 429) LYMPHOCYTES RELATIVE PERCENT 23 % (BEAKER) (test code = 430) MONOCYTES RELATIVE PERCENT 9 % (BEAKER) (test code = 431) EOSINOPHILS RELATIVE PERCENT 2 % (BEAKER) (test code = 432) BASOPHILS RELATIVE PERCENT 1 % (BEAKER) (test code = 437) NEUTROPHILS ABSOLUTE COUNT 4.77 K/ L 1.78-5.38 (BEAKER) (test code = 670) LYMPHOCYTES ABSOLUTE COUNT 1.70 K/ L 1.32-3.57 (BEAKER) (test code = 414) MONOCYTES ABSOLUTE COUNT (BEAKER) 0.68 K/ L 0.30-0.82 (test code = 415) EOSINOPHILS ABSOLUTE COUNT 0.18 K/ L 0.04-0.54 (BEAKER) (test code = 416) BASOPHILS ABSOLUTE COUNT (BEAKER) 0.04 K/ L 0.01-0.08 (test code = 417) IMMATURE GRANULOCYTES-RELATIVE 0 % 0-1 PERCENT (BEAKER) (test code = 2801) [id number] 16:38:00 Test Item Value Reference Range Interpretation Comments SODIUM (BEAKER) (test 144 meq/L 136-145 code = 381) POTASSIUM (BEAKER) 5.2 meq/L 3.5-5.1 H Specimen slightly (test code = 379) hemolyzed CHLORIDE (BEAKER) 105 meq/L 98-107 (test code = 382) CO2 (BEAKER) (test 26 meq/L 22-29 code = 355) [id number] 16:38:00 Test Item Value Reference Range Interpretation Comments GLUCOSE RANDOM (BEAKER) (test code 159 mg/dL 70-105 H = 652) BUN AND [id number] 16:38:00 Test Item Value Reference Range Interpretation Comments BLOOD UREA NITROGEN 14 mg/dL 7-21 (BEAKER) (test code = 354) CREATININE (BEAKER) 1.25 mg/dL 0.57-1.25 Specimen slightly (test code = 358) hemolyzed EGFR (BEAKER) (test 59 mL/min/1.73 ESTIMA MARGIE GFR IS code = 1092) sq m NOT ACCURATE CREATININE CLEARANCE IN PREDICTING GLOMERULAR FILTRATION RATE . ESTIMATED GFR I S NOT APPLICABLE FOR DIALYSIS PATIEN TS. [id number] 16:36:00 Test Item Value Reference Range Interpretation Comments SODIUM (BEAKER) (test 145 meq/L 136-145 code = 381) POTASSIUM (BEAKER) 4.7 meq/L 3.5-5.1 Specimen slightly (test code = 379) hemolyzed CHLORIDE (BEAKER) 104 meq/L 98-107 (test code = 382) CO2 (BEAKER) (test 29 meq/L 22-29 code = 355) [id number] 16:36:00 Test Item Value Reference Range Interpretation Comments GLUCOSE RANDOM (BEAKER) (test code 158 mg/dL 70-105 H = 652) BUN AND [id number] 16:36:00 Test Item Value Reference Range Interpretation Comments BLOOD UREA NITROGEN 14 mg/dL 7-21 (BEAKER) (test code = 354) CREATININE (BEAKER) 1.22 mg/dL 0.57-1.25 Specimen slightly (test code = 358) hemolyzed EGFR (BEAKER) (test 60 mL/min/1.73 ESTIMA AMRGIE GFR IS code = 1092) sq m NOT ACCURATE CREATININE CLEARANCE IN PREDICTING GLOMERULAR FILTRATION RATE . ESTIMATED GFR I S NOT APPLICABLE FOR DIALYSIS PATIEN TS. [id number] 16:19:00 Test Item Value Reference Range Interpretation Comments HEMOGLOBIN (BEAKER) (test code = 14.0 GM/DL 13.7-17.5 410) [id number] 16:16:00 Test Item Value Reference Range Interpretation Comments HEMOGLOBIN (BEAKER) (test code = 14.0 GM/DL 13.7-17.5 410) POCT-GLUCOSE [id number] 09:29:00 Test Item Value Reference Range Interpretation Comments POC-GLUCOSE METER 226 mg/dL 70-110 H TESTED AT [facility] 6720 (BEAKER) (test code = [place]LA[place]AL[place] 1538) [address] [id number] 05:59:00 Test Item Value Reference Range Interpretation Comments PHOSPHORUS (BEAKER) (test code = 4.2 mg/dL 2.3-4.7 604) [id number] 05:59:00 Test Item Value Reference Range Interpretation Comments MAGNESIUM (BEAKER) (test code = 2.1 mg/dL 1.6-2.6 627) BASIC METABOLIC [id number] 05:59:00 Test Item Value Reference Range Interpretation Comments SODIUM (BEAKER) 136 meq/L 136-145 (test code = 381) POTASSIUM (BEAKER) 4.2 meq/L 3.5-5.1 (test code = 379) CHLORIDE (BEAKER) 103 meq/L 98-107 (test code = 382) CO2 (BEAKER) (test 24 meq/L 22-29 code = 355) BLOOD UREA NITROGEN 22 mg/dL 7-21 H (BEAKER) (test code = 354) CREATININE (BEAKER) 1.16 mg/dL 0.57-1.25 (test code = 358) GLUCOSE RANDOM 170 mg/dL 70-105 H (BEAKER) (test code = 652) CALCIUM (BEAKER) 8.6 mg/dL 8.4-10.2 (test code = 697) EGFR (BEAKER) (test 64 mL/min/1.73 ESTIMA MARGIE GFR IS code = 1092) sq m NOT ACCURATE CREATININE CLEARANCE IN PREDICTING GLOMERULAR FILTRATION RATE . ESTIMATED GFR I S NOT APPLICABLE FOR DIALYSIS PATIEN TS. CBC W/PLT COUNT & AUTO [id number] 04:23:00 Test Item Value Reference Range Interpretation Comments WHITE BLOOD CELL COUNT (BEAKER) 9.7 K/ L 3.5-10.5 (test code = 775) RED BLOOD CELL COUNT (BEAKER) 3.39 M/ L 4.63-6.08 L (test code = 761) HEMOGLOBIN (BEAKER) (test code = 10.4 GM/DL 13.7-17.5 L 410) HEMATOCRIT (BEAKER) (test code = 30.3 % 40.1-51.0 L 411) MEAN CORPUSCULAR VOLUME (BEAKER) 89.4 fL 79.0-92.2 (test code = 753) MEAN CORPUSCULAR HEMOGLOBIN 30.7 pg 25.7-32.2 (BEAKER) (test code = 751) MEAN CORPUSCULAR HEMOGLOBIN CONC 34.3 GM/DL 32.3-36.5 (BEAKER) (test code = 752) RED CELL DISTRIBUTION WIDTH 12.4 % 11.6-14.4 (BEAKER) (test code = 412) PLATELET COUNT (BEAKER) (test 143 K/CU MM 150-450 L code = 756) MEAN PLATELET VOLUME (BEAKER) 9.6 fL 9.4-12.4 (test code = 754) NUCLEATED RED BLOOD CELLS 0 /100 WBC 0-0 (BEAKER) (test code = 413) NEUTROPHILS RELATIVE PERCENT 66 % (BEAKER) (test code = 429) LYMPHOCYTES RELATIVE PERCENT 19 % (BEAKER) (test code = 430) MONOCYTES RELATIVE PERCENT 12 % (BEAKER) (test code = 431) EOSINOPHILS RELATIVE PERCENT 2 % (BEAKER) (test code = 432) BASOPHILS RELATIVE PERCENT 0 % (BEAKER) (test code = 437) NEUTROPHILS ABSOLUTE COUNT 6.37 K/ L 1.78-5.38 H (BEAKER) (test code = 670) LYMPHOCYTES ABSOLUTE COUNT 1.87 K/ L 1.32-3.57 (BEAKER) (test code = 414) MONOCYTES ABSOLUTE COUNT (BEAKER) 1.14 K/ L 0.30-0.82 H (test code = 415) EOSINOPHILS ABSOLUTE COUNT 0.19 K/ L 0.04-0.54 (BEAKER) (test code = 416) BASOPHILS ABSOLUTE COUNT (BEAKER) 0.03 K/ L 0.01-0.08 (test code = 417) IMMATURE GRANULOCYTES-RELATIVE 1 % 0-1 PERCENT (BEAKER) (test code = 2802) POCT-GLUCOSE [id number] 20:52:00 Test Item Value Reference Range Interpretation Comments POC-GLUCOSE METER 134 mg/dL 70-110 H TESTED AT [place] [address] ([facility]) (test code = [facility] Antonino [facility] 1538) [id number] POCT-GLUCOSE [id number] 16:29:00 Test Item Value Reference Range Interpretation Comments POC-GLUCOSE METER 103 mg/dL 70-110 TESTED AT [place] [address] ([facility]) (test code = [facility] 1538) [address] POCT-GLUCOSE [id number] 12:31:00 Test Item Value Reference Range Interpretation Comments POC-GLUCOSE METER 305 mg/dL 70-110 H TESTED AT [place] [address] ([facility]) (test code = [facility] Antonino [facility] 1538) [address] POCT-GLUCOSE [id number] 07:42:00 Test Item Value Reference Range Interpretation Comments POC-GLUCOSE METER 228 mg/dL 70-110 H TESTED AT [facility] 6720 (BEAKER) (test code = [place] 1538) [address] [id number] 05:27:00 Test Item Value Reference Range Interpretation Comments PARTIAL THROMBOPLASTIN TIME 30.9 seconds 22.5-36.0 (BEAKER) (test code = 760) [id number] 05:26:00 Test Item Value Reference Range Interpretation Comments PHOSPHORUS (BEAKER) (test code = 4.7 mg/dL 2.3-4.7 604) [id number] 05:26:00 Test Item Value Reference Range Interpretation Comments MAGNESIUM (BEAKER) (test code = 1.9 mg/dL 1.6-2.6 627) BASIC METABOLIC [id number] 05:26:00 Test Item Value Reference Range Interpretation Comments SODIUM (BEAKER) 135 meq/L 136-145 L (test code = 381) POTASSIUM (BEAKER) 4.8 meq/L 3.5-5.1 (test code = 379) CHLORIDE (BEAKER) 106 meq/L 98-107 (test code = 382) CO2 (BEAKER) (test 22 meq/L 22-29 code = 355) BLOOD UREA NITROGEN 18 mg/dL 7-21 (BEAKER) (test code = 354) CREATININE (BEAKER) 1.10 mg/dL 0.57-1.25 (test code = 358) GLUCOSE RANDOM 165 mg/dL 70-105 H (BEAKER) (test code = 652) CALCIUM (BEAKER) 8.4 mg/dL 8.4-10.2 (test code = 697) EGFR (BEAKER) (test 68 mL/min/1.73 ESTIMA MARGIE GFR IS code = 1092) sq m NOT ACCURATE CREATININE CLEARANCE IN PREDICTING GLOMERULAR FILTRATION RATE . ESTIMATED GFR I S NOT APPLICABLE FOR DIALYSIS PATIEN TS. CBC W/PLT COUNT & AUTO [id number] 05:14:00 Test Item Value Reference Range Interpretation Comments WHITE BLOOD CELL COUNT (BEAKER) 10.6 K/ L 3.5-10.5 H (test code = 775) RED BLOOD CELL COUNT (BEAKER) 3.60 M/ L 4.63-6.08 L (test code = 761) HEMOGLOBIN (BEAKER) (test code = 10.9 GM/DL 13.7-17.5 L 410) HEMATOCRIT (BEAKER) (test code = 31.8 % 40.1-51.0 L 411) MEAN CORPUSCULAR VOLUME (BEAKER) 88.3 fL 79.0-92.2 (test code = 753) MEAN CORPUSCULAR HEMOGLOBIN 30.3 pg 25.7-32.2 (BEAKER) (test code = 751) MEAN CORPUSCULAR HEMOGLOBIN CONC 34.3 GM/DL 32.3-36.5 (BEAKER) (test code = 752) RED CELL DISTRIBUTION WIDTH 12.3 % 11.6-14.4 (BEAKER) (test code = 412) PLATELET COUNT (BEAKER) (test 155 K/CU MM 150-450 code = 756) MEAN PLATELET VOLUME (BEAKER) 9.6 fL 9.4-12.4 (test code = 754) NUCLEATED RED BLOOD CELLS 0 /100 WBC 0-0 (BEAKER) (test code = 413) NEUTROPHILS RELATIVE PERCENT 69 % (BEAKER) (test code = 429) LYMPHOCYTES RELATIVE PERCENT 18 % (BEAKER) (test code = 430) MONOCYTES RELATIVE PERCENT 11 % (BEAKER) (test code = 431) EOSINOPHILS RELATIVE PERCENT 1 % (BEAKER) (test code = 432) BASOPHILS RELATIVE PERCENT 0 % (BEAKER) (test code = 437) NEUTROPHILS ABSOLUTE COUNT 7.29 K/ L 1.78-5.38 H (BEAKER) (test code = 670) LYMPHOCYTES ABSOLUTE COUNT 1.92 K/ L 1.32-3.57 (BEAKER) (test code = 414) MONOCYTES ABSOLUTE COUNT (BEAKER) 1.15 K/ L 0.30-0.82 H (test code = 415) EOSINOPHILS ABSOLUTE COUNT 0.13 K/ L 0.04-0.54 (BEAKER) (test code = 416) BASOPHILS ABSOLUTE COUNT (BEAKER) 0.04 K/ L 0.01-0.08 (test code = 417) IMMATURE GRANULOCYTES-RELATIVE 1 % 0-1 PERCENT (BEAKER) (test code = 2801) POCT-GLUCOSE [id number] 01:20:00 Test Item Value Reference Range Interpretation Comments POC-GLUCOSE METER 135 mg/dL 70-110 H TESTED AT [facility] 6720 (BEAKER) (test code = [place] Mu[place]iz [place] 1538) [address] [id number] 21:10:00 Test Item Value Reference Range Interpretation Comments PHOSPHORUS (BEAKER) (test code = 4.4 mg/dL 2.3-4.7 604) [id number] 21:10:00 Test Item Value Reference Range Interpretation Comments MAGNESIUM (BEAKER) (test code = 1.9 mg/dL 1.6-2.6 627) BASIC METABOLIC [id number] 21:10:00 Test Item Value Reference Range Interpretation Comments SODIUM (BEAKER) 136 meq/L 136-145 (test code = 381) POTASSIUM (BEAKER) 4.6 meq/L 3.5-5.1 (test code = 379) CHLORIDE (BEAKER) 105 meq/L 98-107 (test code = 382) CO2 (BEAKER) (test 21 meq/L 22-29 L code = 355) BLOOD UREA NITROGEN 15 mg/dL 7-21 (BEAKER) (test code = 354) CREATININE (BEAKER) 1.00 mg/dL 0.57-1.25 (test code = 358) GLUCOSE RANDOM 195 mg/dL 70-105 H (BEAKER) (test code = 652) CALCIUM (BEAKER) 8.6 mg/dL 8.4-10.2 (test code = 697) EGFR (BEAKER) (test 76 mL/min/1.73 ESTIMA MARGIE GFR IS code = 1092) sq m NOT ACCURATE CREATININE CLEARANCE IN PREDICTING GLOMERULAR FILTRATION RATE . ESTIMATED GFR I S NOT APPLICABLE FOR DIALYSIS PATIEN TS. 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 Number of images: 10Fluoroscopic time: 1.6 minute The films were submitted to PACS postprocedure. The radiologist was not present at the time of examination. An interpretation was not requested. The submitted images are nondiagnostic without real-time visualization. Please refer to the performing physician's dictation for all details regarding the procedure including the submitted images. The radiologist did not perform fluoroscopy. Signed: Marcella Xiong MDReport Verified Date/Time: 06/13/2018 15:10:57 Reading Location: [address] Consult Reading Room APTT 2018-06-13 14:44:00 Test Item Value Reference Range Interpretation Comments PARTIAL THROMBOPLASTIN TIME 28.3 seconds 22.5-36.0 (BEAKER) (test code = 760) Prior to initiating heparinCBC (HEMOGRAM ONLY)2018-06-13 14:37:00 Test Item Value Reference Range Interpretation Comments WHITE BLOOD CELL COUNT (BEAKER) 12.7 K/ L 3.5-10.5 H (test code = 775) RED BLOOD CELL COUNT (BEAKER) 4.11 M/ L 4.63-6.08 L (test code = 761) HEMOGLOBIN (BEAKER) (test code = 12.5 GM/DL 13.7-17.5 L 410) HEMATOCRIT (BEAKER) (test code = 36.5 % 40.1-51.0 L 411) MEAN CORPUSCULAR VOLUME (BEAKER) 88.8 fL 79.0-92.2 (test code = 753) MEAN CORPUSCULAR HEMOGLOBIN 30.4 pg 25.7-32.2 (BEAKER) (test code = 751) MEAN CORPUSCULAR HEMOGLOBIN CONC 34.2 GM/DL 32.3-36.5 (BEAKER) (test code = 752) RED CELL DISTRIBUTION WIDTH 12.2 % 11.6-14.4 (BEAKER) (test code = 412) PLATELET COUNT (BEAKER) (test 191 K/CU MM 150-450 code = 756) MEAN PLATELET VOLUME (BEAKER) 9.8 fL 9.4-12.4 (test code = 754) NUCLEATED RED BLOOD CELLS 0 /100 WBC 0-0 (BEAKER) (test code = 413) [id number] 11:56:00 Test Item Value Reference Range Interpretation Comments ACTIVATED CLOTTING TIME 246 sec TEST ED AT [place] [address] (BEAKER) (test code = [place] 441) [address] [id number] 11:56:00 Test Item Value Reference Range Interpretation Comments ACTIVATED CLOTTING TIME 219 sec TEST ED AT [place] [address] (BEAKER) (test code = [facility] [place] [address]) [address] CALCIUM, [id number] 10:26:00 Test Item Value Reference Range Interpretation Comments CALCIUM IONIZED (BEAKER) (test 0.98 mmol/L 1.12-1.27 L code = 698) PH, BLOOD (BEAKER) (test code = 7.40 1810) POTASSIUM-STAT [id number] 10:25:00 Test Item Value Reference Range Interpretation Comments POTASSIUM (BEAKER) (test code = 4.5 meq/L 3.6-5.5 379) BLOOD GAS, [id number] 10:25:00 Test Item Value Reference Range Interpretation Comments PH ARTERIAL (BEAKER) (test code = 7.40 7.35-7.45 383) PCO2 ARTERIAL (BEAKER) (test code 36 mmHg 35-45 = 384) PO2 ARTERIAL (BEAKER) (test code 246 mmHg 80-90 H = 385) O2 SATURATION ARTERIAL (BEAKER) 99.6 % 96.0-97.0 H (test code = 386) HCO3 ARTERIAL (BEAKER) (test code 22 mmol/L 21-29 = 388) BASE EXCESS ARTERIAL (BEAKER) -2.6 mmol/L -2.0-3.0 L (test code = 387) PATIENT TEMPERATURE (BEAKER) 36.7 C (test code = 1818) FIO2 (BEAKER) (test code = 1819) 50.0 % SODIUM NA-STAT [id number] 10:25:00 Test Item Value Reference Range Interpretation Comments SODIUM (BEAKER) (test code = 381) 133 meq/L 135-148 L GLUCOSE-STAT [id number] 10:25:00 Test Item Value Reference Range Interpretation Comments GLUCOSE RANDOM (BEAKER) (test code 210 mg/dL 70-110 H = 652) HGB/HCT (H&H) - STAT [id number] 10:25:00 Test Item Value Reference Range Interpretation Comments HEMOGLOBIN (BEAKER) (test code = 12.9 g/dL 13.0-16.8 L 410) HEMATOCRIT (BEAKER) (test code = 38.0 % 40.0-50.0 L 411) BLOOD GAS, [id number] 09:07:00 Test Item Value Reference Range Interpretation Comments PH ARTERIAL (BEAKER) (test code = 7.38 7.35-7.45 383) PCO2 ARTERIAL (BEAKER) (test code 41 mmHg 35-45 = 384) PO2 ARTERIAL (BEAKER) (test code 238 mmHg 80-90 H = 385) O2 SATURATION ARTERIAL (BEAKER) 99.5 % 96.0-97.0 H (test code = 386) HCO3 ARTERIAL (BEAKER) (test code 24 mmol/L 21-29 = 388) BASE EXCESS ARTERIAL (BEAKER) -1.8 mmol/L -2.0-3.0 (test code = 387) PATIENT TEMPERATURE (BEAKER) 36.0 C (test code = 1818) FIO2 (BEAKER) (test code = 1819) 50.0 % HGB/HCT (H&H) - STAT [id number] 09:07:00 Test Item Value Reference Range Interpretation Comments HEMOGLOBIN (BEAKER) (test code = 13.4 g/dL 13.0-16.8 410) HEMATOCRIT (BEAKER) (test code = 39.0 % 40.0-50.0 L 411) CALCIUM, [id number] 09:06:00 Test Item Value Reference Range Interpretation Comments CALCIUM IONIZED (BEAKER) (test 1.05 mmol/L 1.12-1.27 L code = 698) PH, BLOOD (BEAKER) (test code = 7.36 1810) SODIUM NA-STAT [id number] 09:05:00 Test Item Value Reference Range Interpretation Comments SODIUM (BEAKER) (test code = 381) 133 meq/L 135-148 L GLUCOSE-STAT [id number] 09:05:00 Test Item Value Reference Range Interpretation Comments GLUCOSE RANDOM (BEAKER) (test code 209 mg/dL 70-110 H = 652) POTASSIUM-STAT [id number] 09:04:00 Test Item Value Reference Range Interpretation Comments POTASSIUM (BEAKER) (test code = 4.4 meq/L 3.6-5.5 379) COMPREHENSIVE METABOLIC [id number] 06:47:00 Test Item Value Reference Range Interpretation Comments TOTAL PROTEIN 7.8 gm/dL 6.0-8.3 Specimen sligh tly (BEAKER) (test code = hemoly zed 770) ALBUMIN (BEAKER) 4.6 g/dL 3.5-5.0 Specimen sl ightly (test code = 1145) hemolyzed ALKALINE PHOSPHATASE 66 U/L 40-150 (BEAKER) (test code = 346) BILIRUBIN TOTAL 0.5 mg/dL 0.2-1.2 Specimen sli ghtly (BEAKER) (test code = hemoly zed 377) SODIUM (BEAKER) (test 135 meq/L 136-145 L code = 381) POTASSIUM (BEAKER) 4.4 meq/L 3.5-5.1 Specimen slightly (test code = 379) hemolyzed CHLORIDE (BEAKER) 100 meq/L 98-107 (test code = 382) CO2 (BEAKER) (test 25 meq/L 22-29 code = 355) BLOOD UREA NITROGEN 18 mg/dL 7-21 (BEAKER) (test code = 354) CREATININE (BEAKER) 1.12 mg/dL 0.57-1.25 Specimen slightly (test code = 358) hemolyzed GLUCOSE RANDOM 191 mg/dL 70-105 H (BEAKER) (test code = 652) CALCIUM (BEAKER) 9.4 mg/dL 8.4-10.2 (test code = 697) AST (SGOT) (BEAKER) 48 U/L 5-34 H Specimen slightly (test code = 353) hemolyzed ALT (SGPT) (BEAKER) 68 U/L 6-55 H Specimen slightly (test code = 347) hemolyzed EGFR (BEAKER) (test 66 mL/min/1.73 ESTIMA MARGIE GFR IS code = 1092) sq m NOT ACCURATE CREATININE CLEARANCE IN PREDICTING GLOMERULAR FILTRATION RATE . ESTIMATED GFR I S NOT APPLICABLE FOR DIALYSIS PATIEN TS. ANG, AORTOGRAM, W/ LEGS [id number] 11:44:00Reason for Exam:->PVDReason for Exam:->CADFINAL REPORT Abdominal aortogram and bilateral lower extremity angiogram, 05/20/2018. History: Peripheral vascular disease with history of stent placement, now with right lower extremity nonhealing ulcer. Modality: Fluoroscopy. Sedation: Versed 1 mg and fentanyl 50 mcg was given intravenously for conscious sedation. Vital signs were monitored throughout the procedure by a nurse, and remained stable. Physician intra- service time was 30 minutes. Healthcare Liaison: Lucy. Accounts Adjustable Clerk:Piter. Approach: Left common femoral artery. Estimated blood loss: < 10 cc. Specimen: None. Fluoroscopy Time: 4.2 min. Dose (Ka,r): 345 mGy. Technique: Informed written consent was obtained. Discussion of risks, benefits, and alternatives were made with the patient. The patient expressed understanding and agreed to proceed. All elements maximal sterile barrier technique was utilized for this procedure, including utilization of sterile scrub solution for skin prep, a large sterile sheet to coverthe areas of the patient that were not prepped, and hand hygiene, mask, head covering, and sterile gown for performing radiologist and scrub technologist. The skin was anesthetized with 2 % lidocaine. The left common femoral artery was accessed using a micropuncture set. A 5 Uzbek sheath was placed.A 5 Uzbek omniflush catheter was placed for a DSA run of the aorta. The catheter was withdrawn to the level of the bifurcation for DSA runs of the pelvis and proximal thighs. The catheter was then used to select the right external iliac artery for DSA runs of the right lower extremity down to the level of the foot. The catheter was withdrawn to the left external iliac artery for DSA run-off of the left leg. The sheath was removed, the arteriotomy was closed, and hemostasis was obtained using a Mynxclosure device. Vital signs were monitored throughout the procedure by a nurse, and remained stable.The patient tolerated the procedure well and left the department in the same condition. FINDINGS: Abdominal aorta: The abdominal aorta is within normal limits. Single renal arteries are present bilaterally which are patent. Pelvis: The common and external iliac arteries are patent bilaterally. Mild tomoderate disease is present within bilateral internal iliac arteries without evidence of focal stenosis. Right lower extremity: There is severe focal stenosis of the right common femoral artery. The profundus femoral artery is patent. There is complete occlusion at the origin of the superficial femoral artery. Several stents are present within the midportion of the SFA which are occluded. Profunda collateral vessels reconstitute the distal SFA. Popliteal artery is patent. There is 3 vessel runoff with dominant supply to the foot by the posterior tibial artery. Left lower extremity: The common and profundus femoral arteries are patent. There is complete occlusion at the origin of the superficial femoral artery. Multiple stents are present within the proximal and mid SFA which are occluded. Profunda collateral vessels reconstitute the popliteal artery which is patent. There is 2 vessel runoff by the peroneal and posterior tibial with dominant supply to the foot by the posterior tibial artery. Theanterior tibial artery occludes proximally. Impression: 1. Successful, uncomplicated aortogram and selective bilateral lower extremity angiogram, performed with conscious sedation. Bilateral SFA occlusion as described above.2. Arteriotomy hemostasis obtained with Mynx closure device.. Signed: Ede Law MDReport Verified Date/Time: 05/20/2018 11:44:17 Reading Location: [place] [address] Angio Body Reading Room BASIC METABOLIC [id number] 07:34:00 Test Item Value Reference Range Interpretation Comments SODIUM (BEAKER) 135 meq/L 136-145 L (test code = 381) POTASSIUM (BEAKER) 4.7 meq/L 3.5-5.1 (test code = 379) CHLORIDE (BEAKER) 100 meq/L 98-107 (test code = 382) CO2 (BEAKER) (test 23 meq/L 22-29 code = 355) BLOOD UREA NITROGEN 22 mg/dL 7-21 H (BEAKER) (test code = 354) CREATININE (BEAKER) 1.18 mg/dL 0.57-1.25 (test code = 358) GLUCOSE RANDOM 238 mg/dL 70-105 H (BEAKER) (test code = 652) CALCIUM (BEAKER) 9.5 mg/dL 8.4-10.2 (test code = 697) EGFR (BEAKER) (test 63 mL/min/1.73 ESTIMA MARGIE GFR IS code = 1092) sq m NOT ACCURATE CREATININE CLEARANCE IN PREDICTING GLOMERULAR FILTRATION RATE . ESTIMATED GFR I S NOT APPLICABLE FOR DIALYSIS PATIEN TS. [id number] 07:24:00 Test Item Value Reference Range Interpretation Comments PROTIME (BEAKER) (test code = 14.0 seconds 11.7-14.7 759) INR (BEAKER) (test code = 370) 1.1 <=5.9 PARTIAL THROMBOPLASTIN TIME 26.2 seconds 22.5-36.0 (BEAKER) (test code = 760) RECOMMENDED COUMADIN/WARFARIN INR THERAPY RANGESSTANDARD DOSE: 2.0 - 3.0 Includes: PROPHYLAXIS for venous thrombosis, systemic embolization; TREATMENT for venous thrombosis and/or pulmonary embolus.HIGH RISK: Target INR is 2.5-3.5 for patients with mechanical heart valves.CBC W/PLT COUNT & AUTO [id number] 07:12:00 Test Item Value Reference Range Interpretation Comments WHITE BLOOD CELL COUNT (BEAKER) 8.9 K/ L 3.5-10.5 (test code = 775) RED BLOOD CELL COUNT (BEAKER) 4.87 M/ L 4.63-6.08 (test code = 761) HEMOGLOBIN (BEAKER) (test code = 14.8 GM/DL 13.7-17.5 410) HEMATOCRIT (BEAKER) (test code = 43.0 % 40.1-51.0 411) MEAN CORPUSCULAR VOLUME (BEAKER) 88.3 fL 79.0-92.2 (test code = 753) MEAN CORPUSCULAR HEMOGLOBIN 30.4 pg 25.7-32.2 (BEAKER) (test code = 751) MEAN CORPUSCULAR HEMOGLOBIN CONC 34.4 GM/DL 32.3-36.5 (BEAKER) (test code = 752) RED CELL DISTRIBUTION WIDTH 12.0 % 11.6-14.4 (BEAKER) (test code = 412) PLATELET COUNT (BEAKER) (test 220 K/CU MM 150-450 code = 756) MEAN PLATELET VOLUME (BEAKER) 9.6 fL 9.4-12.4 (test code = 754) NUCLEATED RED BLOOD CELLS 0 /100 WBC 0-0 (BEAKER) (test code = 413) NEUTROPHILS RELATIVE PERCENT 66 % (BEAKER) (test code = 429) LYMPHOCYTES RELATIVE PERCENT 22 % (BEAKER) (test code = 430) MONOCYTES RELATIVE PERCENT 9 % (BEAKER) (test code = 431) EOSINOPHILS RELATIVE PERCENT 3 % (BEAKER) (test code = 432) BASOPHILS RELATIVE PERCENT 1 % (BEAKER) (test code = 437) NEUTROPHILS ABSOLUTE COUNT 5.82 K/ L 1.78-5.38 H (BEAKER) (test code = 670) LYMPHOCYTES ABSOLUTE COUNT 1.93 K/ L 1.32-3.57 (BEAKER) (test code = 414) MONOCYTES ABSOLUTE COUNT (BEAKER) 0.79 K/ L 0.30-0.82 (test code = 415) EOSINOPHILS ABSOLUTE COUNT 0.22 K/ L 0.04-0.54 (BEAKER) (test code = 416) BASOPHILS ABSOLUTE COUNT (BEAKER) 0.04 K/ L 0.01-0.08 (test code = 417) IMMATURE GRANULOCYTES-RELATIVE 1 % 0-1 PERCENT (BEAKER) (test code = 2801) RAD, CHEST, 2 [id number] 09:15:00Reason for Exam:->I25.10FINAL REPORT Chest, PA and lateral. History: I25.10. Comparison: None available. Discussion: The cardiomediastinal silhouette and pulmonary vasculature are within normal limits. The lungs are clear without evidence of consolidation or effusion. There are no acute osseous abnormalities. Remote left lateral rib fractures. The soft tissues are unremarkable. IMPRESSION: No acute cardiopulmonary abnormality. Signed: Joseluis Arteaga MDReport Verified Date/Time: 05/07/2018 09:15:34 Reading Location: [address] Radiology Reading Room Notes Date/Time Note Provider Source 2018-08-21 15:43:07-00:00 JAUN CASTILLO [facility] OPERATIVE/PROCEDURE REPORT JASPREET GOSS FACILITY: [facility] Billing #: [phone] Room: [address] [place] [address] MR #: [id number] : 1955 DATE OF PROCEDURE: 07/22/2018 SURGEON: Jaun Castillo MD PREOPERATIVE DIAGNOSIS: Severe lifestyle-limitin g claudication of the left lower extremity. POSTOPERATIVE DIAGNOSIS: Severe lifestyle-limiti ng claudication of the left lower extremity. OPERATION PERFORMED: 1. Left common femoral to [id number] poplite al artery bypass with in situ greater saphenous vein. 2. Angiography. REASONING FOR THIS PROCEDURE: Mr. Goss is a pa tient of Dr. Ascencio and under his care has undergone diagnostic angiography of bilateral lower extremities showing severe disea se and failure of endovascular therapy after extensive stenting on one side. He has already undergone an in situ bypass on th e right lower extremity which is working fantastically, and he is here for his second bypass of his left leg. PROCEDURAL STEPS: The patient was identified in the preoperative holding area and consent was signed and the site was marked. He was then brought to the OR where he was prepped and draped in the usual fashion for left lower e xtremity angiogram. Time-out was called and the procedure initiated. Dissection of the left common femoral artery was performed as well as low dissection of the greater saphenous vein and its branches. The small tributaries of the proximal segment of the saphenous vein were ligated and resected, and th e saphenous clancy was then transected and ligated in order to complete hemostasis of the femoral vein. The common femor al artery was then slowly dissected in its portion distally to allow adequate hemostasis. We placed double looped vessel loops and were able to find a nice area for the proximal anastomosis . Attention was then placed on the distal segment below the knee. Dissection was carried out slowly, all the way d own to the tshel-awu-hqot popliteal artery and we were able to ligate and transect small venous to expose the p opliteal artery. We placed also double looped vessel loop s and had an adequate segment for distal anastomosis. Attenti on was then placed on dissection of the distal saphenous vei n which was transected and ligated distally and confirmed th at there was good adequate extension of the saphenous vein to create the anastomosis. Proximally, we used the Jimenez Valvu lotome to break loose the first 2 or 3 valves encountered in the proximal segment of the saphenous vein and then were able to, after complete heparinization and clamp down of the fe moral artery, perform an end-to-side anastomosis with running 6-0 Prolene sutures after performing an 11 blade arteriotomy and extending it with the Ball scissors cranially and caudall y. Once this anastomosis was adequate and pulsatile, we ascen ded from the distal segment of the open saphenous vein a Nicky itre flexible Valvulotome which was maneuvered with some diffi culty in the mid portion all the way up to the common femoral artery. Two centimeters away from the anastomosis, we then d eployed the Valvulotome and pulled back engaging at what see med to be 4 to 5 valves. We then passed it a second time and go t adequate valve lysis and some pulsatile flow. At this poi nt, attention was then placed on the distal anastomosis. We pe rformed the distal anastomosis without much problems by credanyelle linkg an arteriotomy in the popliteal artery and extendin g it distally and proximally and then using a 6-0 Prolene to c reate an end-to-side anastomosis in running fashion. At t his point, all clamps were freed, but, unfortunately, we had lo st the pulsatile flow down to the saphenous vein. Angio graphy was used to revise the fem-pop bypass and the integr ity of the saphenous vein showing that the proximal two thi rds were intact, but there was in the mid port ion of the saphenous vein. We opened this mid portion and f ound that there was an atretic and somewhat fibrotic segme nt of the saphenous vein which we elected to dilate with a Mikel balloon obtaining good response after also ligat ing some tributaries and tube roller veins. I was pleased with the flow patterns and angiography demonstrated good flow patterns through the saphenous conduit at which point I _ and closed by multiple layers of Vicryl both the pro ximal and distal incisions in the leg. The patient was sta ble throughout the procedure and had a strong biphasic signal a t the posterior tibial artery at the end of the procedure. SHARLA/DEVI /[id number]
[2023-01-25] MEDS ORDERED: MORPHINE 4 MG/ML SYR ONE ×3 (07:26→11:20)
[2023-01-25] MEDS ORDERED: ONDANSETRON 4 MG/2 ML VIAL ONE (07:26)
--- NOTE | 2023-01-25 08:51 | RAD REPORT ---
EXAM DESCRIPTION: RAD - Femur Left - 01/25/2023 7:41 am CLINICAL HISTORY: PAIN COMPARISON: <Comparisons> FINDINGS: Moderately displaced oblique fracture is seen of the proximal left femur. The fracture deepa e is just inferior to the femoral stem component. Heavy atherosclerosis.
[2023-01-25 09:27] LABS: Hematocrit 27.5 % (39.6-49.0); Lymphocytes % 8.6 % (15.3-44.8); MCV 85.6 fL (80-100); MPV 6.8 fL (7.6-11.3); RBC Red Blood Cell Count 3.21 M/uL (4.33-5.43)
--- NOTE | 2023-01-25 09:40 | EDPHYS ---
Physician Documentation [facility] Name: Wyatt Goss Age: 67 yrs Sex: Male : 1955 Arrival Date: 01/25/2023 Time: 06:43 Bed 18 Private MD: ED Physician Liam Hanks HPI: 01/25 07:07 This 67 yrs old Male presents to ER via EMS with complaints of Fall, left hip pain. rt 07:07 Patient presents to the ED with mechanical fall. He denies any dizziness, near syncopal rt symptoms. Patient landed on his left side. He states that he did not hit his head. Patient does complain of a left hip to left thigh pain. He states that he had a hip replacement 10 days ago at [facility]. Pain is aching nature, nonradiating, moderate severity, no other aggravating or alleviating factors.. Historical: - Allergies: 06:54 No Known Allergies; ll3 - Home Meds: 06:54 clopidogrel 75 mg oral tablet daily [Active]; lisinopril 20 mg Oral tablet daily ll3 [Active]; rosuvastatin 40 mg oral tablet daily [Active]; metoprolol succinate 25 mg oral Tablet, Extended Release 24 hr daily [Active]; Lantus U-100 Insulin 100 unit/mL Sub-Q solution every evening [Active]; tamsulosin 0.4 mg oral capsule every day at bedtime [Active]; tadalafil 20 mg oral tablet nightly [Active]; nitrofurantoin macrocrystal 100 mg Oral capsule [Active]; - Immunization history:: Client reports having NOT received the Covid vaccine. - Social history:: Smoking status: Patient denies any tobacco usage or history of. ROS: 07:08 Constitutional: Negative for fever, chills, and weight loss, Eyes: Negative for injury, rt pain, redness, and discharge, Cardiovascular: Negative for chest pain, palpitations, and edema, Respiratory: Negative for shortness of breath, cough, wheezing, and pleuritic chest pain, Abdomen/GI: Negative for abdominal pain, nausea, vomiting, diarrhea, and constipation, Skin: Negative for injury, rash, and discoloration, Neuro: Negative for headache, weakness, numbness, tingling, and seizure, Psych: Negative for depression, anxiety, suicide ideation, homicidal ideation, and hallucinations. 07:08 MS/extremity: Positive for injury or acute deformity, pain. Exam: 07:08 Constitutional: This is a well developed, well nourished patient who is awake, alert, rt and in no acute distress. Head/Face: Normocephalic, atraumatic. Chest/axilla: Normal chest wall appearance and motion. Nontender with no deformity. No lesions are appreciated. Cardiovascular: Regular rate and rhythm with a normal S1 and S2. No gallops, murmurs, or rubs. Normal PMI, no JVD. No pulse deficits. Respiratory: Lungs have equal breath sounds bilaterally, clear to auscultation and percussion. No rales, rhonchi or wheezes noted. No increased work of breathing, no retractions or nasal flaring. Abdomen/GI: Soft, non-tender, with normal bowel sounds. No distension or tympany. No guarding or rebound. No evidence of tenderness throughout. Skin: Warm, dry with normal turgor. Normal color with no rashes, no lesions, and no evidence of cellulitis. Neuro: Awake and alert, GCS 15, oriented to person, place, time, and situation. Cranial nerves II-XII grossly intact. Motor strength 5/5 in all extremities. Sensory grossly intact. Cerebellar exam normal. Normal gait. Psych: Awake, alert, with orientation to person, place and time. Behavior, mood, and affect are within normal limits. 07:08 Musculoskeletal/extremity: Tenderness noted laterally on the left thigh, range of motion limited due to pain. No obvious deformity noted, surgical dressing in place appears to be clean dry and intact.. Vital Signs: 06:49 BP 153 / 62; Pulse 89; Resp 18; Temp 98.3(O); Pulse Ox 100% on R/A; Weight 90.72 kg ll3 (R); Height 5 ft. 11 in. (R); Pain 10/10; 07:00 BP 111 / 65; Pulse 83; Resp 18; Pulse Ox 99% on R/A; db 08:00 BP 141 / 62; Pulse 85; Resp 16; Pulse Ox 100% on R/A; db 09:34 Pain 6/10; db 10:00 BP 136 / 47; Pulse 92; Resp 16; Temp 98.2; Pulse Ox 97% on R/A; db 11:00 BP 120 / 54; Pulse 87; Resp 18; Pulse Ox 99% ; db 06:49 Body Mass Index 27.89 (90.72 kg, 180.34 cm) ll3 06:49 Pain Scale: Adult ll3 09:34 Pain Scale: Adult db MDM: 07:03 Patient medically screened. rt 11:48 Differential diagnosis: Fracture, contusion. Data reviewed: vital signs, nurses notes, rt lab test result(s), radiologic studies. Consideration of Admission/Observation We will transfer patient for continuity of care as the surgeon is at [facility]. Management of patient was discussed with the following: Intelligence Consultant: Discussed with the patient's orthopedic surgeon, will accept patient in transfer, will operate the morning. I considered the following discharge prescriptions or medication management in the emergency department Medications were administered in the Emergency Department. See MAR. Test considered but Not performed: CT: No evidence of syncope, head trauma, CT and EKG are not indicated. Counseling: I had a detailed discussion with the patient and/or guardian regarding: the historical points, exam findings, and any diagnostic results supporting the discharge/admit diagnosis, lab results, radiology results, the need to transfer to another facility. Response to treatment: the patient's symptoms have mildly improved after treatment. 01/25 08:54 Order name: CBC with Diff; Complete Time: 10:56 rt 01/25 08:54 Order name: CMP; Complete Time: 09:53 rt 01/25 10:32 Order name: Manual Differential; Complete Time: 10:56 EDMS 01/25 07:08 Order name: Femur Left XRAY; Complete Time: 08:52 rt Administered Medications: 07:29 Drug: morphine IVP or IV 4 mg Route: IVP; Infused Over: 4 mins; Site: left femoral; db 11:09 Follow up: Response: No adverse reaction db 07:29 Drug: Ondansetron IVP 4 mg Route: IVP; Site: left forearm; db 11:10 Follow up: Response: No adverse reaction db 09:34 Drug: morphine IVP or IV 4 mg Route: IVP; Infused Over: 4 mins; Site: left forearm; db 11:10 Follow up: Response: No adverse reaction db 11:16 Drug: morphine IVP or IV 4 mg Route: IVP; Infused Over: 4 mins; Site: left forearm; db 11:16 Follow up: Response: No adverse reaction db Disposition Summary: 01/25/23 09:39 Transfer Ordered Transfer Location: [facility] rt Reason: Higher level of care rt Condition: Stable rt Problem: new rt Symptoms: are unchanged rt Accepting Physician: Dr. Harris(01/25/23 11:17) db Diagnosis - Periprosthetic fracture of left hip rt Forms: - Medication Reconciliation Form rt - SBAR form rt Signatures: Dispatcher [employer] EDLulu Zavala, RN RN ll3 Caro Santoro RN RN db Liam Hanks MD MD rt Corrections: (The following items were deleted from the chart) 07:42 07:08 Hip Left 2 View+RAD.RAD.BRZ ordered. EDUT EDMS 11:17 09:39 Dr. Harris rt db
--- NOTE | 2023-01-25 09:40 | ER ---
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 Coronavirus screen: Vaccine status: Patient reports being unvaccinated. At this time, the client does not indicate any symptoms associated with coronavirus-19. Ebola Screen: No symptoms or risks identified at this time. Initial Sepsis Screen: Does the patient meet any 2 criteria? No. Patient's initial sepsis screen is negative. Does the patient have a suspected source of infection? No. Patient's initial sepsis screen is negative. Risk Assessment: Do you want to hurt yourself or someone else? Patient reports no desire to harm self or others. Onset of symptoms was January 25, 2023. Care prior to arrival: Medication(s) given: zofran 8 mg, Fentanyl 100 MCG IV initiated. 20 GA, in the left forearm, Glucose check: 122. 06:49 Method Of Arrival: EMS: [facility] 06:49 Acuity: ANNEMARIE 3 ll3 Triage Assessment: 06:54 General: Appears uncomfortable, Behavior is calm, cooperative. Pain: Complains of pain ll3 in left hip Pain does not radiate. Pain currently is 10 out of 10 on a pain scale. Neuro: Level of Consciousness is awake, alert, obeys commands, Oriented to person, place, time, situation. Musculoskeletal: Reports pain in left hip Pain is 10 out of 10 on a pain scale. Historical: - Allergies: 06:54 No Known Allergies; ll3 - Home Meds: 06:54 clopidogrel 75 mg oral tablet daily [Active]; lisinopril 20 mg Oral tablet daily ll3 [Active]; rosuvastatin 40 mg oral tablet daily [Active]; metoprolol succinate 25 mg oral Tablet, Extended Release 24 hr daily [Active]; Lantus U-100 Insulin 100 unit/mL Sub-Q solution every evening [Active]; tamsulosin 0.4 mg oral capsule every day at bedtime [Active]; tadalafil 20 mg oral tablet nightly [Active]; nitrofurantoin macrocrystal 100 mg Oral capsule [Active]; - Immunization history:: Client reports having NOT received the Covid vaccine. - Social history:: Smoking status: Patient denies any tobacco usage or history of. Screenin:43 [facility] ED Fall Risk Assessment (Adult) History of falling in the last 3 months, db including since admission Yes- fall prone (multiple falls) (3 pts) Confusion or Disorientation No (0 pts) Intoxicated or Sedated No (0 pts) Impaired Gait Yes (1 pt) Mobility Assist Device Used Yes (1 pt) Altered Elimination No (0 pt) Score/Fall Risk Level 3 or more points = High Risk Oriented to surroundings, Maintained a safe environment, Hourly rounding (assess needs \T\ fall precautionary measures) done, Used ambulatory aids as needed (educated on \T\ assisted with). Abuse screen: Denies threats or abuse. Denies injuries from another. Nutritional screening: No deficits noted. Tuberculosis screening: No symptoms or risk factors identified. Assessment: 07:29 Reassessment: Patient appears in no apparent distress at this time. Patient and/or db family updated on plan of care and expected duration. Pain level reassessed. Patient is alert, oriented x 3, equal unlabored respirations, skin warm/dry/pink. fall this AM going to the bathroom. patient states has left hip pain. General: Appears in no apparent distress. comfortable, Behavior is calm, cooperative. Pain: Complains of pain in left hip. Neuro: Level of Consciousness is awake, alert, obeys commands, Oriented to person, place, time, situation. Respiratory: Airway is patent Respiratory effort is even, unlabored, Respiratory pattern is regular, symmetrical. 08:44 Reassessment: Patient appears in no apparent distress at this time. Patient and/or db family updated on plan of care and expected duration. Pain level reassessed. Patient is alert, oriented x 3, equal unlabored respirations, skin warm/dry/pink. family is at bedside. 10:19 Reassessment: Report called to ADELA Hill at [facility]. Awaiting transportation. ss 11:07 Reassessment: Patient appears in no apparent distress at this time. Patient and/or db family updated on plan of care and expected duration. Pain level reassessed. Patient is alert, oriented x 3, equal unlabored respirations, skin warm/dry/pink. General: Appears in no apparent distress. comfortable, Behavior is calm, cooperative. Neuro: Level of Consciousness is awake, alert, obeys commands, Oriented to person, place, time, situation. 11:16 Reassessment: EMS transporting patient to receiving hospital. db Vital Signs: 06:49 BP 153 / 62; Pulse 89; Resp 18; Temp 98.3(O); Pulse Ox 100% on R/A; Weight 90.72 kg ll3 (R); Height 5 ft. 11 in. (R); Pain 10/10; 07:00 BP 111 / 65; Pulse 83; Resp 18; Pulse Ox 99% on R/A; db 08:00 BP 141 / 62; Pulse 85; Resp 16; Pulse Ox 100% on R/A; db 09:34 Pain 6/10; db 10:00 BP 136 / 47; Pulse 92; Resp 16; Temp 98.2; Pulse Ox 97% on R/A; db 11:00 BP 120 / 54; Pulse 87; Resp 18; Pulse Ox 99% ; db 06:49 Body Mass Index 27.89 (90.72 kg, 180.34 cm) ll3 06:49 Pain Scale: Adult ll3 09:34 Pain Scale: Adult db Vitals: 11:06 Cardiac Rhythm Assessment Regular. db ED Course: 06:47 Patient arrived in ED. rv1 06:54 Triage completed. ll3 06:54 Arm band placed on Patient placed in an exam room, on a stretcher, on pulse oximetry. ll3 07:00 Maintain EMS IV. Dressing intact. Good blood return noted. Site clean \T\ dry. Gauge \T\ db site: 20 G Left AC. 07:03 Liam Hanks MD is Attending Physician. rt 07:08 Caro Santoro, ADELA is Primary Nurse. db 07:43 Femur Left XRAY In Process Unspecified. EDMS 08:43 No provider procedures requiring assistance completed. db 08:44 Patient has correct armband on for positive identification. Bed in low position. Call db light in reach. Side rails up X2. Pulse ox on. NIBP on. Warm blanket given. 08:56 initiated a transfer with Zoilarichard from the [facility]. eb 09:[address] Harris the orthopedic neonatal intensive care nurse for [facility] with Dr. Hanks for eb patient transfer consultation. 09:53 connected the hospitalist neonatal intensive care nurse for [facility] with Dr. Hanks for patient eb transfer consultation. 10:01 administrative approval given by Luann Bhat/ patient has been accepted to [facility] Rm [id number]/ Dr. Andrew Montes De Oca has accepted the patient in transfer. report to be called to [phone]. 11:10 Patient transferred, IV remains in place. db Administered Medications: 07:29 Drug: morphine IVP or IV 4 mg Route: IVP; Infused Over: 4 mins; Site: left femoral; db 11:09 Follow up: Response: No adverse reaction db 07:29 Drug: Ondansetron IVP 4 mg Route: IVP; Site: left forearm; db 11:10 Follow up: Response: No adverse reaction db 09:34 Drug: morphine IVP or IV 4 mg Route: IVP; Infused Over: 4 mins; Site: left forearm; db 11:10 Follow up: Response: No adverse reaction db 11:16 Drug: morphine IVP or IV 4 mg Route: IVP; Infused Over: 4 mins; Site: left forearm; db 11:16 Follow up: Response: No adverse reaction db Medication: 11:10 VIS not applicable for this client. db Outcome: 09:39 ER care complete, transfer ordered by . rt 11:10 Transferred by ground EMS to [facility], Transfer form completed. db 11:10 Condition: stable 11:10 Instructed on the need for transfer. 11:17 Patient left the ED. db Signatures: Dispatcher [employer] EDMS Mindy Burton RN Dina Infante Lynsea, RN RN ll3 Caro Santoro RN RN db Liam Hanks MD MD rt Gwen Subramanian rv1 Corrections: (The following items were deleted from the chart) 11:09 11:06 BP 136 / 47; Pulse 92bpm; Resp 16bpm; Pulse Ox 97% RA; Temp 98.2F; db db 11:11 10:00 BP 120 / 54; Pulse 87bpm; Resp 18bpm; Pulse Ox 99%; db db
[2023-01-25 09:52] LABS: Albumin 3.3 g/dL (3.4-5.0); Bilirubin Total 0.5 mg/dL (0.2-1.0); Potassium 4.6 mEq/L (3.5-5.1); Protein, Total 6.8 g/dL (6.4-8.2)
[2023-01-25 10:31] LABS: Blood Morphology Comment NOT SEEN (NOT SEEN); Platelet Estimate ADEQ
[2023-01-25 11:50] VITALS: TEMP 98.2
[2023-01-25 11:51] VITALS: BP 120/54; O2SAT 99
== END 2023-01-25 11:17 | disposition short-term general hospital (02) ==
LOC: ER 06:43
DX: S72.092A Other fracture of head and neck of left femur, initial encounter for closed fracture (principal); M97.02XA Periprosthetic fracture around internal prosthetic left hip joint, initial encounter
CPT/HCPCS: 85025; 36415; 80053; 73552; 99285; J2405